=== PATIENT | female | born 1960 | race African-American/Black ===

== ENCOUNTER → 2016-07-04 | Outpatient (CLI) | payer OTHER ==
--- NOTE | 2016-07-04 17:15 | WOMENS IMAGING REPORT ---
EXAM DESCRIPTION: 3D DX MAMMO BILAT COMPLETED DATE/TIME: 07/04/2016 9:30 am REASON FOR STUDY: N63 LUMP R95.0 LOCALIZED ENLARGED LYMPH NODES C50.412 MALIG NEOPLASM OF UPPER-OUT ER QUADRANT OF LEFT FEMAL N63 UNSPECIFIED LUMP IN BREAST COMPARISON: PET-CT exams 09/19/2015, 05/14/2016 Multiple mammograms since 06/29/2015 TECHNIQUE: Standard craniocaudal and mediolateral oblique views of each breast recorded using digita l acquisition and breast tomosynthesis. Additional compression magnification views left breast lumpectomy site LIMITATIONS: None. FINDINGS: RIGHT BREAST MASSES: No suspicious masses. CALCIFICATIONS: No new or suspicious calcifications. ARCHITECTURAL DISTORTION: None. DEVELOPING DENSITY: None. ASYMMETRY: None noted. OTHER: No other significant findings. LEFT BREAST MASSES: No suspicious masses. CALCIFICATIONS: No new or suspicious calcifications. ARCHITECTURAL DISTORTION: Left breast 9 o'clock architectural distortion in the area of prior surgery . DEVELOPING DENSITY: None. ASYMMETRY: None noted. OTHER: No other significant finding. Read with the assistance of CAD: .[facility] - R2 Cenova Version 1.3 .[facility] Imaging - R2 Cenova Version 1.3 .[facility] - R2 Cenova Version 2.4 .[facility] [place] - R2 Cenova Version 2.4 .[facility] - R2 Shel[employer]ocate Version 9.2 BREAST DENSITY: d. The breasts are extremely dense, which lowers the sensitivity of mammography. BIRAD: 2 Benign findings. RECOMMENDATION: RECOMMENDED FOLLOW UP: Please continue right breast screening, left breast diagnosti c tomosynthesis exam in June 2017 SPECIFIC INTERVENTION/IMAGING/CONSULTATION RECOMMENDED:No additional intervention/ imaging/consultati on needed at this time. COMMUNICATION:Patient notified by letter COMMENT: PATIENT NOTIFIED BY LETTER. The [employer] (ACR) has developed recommendations for screening MRI of the breast s in certain patient populations, to be used in conjunction with mammography. Breast MRI surveillanc e may be appropriate for women with more than 20% lifetime risk of developing breast cancer as deter mined by genetic testing, significant family history of the disease, or history of mantle radiation f or Hodgkins Disease. ACR Practice Guidelines 2008. DBT Technology DBT is a type of tomographic mammography. With conventional mammography, overlapping breast tissue ma y make lesions difficult to detect, even with good compression. DBT uses an x-ray tube that rotates a round the breast, taking images at different angles. These images are then combined to create thin sl ices of the breast that the radiologist can view as a 3D reconstruction. The Hologic unit can perform full-field digital mammograms (2D imaging); or DBT (3D imaging); or both, in a combination mode that quickly performs both the mammogram and the tomosynthesis scan while the breast is still compressed. PQRS 6045F: Fluoroscopic imaging is not utilized for breast tomosynthesis. TECHNICAL DOCUMENTATION: FINDING NUMBER: (1) ASSESSMENT: (1) JOB ID: [id number] [employer]- All Rights Reserved
== END ==
LOC: RAD 08:08
PROVIDERS: ATTEND Radiology Radiation Oncology
DX: N63 Unspecified lump in breast (principal); R59.0 Localized enlarged lymph nodes
CPT/HCPCS: G0279; G0204; 77062; 77066

== ENCOUNTER → 2016-08-11 | Outpatient (CLI) | payer OTHER | LOC: RAD 07:36 | PROVIDERS: ATTEND Internal Medicine | DX: C01 Malignant neoplasm of base of tongue (principal) | CPT/HCPCS: 70491; 82565 ==

== ENCOUNTER → 2016-11-10 | Outpatient (CLI) | payer OTHER ==
--- NOTE | 2016-11-10 10:45 | RADIOLOGY REPORT (SQ) ---
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 Reconstructed coronal and sagittal MPR images reviewed. All images stored on PACS. All CT scanners at this facility use dose modulation, iterative reconstruction, and/or weight based d osing when appropriate to reduce radiation dose to as low as reasonably achievable (ALARA). [facility]: Dose Right [facility]: CareDose [facility]: Dose Right [facility]: Teradose 4D [facility]: StyleUp CONTRAST TYPE AND DOSE: 75mL Isovue 370- low osmolar. RENAL FUNCTION: Creatinine 0.8 RADIATION DOSE: 19.21 mGy. LIMITATIONS: Streak artifact from metallic dental work FINDINGS: SKULL BASE: Inferior brain parenchyma unremarkable MAJOR SALIVARY GLANDS: No solid or cystic masses. No inflammatory changes. LYMPHADENOPATHY: No adenopathy. Tiny less than 5 mm short axis submental lymph nodes are present unc hanged from imaging dating back to June 2015 MUCOSAL MASSES OR ASYMMETRY: No mucosal masses or asymmetry. LARYNX/CORDS: No abnormal findings. VASCULAR STRUCTURES: The major vessels are patent. LUNG APICES: Clear. BONES: Intact. THYROID: Normal size. No masses. PARANASAL SINUSES: Clear. OTHER: There is a right-sided central line with the tip in the superior cava IMPRESSION: NO SIGNIFICANT FINDING IN THE SOFT TISSUES OF THE NECK. TECHNICAL DOCUMENTATION: JOB ID: [id number] Quality ID # [id number]: Final reports with documentation of one or more dose reduction techniques (e.g., Au tomated exposure control, adjustment of the mA and/or kV according to patient size, use of iterative reconstruction technique) 2010 [employer]- All Rights Reserved
== END ==
LOC: RAD 07:23
PROVIDERS: ATTEND Internal Medicine
DX: C01 Malignant neoplasm of base of tongue (principal)
CPT/HCPCS: 70491; 82565

== ENCOUNTER → 2017-03-15 | Outpatient (CLI) | payer OTHER | LOC: OD 15:33 | PROVIDERS: ATTEND Nurse Practitioner Acute Care | DX: R50.9 Fever, unspecified (principal) | CPT/HCPCS: 87086; 87804 ==

== ENCOUNTER → 2017-05-07 | Outpatient (CLI) | payer OTHER ==
--- NOTE | 2017-05-07 11:31 | RADIOLOGY REPORT (SQ) ---
EXAM DESCRIPTION: VENOUS UNILATERAL UPPER COMPLETED DATE/TIME: 05/07/2017 10:46 am REASON FOR STUDY: RUE HX DVT I82.629 I82.629 ACUTE EMBOLISM AND THROMBOSIS OF DEEP VN UNSP UP EXT COMPARISON: None. TECHNIQUE: Dynamic and static rey scale and color images acquired of the right arm venous system. S elected spectral images acquired with additional compression and augmentation maneuvers. The contrala teral subclavian vein and internal jugular vein were also imaged. Images stored on PACS. LIMITATIONS: None. FINDINGS: INTERNAL JUGULAR VEIN: Normal phasicity, compression, augmentation. No visualized echogeni c material on rey scale. No defects on color images. Comparison opposite side normal. SUBCLAVIAN VEIN: Normal compression, augmentation. No visualized echogenic material on rey scale. No defects on color images. AXILLARY VEIN: Normal compression, augmentation. No visualized echogenic material on rey scale. No d efects on color images. BRACHIAL VEIN: Normal compression, augmentation. No visualized echogenic material on rey scale. No d efects on color images. BASILIC VEIN: Normal compression, augmentation. No visualized echogenic material on rey scale. No de fects on color images. CEPHALIC VEIN: Normal compression, augmentation. No visualized echogenic material on rey scale. No d efects on color images. OTHER: No other significant finding. CONTRALATERAL SUBCLAVIAN VEIN AND INTERNAL JUGULAR VEIN: Normal phasicity, compression and augmentation. No visualized echogenic material on rey scale. No de fects on color images. IMPRESSION: NO EVIDENCE DVT OR SVT IN THE RIGHT ARM. TECHNICAL DOCUMENTATION: JOB ID: [id number] [employer]- All Rights Reserved
== END ==
LOC: SP 09:09
PROVIDERS: ATTEND Internal Medicine
DX: I82.621 Acute embolism and thrombosis of deep veins of right upper extremity (principal)
CPT/HCPCS: 93971

== ENCOUNTER → 2017-05-20 | Outpatient (CLI) | payer OTHER ==
--- NOTE | 2017-05-21 18:09 | RADIOLOGY REPORT (SQ) ---
EXAM DESCRIPTION: PET CT SKULL/THIGH COMPLETED DATE/TIME: 05/20/2017 9:06 pm REASON FOR STUDY: MALIGNANT NEOPLASM OF BASE OF TONGUE C01 MALIGNANT NEOPLASM OF BASE OF TONGUE COMPARISON: CT soft tissue neck 11/10/2016, 08/11/2016 PET-CT 05/14/2016, 09/19/2015, 07/04/2015 RADIONUCLIDE AND DOSE: 12.3 mCi F18 FDG The route of agent administration: Intravenous FASTING BLOOD SUGAR: 87 mg/dl CONTRAST TYPE AND DOSE: No CT contrast given. TECHNIQUE: Blood glucose level was verified. Above dose of FDG was injected intravenously. 2-D seg mented attenuation correction images were obtained from the base of the skull to the midthighs. Nonc ontrast CT images were obtained for attenuation correction and fusion with emission images. CT image s were performed without oral or intravenous contrast and are not sensitive for parenchymal lesions. A series of overlapping emission PET images were obtained. Images reviewed and manipulated [facility] by the radiologist. Images stored on PACS. LIMITATIONS: None. FINDINGS: HEAD AND NECK: Patient is surgery, with multiple clips along the left floor of mouth, and fatty atrophy of the left half of the time. No increased metabolic activity in this area seen. There is increased uptake along the right mid 3rd of the tongue without a discrete mass by CT, SUV 4. 3. There is also activity in the right submandibular gland which is normal size, with SUV of 3.1. A focus of increased uptake is present in the left nasopharynx at the fossa of Rosenmuller without a discrete mass, activity SUV 5.4. CHEST: No areas of abnormal metabolic activity in the chest. No axillary or breast hypermetabolic le sions. ABDOMEN AND PELVIS: No areas of abnormal metabolic activity in the abdomen or pelvis. Expected physi ologic activity is present in the genitourinary system and bowel. PROXIMAL LOWER EXTREMITIES: No areas of abnormal metabolic activity in the soft tissues of the lower extremities. BONES: No abnormal metabolic activity in the visualized skeleton. ADDITIONAL CT FINDINGS: Right upper pole intrarenal nonobstructive calculus less than 5 mm in size. Gastrostomy tube tip in the gastric body. Right permanent central line tip superior vena cava. Pulm onary fibrosis at both lung bases. OTHER: Liver background activity 2.1 SUV. Blood pool background activity 1.5 SUV. IMPRESSION: Post therapeutic changes in the left floor of mouth with fatty atrophy of the left tongu e and surgical resection of the left submandibular gland and jugulodigastric lymph nodes. No increas ed metabolic activity in this area. Increased activity in the right half of the tongue and right submandibular gland of uncertain clinica l significance Focal increased uptake in the left nasopharynx, without a discrete mass. Question nasopharyngeal muc osal malignancy Save TECHNICAL DOCUMENTATION: JOB ID: [id number] [employer]- All Rights Reserved
== END ==
LOC: RAD 16:08
PROVIDERS: ATTEND Internal Medicine
DX: C01 Malignant neoplasm of base of tongue (principal)
CPT/HCPCS: 78815; A9552

== ENCOUNTER → 2017-07-10 | Outpatient (CLI) | payer OTHER ==
--- NOTE | 2017-07-11 08:01 | WOMENS IMAGING REPORT ---
EXAM DESCRIPTION: 3D DX MAMMO BILAT COMPLETED DATE/TIME: 07/10/2017 9:22 am REASON FOR STUDY: FEMALE BREAST CA; C50.412 C50.412 MALIG NEOPLASM OF UPPER-OUTER QUADRANT OF LEFT FEMAL COMPARISON: Multiple since 06/29/2015 PET-CT 05/20/2017 TECHNIQUE: Standard craniocaudal and mediolateral oblique views of each breast recorded using digita l acquisition and breast tomosynthesis. Additional left breast exaggerated craniocaudad view, left breast 90 mediolateral view and compressi on magnification views of the left breast lumpectomy site in the CC and MLO orientations. LIMITATIONS: None. FINDINGS: RIGHT BREAST MASSES: No suspicious masses. CALCIFICATIONS: No new or suspicious calcifications. ARCHITECTURAL DISTORTION: None. DEVELOPING DENSITY: None. ASYMMETRY: None noted. OTHER: No other significant findings. LEFT BREAST MASSES: No suspicious masses. CALCIFICATIONS: No new or suspicious calcifications. ARCHITECTURAL DISTORTION: Postoperative architectural distortion is seen in the lateral left breast a bout the 3 o'clock position DEVELOPING DENSITY: None. ASYMMETRY: None noted. OTHER: There is skin thickening left breast post radiation therapy Read with the assistance of CAD: .[facility] - R[facility] Cenova Version 1.3 .[facility] Imaging - R2 Cenova Version 1.3 .[facility] Imaging - R2 Cenova Version 2.4 .[facility] [place] - R2 Cenova Version 2.4 .[facility] - R2 [employer] Version 9.2 IMPRESSION: No mammographic/tomosynthesis evidence for malignancy bilaterally. BREAST DENSITY: d. The breasts are extremely dense, which lowers the sensitivity of mammography. BIRAD: 2 Benign findings. RECOMMENDATION: RECOMMENDED FOLLOW UP: Please continue right breast screening tomosynthesis, left br east diagnostic tomosynthesis in June 2018 SPECIFIC INTERVENTION/IMAGING/CONSULTATION RECOMMENDED:No additional intervention/ imaging/consultati on needed at this time. COMMUNICATION:Patient notified by letter COMMENT: The patient has been notified of the results by letter per MQSA requirements. Additional no tification policies are in place for contacting patient with suspicious or incomplete findings. Quality ID #[id number]: The [employer] recommends an annual screening mammogram for women aged 40 years or over. This facility utilizes a reminder system to ensure that all patients receive reminder letters, and/or direct phone calls for appointments. This includes reminders for routine scr eening mammograms, diagnostic mammograms, or other Breast Imaging Interventions when appropriate. Th is patient will be placed in the appropriate reminder system. The [employer] (ACR) has developed recommendations for screening MRI of the breast s in certain patient populations, to be used in conjunction with mammography. Breast MRI surveillanc e may be appropriate for women with more than 20% lifetime risk of developing breast cancer as deter mined by genetic testing, significant family history of the disease, or history of mantle radiation f or Hodgkins Disease. ACR Practice Guidelines 2008. DBT Technology DBT is a type of tomographic mammography. With conventional mammography, overlapping breast tissue ma y make lesions difficult to detect, even with good compression. DBT uses an x-ray tube that rotates a round the breast, taking images at different angles. These images are then combined to create thin sl ices of the breast that the radiologist can view as a 3D reconstruction. The [facility] unit can perform full-field digital mammograms (2D imaging); or DBT (3D imaging); or both, in a combination mode that quickly performs both the mammogram and the tomosynthesis scan while the breast is still compressed. PQRS 6045F: Fluoroscopic imaging is not utilized for breast tomosynthesis. TECHNICAL DOCUMENTATION: FINDING NUMBER: (1) ASSESSMENT: (1) JOB ID: [id number] [employer]- All Rights Reserved
== END ==
LOC: WI 08:58
PROVIDERS: ATTEND Internal Medicine
DX: C50.412 Malignant neoplasm of upper-outer quadrant of left female breast (principal)
CPT/HCPCS: 77066; G0279; 77062

== ENCOUNTER → 2017-09-24 | Outpatient (CLI) | payer OTHER ==
[~2017-09-24] MED LIST: LIDOCAINE 2% INJ (20 MG/ML) 20 ML MDV ONE
--- NOTE | 2017-09-24 17:05 | WOMENS IMAGING REPORT ---
EXAM DESCRIPTION: U/S BREAST UNILAT LIMITED COMPLETED DATE/TIME: 09/24/2017 9:49 am REASON FOR STUDY: MALIGNANT NEOPLASM OF UPPER-INNER QUAD OF L BREAST; C50.212 C50.212 MALIG NEOPLAS M OF UPPER-INNER QUADRANT OF LEFT FEMAL COMPARISON: CT chest abdomen pelvis 09/14/2017 PET-CT 05/20/2017 TECHNIQUE: Real-time and static grayscale imaging performed of the left axilla targeted to the area of clinical concern. Selected color Doppler images recorded. LIMITATIONS: None. FINDINGS: Patient indicates pain/tenderness in the left axilla with questionable palpable abnormalit y. Ultrasound was performed by both myself as well as the technologist. No discrete solid mass is ident ified. There is faint bandlike scar in the left axilla, without a discrete nodule or mass. No biops y in this area was performed today. These findings were discussed with Dr. Calle. IMPRESSION: No suspicious findings detected by ultrasound. BIRAD: 1 Negative. RECOMMENDATION: RECOMMENDED FOLLOW-UP: Follow-up as clinically indicated. COMMENT: The [employer] (ACR) has developed recommendations for screening MRI of the breasts in certain patient populations, to be used in conjunction with mammography. Breast MRI s urveillance may be appropriate for women with more than 20% lifetime risk of developing breast cancer as determined by genetic testing, significant family history of the disease, or history of mantle r adiation for Hodgkins Disease. ACR Practice Guidelines 2007. TECHNICAL DOCUMENTATION: JOB ID: [id number] [employer]- All Rights Reserved Reading location - IP/workstation name: [email or web address]
== END ==
LOC: WI 08:15 → EDSTATUS 09:56 → WI 09:59
PROVIDERS: ATTEND Internal Medicine
DX: C50.212 Malignant neoplasm of upper-inner quadrant of left female breast (principal)
CPT/HCPCS: 76642; J3490

== ENCOUNTER → 2017-09-27 | Outpatient (CLI) | payer OTHER ==
--- NOTE | 2017-09-27 12:39 | RADIOLOGY REPORT (SQ) ---
EXAM DESCRIPTION: COOKIE SWALLOW COMPLETED DATE/TIME: 09/27/2017 8:38 am REASON FOR STUDY: DYSPHAGIA R13.10 DYSPHAGIA, UNSPECIFIED tongue base malignancy C 02.9 food in pha rynx causing other injury, sequela T17.228 S COMPARISON: CT neck 09/14/2017 TECHNIQUE: Videofluoroscopic swallowing examination was performed in conjunction with speech patholo gy. Videofluoroscopic imaging was obtained and reviewed and these are the findings: RADIATION DOSE: Total fluoroscopy time: 3 minutes 57 seconds 2 fluoroscopy images saved to PACS. LIMITATIONS: None FINDINGS: The patient was brought into the fluoro room and placed upright on a modified barium swall ow chair. The patient was then given multiple consistencies mixed with barium to swallow under live fluoroscopic video guidance. According to the Speech Pathologist there was laryngeal penetration and tracheal aspiration with post swallow residuals following multiple consistencies. Very weak swallow ing mechanism is noted. Moderate post swallow residual materials noted within the vallecula and piri form sinuses following multiple consistencies. Multiple surgical clips noted overlying the neck. Pl ease see speech pathology report for further details and recommendations. IMPRESSION: VERY WEAK SWALLOWING MECHANISM WITH LARYNGEAL PENETRATION AND TRACHEAL ASPIRATION OF POS T SWALLOW RESIDUALS FOLLOWING MULTIPLE CONSISTENCIES.PLEASE SEE SPEECH PATHOLOGIST REPORT FOR OTHER F INDINGS AND RECOMMENDATIONS. COMMENT: Quality ID [id number]: Final reports for procedures using fluoroscopy that document radiation exp osure indices, or exposure time and number of fluorographic images (if radiation exposure indices are not available) TECHNICAL DOCUMENTATION: JOB ID: [id number] [employer]- All Rights Reserved Reading location - IP/workstation name: [email or web address]
--- NOTE | 2017-09-28 08:34 | ST Modified Barium Swallow ---
Recommendation - Recommendations Recommendations: Recommend nectar thick and honey thick consistencies for pleasure feeds and therapeutic trials. May have small thin liquid spoon sips utilizing modified supraglottic swallow maneuver. Recommend patient continue with dysphagia treatment to try to increase textures able to tolerate. 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 ST Modified Barium Swallow - General Date: 09/27/17 Referring Physician: Dr. Calle Risks/Precautions: Aspiration Reason for Referral: monitor swallowing skills - History History obtained from: Patient -: Medical - Ms. Levy had base of tongue resection, partial pharyngectomy, and free flap reconstruction performed 01/22/17. Ms. Levy reports had swallow study at Dr. Lima's office. Reports recommended she eat soups and nectar thick liquids. Ms. Levy continues to be PEG dependent for nutrition and hydration, reports takes very little by mouth because it is difficult to swallow. She had 2.5 months through home health speech therapy and reports improvements in speech. Reports before speech was barely talking at all. Also reports improvement in swallowing - reports after treatment able to drink nectar thick liquids. Ms. Levy is currently receiving outpatient dysphagia treatment, utilizing NMES in conjunction with dysphagia exercises and PO trials. Medications: Oxycodine. Antibiotic Allergies: Aspirin - Functional Status Prior Functional Status: INDEPENDENT: feeding - Subjective Patient/caregiver goal(s): better swallow, safe swallow Cognitive-Linguistic Function: WNL Speech Intelligibility: Reduced intelligibility Current Nutritional Means: PEG Current PO diet: Thickened liquids - nectar liquids Current symptoms: Aspiration Pain: Patient reports, 0/5 - patient stated she wasn't feeling "well", but no pain reported. - Objective Assessment: Upright, Left Lateral - Food Trials Used Food trials used: Thin liquids, Honey-thickened liquids, [place] thick liquids, Pureed The patient: Was Able to Self Feed, via spoon - Oral-Motor Skills Dentition: Full Velo-pharyngeal function: Unremarkable - Assessment Oral prep: Adeq, for consist. tested Labial closure: Adequate Leakage: None Mastication: no chewing observed Lingual Movement: Weak - reduced base of tongue retraction Oral stage: Impaired Bolus Propulsion Oral Stage: Patient was unable to propel puree bolus back for swallow attempt, patient spit out pudding trial. - Pharyngeal Stage Initiation of Pharyngeal Stage Reflex: Delayed Reflex Delay Time (Seconds): 2 - due to reduced BOT retraction Decreased laryngeal elevation: Yes Reduced Velopharyngeal Closure: no Reduced pressure generation: Yes reduced tongue-based retraction: Yes Pre-swallow pooling in valleculae: Mild Pre-Swallow pooling in pyriforms: None Reduced Thyro-Hyoid approximation: Yes Reduced pharyngeal peristalsis/contraction: Yes Multiple Swallows with: Ineffective Clearance Post-swallow residulas vallecular: Mild Post-Swallow residuals in pyriforms: Moderate Pharyngeal Stage Comments: Patient demonstrated generally reduced movement for pharyngeal stage of the swallow. Residue was seen to remain in valleculae and pyriform sinus, which was then seen to enter laryngeal vestibule after the swallow. Penetration seen on nectar liquids and thin liquids, aspiration seen on thin liquids. Utilized modified supraglottic swallow technique for subsequent thin liquid trials, which reduced aspiration by redirecting penetrated material from laryngeal vestibule. For honey thick liquids, reduced penetration seen. Patient consistently requires multiple swallow for clearance of all textures. - Fall Risk Assessment Medications/Conditions that increase fall risks include: Antidepressants, sedatives, anti-arrhythmic, diuretic, benzodiazipenes, neuroleptics. BP regulation problems, cardiac problems, balance or gait deficits, neurological problems. Is patient considered at risk for falls: no Fall Risk Actions Taken: No action needed - Behavioral Observations During evaluation process patient: was cooperative, able to answer questions - Treatment / Educational Needs: Treatment/Education Needs: Treatment consisted of patient education on the role of the Speech Pathologist. Patient's plan of care and golas were communicated as well as scheduling and attendance policies. Recommendations for initial home program were shared. Patient demonstrated understanding and verbalized agreement. - Impression/Summary Laryngeal Penetration: Yes, after swallow Consistency: Thin, [place] Tracheal Aspiration: yes - thin liquids, cough, after swallow Productive cough: Yes Effective Clearing: partial clearing Effective compensatory strategies: throat clear & reswallow, supraglottic swallow Patient presents with: Oral-Pharyngeal dysph., Severe Risk of Aspiration: Moderate Evaluation and Findings: This patient presents with severe oral and pharyngeal phase dysphagia. This is characterized by reduced bolus propulsion, reduced tongue base retraction, and reduced laryngeal elevation/pharyngeal constriction. These deficits resulted in significant residue in the pharynx after the swallow, which then lead to penetration and/or aspiration of residuals after the swallow. Safest textures were judged to be nectar and honey thick consistencies. Patient demonstrated reduced aspiration of thin liquids using modified supraglottic/throat-clear and reswallow maneuver. - Recommendations Liquid Diet Modification: Honey-Thick, [place]-Thick, Thin - with strategies Strict aspiration precautions: Yes Pt/Family education and followup with MD: Yes Dysphagia therapy with PUMPMAN: f/u with current thera. Recommended techniques: Fully Upright During Meal, Liquids by Teaspoon Only Information, Precautions and Recommendations: Patient (Written), Patient (Verbal ) - Plan of Care Patient to follow-up with referring physician: Yes Strategies to optimize patient understanding include:: ongoing assessment of educational needs, implementation of educational strategies, and re-education. - - -: Thank you for the opportunity to work with this patient and his/her family. Should you have any questions about this patient's plan or progress, I can be reached at [phone]. Charge G Code? - - -: No
== END ==
LOC: RAD 07:35
PROVIDERS: ATTEND Internal Medicine
DX: R13.10 Dysphagia, unspecified (principal)
CPT/HCPCS: 74230

== ENCOUNTER → 2018-01-18 | Outpatient (CLI) | payer OTHER ==
--- NOTE | 2018-01-18 13:29 | RADIOLOGY REPORT (SQ) ---
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 TECHNIQUE: Axial images acquired through the brain without and with intravenous contrast. Images re viewed with bone, brain and subdural windows. Additional sagittal and coronal reconstructions were g enerated. Images stored on PACS. All CT scanners at this facility use dose modulation, iterative reconstruction, and/or weight based d osing when appropriate to reduce radiation dose to as low as reasonably achievable (ALARA). [facility]: Dose Right [facility]: CareDose [facility]: Dose Right [facility]: Teradose 4D [facility]: [facility] CONTRAST TYPE AND DOSE: 75 mL Omnipaque 350- low osmolar. RENAL FUNCTION: Creatinine 0.6. RADIATION DOSE: . LIMITATIONS: None. FINDINGS: VENTRICLES: Normal size and contour. CEREBRUM: No masses. No hemorrhage. No midline shift. Normal rey/white matter differentiation. No ev idence for acute infarction. No enhancing lesions. CEREBELLUM: No masses. No hemorrhage. No alteration of density. No evidence for acute infarction. No enhancing lesions. EXTRA-AXIAL SPACES: No fluid collections. No enhancing lesions. ORBITS AND GLOBE: No intra- or extraconal masses. Normal contour of globe without masses. CALVARIUM: No fracture. PARANASAL SINUSES: No fluid or mucosal thickening. SOFT TISSUES: No mass or hematoma. OTHER: No other significant finding. IMPRESSION: NORMAL BRAIN CT WITHOUT AND WITH CONTRAST. EVIDENCE OF ACUTE STROKE: NO. TECHNICAL DOCUMENTATION: JOB ID: [id number] Quality ID # [id number]: Final reports with documentation of one or more dose reduction techniques (e.g., Au tomated exposure control, adjustment of the mA and/or kV according to patient size, use of iterative reconstruction technique) 2010 [employer]- All Rights Reserved Reading location - IP/workstation name: [email or web address]
--- NOTE | 2018-01-18 13:39 | RADIOLOGY REPORT (SQ) ---
EXAM DESCRIPTION: CT SOFT TISSUE NECK WITH COMPLETED DATE/TIME: 01/18/2018 1:09 pm REASON FOR STUDY: C01 C01 MALIGNANT NEOPLASM OF BASE OF TONGUE COMPARISON: 09/14/2017 and 11/10/2016. TECHNIQUE: Post IV contrasted scanning from skull base through lung apices with review of bone, soft tissue and lung windows. Reconstructed coronal and sagittal MPR images reviewed. All images stored on PACS. All CT scanners at this facility use dose modulation, iterative reconstruction, and/or weight based d osing when appropriate to reduce radiation dose to as low as reasonably achievable (ALARA). [facility]: Dose Right [facility]: CareDose [facility]: Dose Right [facility]: Teradose 4D [facility]: [facility] CONTRAST TYPE AND DOSE: contrast/concentration: Isovue 350.00 mg/ml; Total Contrast Delivered: 75.0 ml; Total Saline Delivered: 55.0 ml RENAL FUNCTION: Creatinine 0.6. RADIATION DOSE: CT Rad equipment meets quality standard of care and radiation dose reduction techniq ues were employed. CTDIvol: 16.6 - 48.6 mGy. DLP: 2331 mGy-cm. . LIMITATIONS: None. FINDINGS: SKULL BASE: Intact. MAJOR SALIVARY GLANDS: No solid or cystic masses. No inflammatory changes. LYMPHADENOPATHY: Previously seen submental lymph node on the right side is unchanged, measuring appro ximately 9 mm. Previously seen lymph node immediately adjacent to the angle of the mandible also unc hanged, measuring approximately 8 mm. There is a lymph node located just superficial to the vascular bundle on the right which has increased in size. Current measurements are 9 x 12 mm. This is immed iately adjacent to the skin marker. This is at the level of the angle of the mandible. MUCOSAL MASSES OR ASYMMETRY: Again seen are stable surgical changes involving the floor of the mouth on the left side with numerous surgical clips and fatty changes. LARYNX/CORDS: No abnormal findings. VASCULAR STRUCTURES: The major vessels are patent. LUNG APICES: Clear. BONES: Intact. THYROID: Normal size. No masses. PARANASAL SINUSES: Clear. OTHER: No other significant finding. IMPRESSION: 1. PALPABLE FINDING ON THE RIGHT SIDE CORRESPONDS WITH AN ENLARGED CERVICAL LYMPH NODE WHICH HAS INCR EASED IN SIZE SINCE THE PRIOR STUDY. OTHER LYMPH NODES IN THE SUBMANDIBULAR AND SUBMENTAL REGION ARE UNCHANGED. NO OTHER SIGNIFICANT CERVICAL ADENOPATHY. 2. STABLE SURGICAL CHANGES INVOLVING THE FLOOR OF THE MOUTH ON THE LEFT. TECHNICAL DOCUMENTATION: JOB ID: [id number] Quality ID # 436: Final reports with documentation of one or more dose reduction techniques (e.g., Au tomated exposure control, adjustment of the mA and/or kV according to patient size, use of iterative reconstruction technique) 2010 [employer]- All Rights Reserved Reading location - IP/workstation name: [facility]
== END ==
LOC: RAD 12:23
PROVIDERS: ATTEND Internal Medicine
DX: C01 Malignant neoplasm of base of tongue (principal)
CPT/HCPCS: 70470; 70491; 82565

== ENCOUNTER → 2018-01-22 | Outpatient (CLI) | payer OTHER ==
--- NOTE | 2018-01-23 08:41 | RADIOLOGY REPORT (SQ) ---
EXAM DESCRIPTION: PET CT SKULL/THIGH COMPLETED DATE/TIME: 01/22/2018 7:37 pm REASON FOR STUDY: MALIGNANT NEOPLASM OF BASE OF TONGUE C01 MALIGNANT NEOPLASM OF BASE OF TONGUE COMPARISON: CT soft tissue neck 01/18/2018 CT soft tissue neck chest abdomen and pelvis 09/24/2017 PET-CT 05/20/2017, 05/24/2016, 07/04/2015 RADIONUCLIDE AND DOSE: 11.5 mCi F18 FDG The route of agent administration: Intravenous FASTING BLOOD SUGAR: 81 mg/dl CONTRAST TYPE AND DOSE: No CT contrast given. TECHNIQUE: Blood glucose level was verified. Above dose of FDG was injected intravenously. 2-D seg mented attenuation correction images were obtained from the base of the skull to the midthighs. Nonc ontrast CT images were obtained for attenuation correction and fusion with emission images. CT image s were performed without oral or intravenous contrast and are not sensitive for parenchymal lesions. A series of overlapping emission PET images were obtained. Images reviewed and manipulated at [facility] work station by the radiologist. Images stored on PACS. LIMITATIONS: None. FINDINGS: HEAD AND NECK: At the tip of the tongue, just to the left of midline 8 2 cm mass is presen t which is hypermetabolic, SUV of 8.3 worrisome for tumor recurrence. Remainder of the leftward half of the tongue exhibits fatty atrophy. In the right neck soft tissues deep to the sternocleidomastoid muscle, a 3 x 1.6 cm conglomerate mass of adenopathy is present on axial image 34 with SUV of 5.7. The right clavicle itself demonstrates a subcentimeter focus of bony activity of SUV 2.9 worrisome fo r bony metastatic lesion. Remainder of the neck soft tissues demonstrates postsurgical changes along the left tongue base with denervation and fatty change. CHEST: No areas of abnormal metabolic activity in the chest. ABDOMEN AND PELVIS: No areas of abnormal metabolic activity in the abdomen or pelvis. Expected physi ologic activity is present in the genitourinary system and bowel. PROXIMAL LOWER EXTREMITIES: No areas of abnormal metabolic activity in the soft tissues of the lower extremities. BONES: Punctate subcentimeter focus of increased activity in the right clavicle worrisome for metasta tic involvement ADDITIONAL CT FINDINGS: Stones in the gallbladder. Gastrostomy tube tip in the stomach OTHER: Liver background SUV 1.9. Blood pool background SUV 1.4 IMPRESSION: Hypermetabolic soft tissue at the tip of the tongue to the left of midline worrisome for recurrent tumor. Right neck metabolically active adenopathy. Punctate focus of activity right clavicle were from meta static disease TECHNICAL DOCUMENTATION: JOB ID: [id number] [employer]- All Rights Reserved Reading location - IP/workstation name: [email or web address]
== END ==
LOC: RAD 15:59
PROVIDERS: ATTEND Internal Medicine
DX: C01 Malignant neoplasm of base of tongue (principal)
CPT/HCPCS: 78815; A9552

== ENCOUNTER → 2018-02-08 | Day surgery (SDC) | payer OTHER ==
--- NOTE | 2018-02-08 10:51 | RADIOLOGY REPORT (SQ) ---
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 TECHNIQUE: Using a sterile prep technique an old g-tube was exchanged for a new one. Fluoroscopic i mages were saved to PACS demonstrating the final position. RADIATION DOSE: 28 seconds 3 digital radiographic images saved to PACS. LIMITATIONS: None. FINDINGS: After consent was obtained, the patient was placed on the fluoroscopy table and the existi ng G-tube was prepped and draped in a sterile fashion. 10 mL of Isovue-300 was injected into the exi sting tube, confirming tube tip placement in the stomach. A YBARRA wire was placed through the existing G-tube and into the stomach. The existing tube was exch anged for a 20 Fr G-tube. Approximately 10 mL of Isovue-300 contrast was used to confirm placement. Contrast was seen emptying out of the stomach and into the small bowel. IMPRESSION: Successful G tube exchange. COMMENT: Quality ID 145: Final reports for procedures using fluoroscopy that document radiation exp osure indices, or exposure time and number of fluorographic images (if radiation exposure indices are not available) TECHNICAL DOCUMENTATION: JOB ID: [id number] [employer]- All Rights Reserved Reading location - IP/workstation name: [email or web address]
--- NOTE | 2018-02-08 10:51 | RADIOLOGY REPORT (SQ) ---
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 TECHNIQUE: Using a sterile prep technique an old g-tube was exchanged for a new one. Fluoroscopic i mages were saved to PACS demonstrating the final position. RADIATION DOSE: 28 seconds 3 digital radiographic images saved to PACS. LIMITATIONS: None. FINDINGS: After consent was obtained, the patient was placed on the fluoroscopy table and the existi ng G-tube was prepped and draped in a sterile fashion. 10 mL of Isovue-300 was injected into the exi sting tube, confirming tube tip placement in the stomach. A YBARRA wire was placed through the existing G-tube and into the stomach. The existing tube was exch anged for a 20 Fr G-tube. Approximately 10 mL of Isovue-300 contrast was used to confirm placement. Contrast was seen emptying out of the stomach and into the small bowel. IMPRESSION: Successful G tube exchange. COMMENT: Quality ID 145: Final reports for procedures using fluoroscopy that document radiation exp osure indices, or exposure time and number of fluorographic images (if radiation exposure indices are not available) TECHNICAL DOCUMENTATION: JOB ID: [id number] [employer]- All Rights Reserved Reading location - IP/workstation name: [email or web address]
== END ==
LOC: RAD 09:14
PROVIDERS: ATTEND Internal Medicine
DX: C01 Malignant neoplasm of base of tongue (principal)
CPT/HCPCS: 49450; 75984

== ENCOUNTER → 2018-04-11 | Outpatient (CLI) | payer OTHER | LOC: OD 16:02 | PROVIDERS: ATTEND Internal Medicine | DX: J03.00 Acute streptococcal tonsillitis, unspecified (principal) | CPT/HCPCS: 87070; 87077; 87880 ==

== ENCOUNTER → 2018-04-18 | Outpatient (CLI) | payer OTHER ==
--- NOTE | 2018-04-18 12:40 | RADIOLOGY REPORT (SQ) ---
EXAM DESCRIPTION: CT SOFT TISSUE NECK WITH COMPLETED DATE/TIME: 04/18/2018 11:37 am REASON FOR STUDY: MALIGNANT NEOPLASM OF BASE OF TONGUE C01 MALIGNANT NEOPLASM OF BASE OF TONGUE COMPARISON: PET-CT 01/22/2018 CT soft tissue neck 01/18/2018, 09/14/2017, 11/10/2016, 08/11/2016 TECHNIQUE: Post IV contrasted scanning from skull base through lung apices with review of bone, soft tissue and lung windows. Reconstructed coronal and sagittal MPR images reviewed. All images stored on PACS. All CT scanners at this facility use dose modulation, iterative reconstruction, and/or weight based d osing when appropriate to reduce radiation dose to as low as reasonably achievable (ALARA). [facility]: Dose Right [facility]: CareDose [facility]: Dose Right [facility]: Teradose 4D [facility]: [employer] CONTRAST TYPE AND DOSE: 80 Omnipaque 350- low osmolar. RENAL FUNCTION: GFR > 60. RADIATION DOSE: 17 mGy . LIMITATIONS: None. FINDINGS: SKULL BASE: Intact. MAJOR SALIVARY GLANDS: No solid or cystic masses. No inflammatory changes. LYMPHADENOPATHY: There are stable lymph nodes compared to prior studies from 2018 as follows: 1.2 x 1.1 cm submandibular lymph node image 53 is unchanged from 01/18/2018 and 09/14/2017. Right submandibular triangle 1.5 x 0.7 cm lymph node similar compared to 01/18/2018 and 09/14/2017 accou nting for differences in technique. Prior PET-CT demonstrated a ridge of metabolically active tissue deep to the right sternocleidomastoi d muscle which had ill-defined margins in was difficult to measure by CT. On today's exam, this ridg e of soft tissue is less prominent than on the prior PET-CT 01/22/2018. MUCOSAL MASSES OR ASYMMETRY: Post surgical changes are present along the left floor of mouth/submand ibular triangle region, with old healed midline mandibular osteotomy. Fatty atrophy of the leftward half of the tongue. Left submandibular gland has been resected. Along the anterior superior edge of the surgical clips in the left floor of mouth, recent PET-CT 01/22 demonstrated hypermetabolic activity over a 2 cm area which was difficult to see as a discrete mass on accompanying non con CT images. On today's study, there is stable soft tissue along the ante rior edge of the staple line similar compared to 01/22/2018 PET-CT. LARYNX/CORDS: No abnormal findings. VASCULAR STRUCTURES: The major vessels are patent. LUNG APICES: Clear. BONES: Intact. THYROID: Normal size. No masses. PARANASAL SINUSES: Clear. OTHER: No other significant finding. IMPRESSION: No progression of disease compared to prior PET-CT and prior CT soft tissue neck exams f rom 2017 TECHNICAL DOCUMENTATION: JOB ID: [id number] Quality ID # [id number]: Final reports with documentation of one or more dose reduction techniques (e.g., Au tomated exposure control, adjustment of the mA and/or kV according to patient size, use of iterative reconstruction technique) 2010 [employer]- All Rights Reserved Reading location - IP/workstation name: [email or web address]
--- NOTE | 2018-04-18 15:35 | RADIOLOGY REPORT (SQ) ---
EXAM DESCRIPTION: CT CHEST WITH COMPLETED DATE/TIME: 04/18/2018 11:37 am REASON FOR STUDY: MALIGNANT NEOPLASM OF BASE OF TONGUE C01 MALIGNANT NEOPLASM OF BASE OF TONGUE COMPARISON: 09/14/2017 TECHNIQUE: CT scan of the chest performed using helical scanning technique with dynamic intravenous contrast injection. Images reviewed with lung, soft tissue and bone windows. Reconstructed coronal and sagittal MPR and MIP images reviewed. All images stored on PACS. All CT scanners at this facility use dose modulation, iterative reconstruction, and/or weight based d osing when appropriate to reduce radiation dose to as low as reasonably achievable (ALARA). [facility]: Dose Right [facility]: CareDose [facility]: Dose Right [facility]: Teradose 4D [facility]: [employer] CONTRAST TYPE AND DOSE: contrast/concentration: Isovue 350.00 mg/ml; Total Contrast Delivered: 80.0 ml; Total Saline Delivered: 55.0 ml RENAL FUNCTION: BUN 12 creatinine 0.6 GFR 112 RADIATION DOSE: . LIMITATIONS: None. FINDINGS: LUNGS AND PLEURA: There is patchy opacification in the right upper lobe with ground-glass infiltrates and ground-glass nodularity. Bilateral lower lobe bronchiectasis with peripheral interst itial changes. Mild anterior right middle lobe bronchiectasis. HILAR AND MEDIASTINAL STRUCTURES: No identified masses or abnormal nodes. HEART AND VASCULAR STRUCTURES: No aneurysm or dissection. No central pulmonary emboli. No pericardi al effusion. HARDWARE: Injection port on the right. UPPER ABDOMEN: No significant findings. Limited exam. THYROID AND OTHER SOFT TISSUES: No masses. No adenopathy. BONES: No significant finding. OTHER: No other significant finding. IMPRESSION: 1. Patchy opacification in the right upper lobe. Ground-glass infiltrates in ground-gl ass nodularity. No solid nodules are appreciated. Cannot exclude an atypical infectious process. T he overall appearance of the lungs is not suggest pulmonary metastatic disease. 2. Bronchiectasis and associated pulmonary fibrosis. TECHNICAL DOCUMENTATION: JOB ID: [id number] Quality ID # [id number]: Final reports with documentation of one or more dose reduction techniques (e.g., Au tomated exposure control, adjustment of the mA and/or kV according to patient size, use of iterative reconstruction technique) 2010 [employer]- All Rights Reserved Reading location - IP/workstation name: [facility]
== END ==
LOC: RAD 11:01
PROVIDERS: ATTEND Internal Medicine
DX: C01 Malignant neoplasm of base of tongue (principal)
CPT/HCPCS: 70491; 71260

== ENCOUNTER 2018-05-24 09:28 | Outpatient (CLI) | payer OTHER ==
[2018-05-24] MEDS ORDERED: NORMAL SALINE 250 ML IV PRN (09:36)
[2018-05-24 09:46] VITALS: BP 107/55
[2018-05-24] MEDS: MAGNESIUM SULFATE 1 GM/D5W 100 ML IV SCH ×2 (09:55→11:03)
== END 2018-05-24 12:37 | disposition home or self-care (01) ==
LOC: II 09:28 → 5TH 09:32 → II 12:37
PROVIDERS: ATTEND Internal Medicine
PROC: 3E043GC Introduction of Other Therapeutic Substance into Central Vein, Percutaneous Approach (ICD-10-PCS; principal; 2018-05-24)
DX: E83.49 Other disorders of magnesium metabolism (principal)
CPT/HCPCS: 96365; 96366; 96374; 96360; J3475; 96367

== ENCOUNTER → 2018-06-27 | Outpatient (CLI) | payer OTHER ==
--- NOTE | 2018-06-27 13:29 | RADIOLOGY REPORT (SQ) ---
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 Reconstructed coronal and sagittal MPR images reviewed. All images stored on PACS. All CT scanners at this facility use dose modulation, iterative reconstruction, and/or weight based d osing when appropriate to reduce radiation dose to as low as reasonably achievable (ALARA). [facility]: Dose Right [facility]: CareDose [facility]: Dose Right [facility]: Teradose 4D [facility]: Minimally invasive devices CONTRAST TYPE AND DOSE: 80 mL of IV Omnipaque 350- low osmolar. RENAL FUNCTION: Creatinine 0.54 RADIATION DOSE: 12.6 mGy . LIMITATIONS: None. FINDINGS: SKULL BASE: Intact. MAJOR SALIVARY GLANDS: No solid or cystic masses. No inflammatory changes. LYMPHADENOPATHY: There is a 1.3 x 1.1 cm submental lymph node on axial image 65 unchanged from prior studies. There is a 5 x 5 mm right floor of mouth lymph node on axial image 60, also unchanged from prior studies MUCOSAL MASSES OR ASYMMETRY: Post surgical/post therapeutic changes in the left floor of mouth, with surgical clips in the submandibular triangle and floor of mouth, and fatty atrophy of the leftward macias lf of the tongue. These findings are stable compared to previous exams. LARYNX/CORDS: No abnormal findings. VASCULAR STRUCTURES: Chronic stenosis right brachiocephalic vein axial images 94-104, along the cours e of a right-sided permanent central line with the tip in the superior vena cava. LUNG APICES: Clear. BONES: Intact. THYROID: Normal size. No masses. PARANASAL SINUSES: Clear. OTHER: No other significant finding. IMPRESSION: Post therapeutic changes in the left floor of mouth and submandibular triangle region, s table. TECHNICAL DOCUMENTATION: JOB ID: [id number] Quality ID # [id number]: Final reports with documentation of one or more dose reduction techniques (e.g., Au tomated exposure control, adjustment of the mA and/or kV according to patient size, use of iterative reconstruction technique) 2010 [employer]- All Rights Reserved Reading location - IP/workstation name: [email or web address]
--- NOTE | 2018-06-27 13:31 | RADIOLOGY REPORT (SQ) ---
EXAM DESCRIPTION: CT CHEST WITH COMPLETED DATE/TIME: 06/27/2018 9:42 am REASON FOR STUDY: BREAST CA C01 MALIGNANT NEOPLASM OF BASE OF TONGUE C50.212 MALIG NEOPLASM OF UPP ER-INNER QUADRANT OF LEFT FEMAL COMPARISON: CT soft tissue neck 04/18/2018, 09/14/2017 PET-CT 01/22/2018, [id number] TECHNIQUE: CT scan of the chest performed using helical scanning technique with dynamic intravenous contrast injection. Images reviewed with lung, soft tissue and bone windows. Reconstructed coronal and sagittal MPR and MIP images reviewed. All images stored on PACS. All CT scanners at this facility use dose modulation, iterative reconstruction, and/or weight based d osing when appropriate to reduce radiation dose to as low as reasonably achievable (ALARA). [facility]: Dose Right [facility]: CareDose [facility]: Dose Right [facility]: Teradose 4D [facility]: Every[employer] CONTRAST TYPE AND DOSE: contrast/concentration: Isovue 350.00 mg/ml; Total Contrast Delivered: 80.0 ml; Total Saline Delivered: 55.0 ml RENAL FUNCTION: Creatinine 0.54 RADIATION DOSE: 12.6 mGy . LIMITATIONS: None. FINDINGS: LUNGS AND PLEURA: Chronic appearing increased interstitial markings with honeycombing arou nd the periphery of both lung bases, stable. No acute infiltrates. No pulmonary nodules. No pleural effusion. No pneumothorax. Airways are pat ent. HILAR AND MEDIASTINAL STRUCTURES: No identified masses or abnormal nodes. HEART AND VASCULAR STRUCTURES: No aneurysm or dissection. No central pulmonary emboli. No pericardi al effusion. Stable mild to moderate cardiomegaly. Patient has a right-sided permanent central line , with chronic stenosis of the right brachiocephalic vein on axial images 99-104 unchanged from prior HARDWARE: Right permanent central line tip superior vena cava UPPER ABDOMEN: G-tube incompletely included in the field of view. THYROID AND OTHER SOFT TISSUES: No masses. No adenopathy. Left axillary surgical clips are present. No axillary adenopathy. Left primary breast tumor difficult to visualize by CT. BONES: No significant finding. OTHER: No other significant finding. IMPRESSION: No CT evidence of metastatic disease to the chest TECHNICAL DOCUMENTATION: JOB ID: [id number] Quality ID # [id number]: Final reports with documentation of one or more dose reduction techniques (e.g., Au tomated exposure control, adjustment of the mA and/or kV according to patient size, use of iterative reconstruction technique) 2010 [employer]- All Rights Reserved Reading location - IP/workstation name: [email or web address]
== END ==
LOC: RAD 09:00
PROVIDERS: ATTEND Physician Assistant Medical
DX: C01 Malignant neoplasm of base of tongue (principal); C50.212 Malignant neoplasm of upper-inner quadrant of left female breast
CPT/HCPCS: 70491; 71260

== ENCOUNTER → 2018-07-16 | Outpatient (CLI) | payer OTHER ==
--- NOTE | 2018-07-16 10:00 | RADIOLOGY REPORT (SQ) ---
EXAM DESCRIPTION: VENOUS UNILATERAL UPPER COMPLETED DATE/TIME: 07/16/2018 8:48 am REASON FOR STUDY: PAIN IN RIGHT ARM M79.601 PAIN IN RIGHT ARM R22.31 LOCALIZED SWELLING, MASS AND LUMP, RIGHT UPPER LIMB COMPARISON: 05/07/2017 TECHNIQUE: Dynamic and static rey scale and color images acquired of the right arm venous system. S elected spectral images acquired with additional compression and augmentation maneuvers. The contrala teral subclavian vein and internal jugular vein were also imaged. Images stored on PACS. LIMITATIONS: None. FINDINGS: INTERNAL JUGULAR VEIN: Normal phasicity, compression, augmentation. No visualized echogeni c material on rey scale. No defects on color images. Comparison opposite side normal. SUBCLAVIAN VEIN: Normal compression, augmentation. No visualized echogenic material on rey scale. No defects on color images. AXILLARY VEIN: Normal compression, augmentation. No visualized echogenic material on rey scale. No d efects on color images. BRACHIAL VEIN: Normal compression, augmentation. No visualized echogenic material on rey scale. No d efects on color images. BASILIC VEIN: Echogenic intraluminal material within the basilic vein compatible with clot. Decrease d compressibility and augmentation. CEPHALIC VEIN: Normal compression, augmentation. No visualized echogenic material on rey scale. No d efects on color images. OTHER: No other significant finding. CONTRALATERAL INTERNAL JUGULAR VEIN: Normal phasicity, compression and augmentation. No visualized echogenic material on rey scale. No de fects on color images. IMPRESSION: Clot within the basilic vein compatible with superficial venous thromboembolism, likely acute to subacute. No additional clot within the remaining visualized veins. TECHNICAL DOCUMENTATION: JOB ID: [id number] [employer]- All Rights Reserved Reading location - IP/workstation name: [email or web address]
== END ==
LOC: SP 07:54
PROVIDERS: ATTEND Internal Medicine
DX: I82.611 Acute embolism and thrombosis of superficial veins of right upper extremity (principal); M79.601 Pain in right arm; R22.31 Localized swelling, mass and lump, right upper limb; M79.89 Other specified soft tissue disorders
CPT/HCPCS: 93971

== ENCOUNTER 2018-07-19 11:52 | Inpatient (IN) | payer OTHER ==
[2018-07-19] MEDS ORDERED: NORMAL SALINE 1000 ML 1,000 ML IV ONE ×2 (12:28→19:33)
--- NOTE | 2018-07-19 12:29 | ER Document Report ---
ED Medical Screen (RME) - General Chief Complaint: Fever Stated Complaint: FEVER Time Seen by Provider: 07/19/18 12:17 Primary Care Provider: KRISTYN SMITH MD [Primary Care Provider] - Follow up as needed Mode of Arrival: Ambulatory Information source: Patient Notes: 58-year-old female with a history of tongue cancer and breast cancer presents emergency department with complaints of a temperature of 100.8 and associated chills that started this morning. Patient is [address] Means's patients. She is undergoing chemotherapy. Her last dose of chemotherapy was yesterday. She contacted Dr. Means's office and was told to go to the emergency department for evaluation. Patient denies any rhinorrhea, sore throat, cough, nausea, vomiting, diarrhea, dysuria, hematuria. I have greeted and performed a rapid initial assessment of this patient. A comprehensive ED assessment and evaluation of the patient, analysis of test results and completion of the medical decision making process will be conducted by additional ED providers. PHYSICAL EXAMINATION: GENERAL: ill appearing. HEAD: Atraumatic, normocephalic. EYES: Pupils equal round extraocular movements intact, conjunctiva are normal. ENT: Nares patent NECK: Normal range of motion LUNGS: No respiratory distress Musculoskeletal: Normal range of motion NEUROLOGICAL: Normal speech, normal gait. PSYCH: Normal mood, normal affect. SKIN: Warm, Dry, normal turgor, no rashes or lesions noted. TRAVEL OUTSIDE OF THE [place] IN LAST 30 DAYS: No - Related Data Allergies/Adverse Reactions: aspirin Allergy (Verified 07/19/18 11:53) Past Medical History - Social History Frequency of alcohol use: None Drug Abuse: None - Past Medical History Cardiac Medical History: Reports: Hx Hypertension Denies: Hx Coronary Artery Disease, Hx Heart Attack Pulmonary Medical History: Reports: Hx Asthma Denies: Hx Bronchitis, Hx COPD, Hx Pneumonia Neurological Medical History: Denies: Hx Cerebrovascular Accident, Hx Seizures Renal/ Medical History: Denies: Hx Peritoneal Dialysis Musculoskeltal Medical History: Reports Hx Arthritis Past Surgical History: Reports: Hx Abdominal Surgery - PEG tube, Hx Breast Surgery - lumpectomy, Hx Gynecologic Surgery - 1 fallopian tube removed, Hx Oral Surgery - throat surgery - Immunizations Hx Diphtheria, Pertussis, Tetanus Vaccination: No History of Influenza Vaccine for 03/2017 - 08/2017 Season: Refused Physical Exam - Vital signs Vitals: Temp Pulse Resp BP Pulse Ox 99.8 F 124 H 16 112/59 L 99 07/19/18 11:57 07/19/18 11:57 07/19/18 11:57 07/19/18 11:57 07/19/18 11:57 Course - Vital Signs Vital signs: Temp Pulse Resp BP Pulse Ox 99.8 F 124 H 16 112/59 L 99 07/19/18 11:57 07/19/18 11:57 07/19/18 11:57 07/19/18 11:57 07/19/18 11:57 Doctor's Discharge - Discharge Referrals: KRISTYN SMITH MD [Primary Care Provider] - Follow up as needed
[2018-07-19 13:57] LABS: APPEARANCE,URINE SLIGHTLY-CLOUDY; BILIRUBIN,URINE NEGATIVE (NEGATIVE); COLOR,URINE YELLOW; GLUCOSE, URINE NEGATIVE (NEGATIVE); KETONES,URINE NEGATIVE (NEGATIVE); LEUKOCYTE ESTERASE,URINE TRACE (NEGATIVE); NITRITE,URINE NEGATIVE (NEGATIVE); PROTEIN,URINE NEGATIVE (NEGATIVE); UROBILINOGEN,URINE NEGATIVE mg/dL (<2.0)
[2018-07-19 14:03] LABS: A TYPE INFLUENZA AG NEGATIVE (NEGATIVE); ALANINE AMINOTRANSFERASE 18 U/L (9-52); ALBUMIN 4.4 g/dL (3.5-5.0); ALKALINE PHOSPHATASE 130 U/L (38-126); ANION GAP 10 (5-19); ASPARTATE AMINO TRANSFERASE 31 U/L (14-36); B INFLUENZA AG NEGATIVE (NEGATIVE); BILIRUBIN,DIRECT 0.2 mg/dL (0.0-0.4); BILIRUBIN,TOTAL 0.5 mg/dL (0.2-1.3); BLOOD UREA NITROGEN 20 mg/dL (7-20); CALCIUM 9.3 mg/dL (8.4-10.2); CARBON DIOXIDE 25 mmol/L (22-30); CHLORIDE 107 mmol/L (98-107); GLUCOSE 101 mg/dL (75-110); HEMATOCRIT 28.7 % (36.0-47.0); HEMOGLOBIN 9.3 g/dL (12.0-15.5); MEAN CORPUSCULAR HEMOGLOBIN 32.8 pg (27.0-33.4); MEAN CORPUSCULAR HGB CONC 32.2 g/dL (32.0-36.0); MEAN CORPUSCULAR VOLUME 102 fl (80-97); PLATELET COUNT 143 10^3/uL (150-450); POTASSIUM 3.7 mmol/L (3.6-5.0); RED BLOOD COUNT 2.82 10^6/uL (3.72-5.28); RED CELL DISTRIBUTION WIDTH 19.5 % (11.5-14.0); SODIUM 142.2 mmol/L (137-145); TOTAL PROTEIN 7.8 g/dL (6.3-8.2); WHITE BLOOD COUNT 7.9 10^3/uL (4.0-10.5)
--- NOTE | 2018-07-19 14:22 | RADIOLOGY REPORT (SQ) ---
EXAM DESCRIPTION: CHEST SINGLE VIEW COMPLETED DATE/TIME: 07/19/2018 2:02 pm REASON FOR STUDY: fever, chemo patient COMPARISON: 07/12/2015. Chest CT 06/27/2018. NUMBER OF VIEWS: One view. TECHNIQUE: Single frontal radiographic image of the chest acquired. LIMITATIONS: None. FINDINGS: LUNGS AND PLEURA: Segmental airspace disease in the right lung, probably superior segment right lower lobe. MEDIASTINUM AND HEART: Stable heart size and mediastinal structures. SUPPORT DEVICES: Appropriate location without change. BONY STRUCTURES: No acute findings. HARDWARE: None. OTHER: No other significant finding. IMPRESSION: Right lower lobe pneumonia. Reading location - IP/workstation name: [email or web address]
[2018-07-19 14:33] LABS: ABSOLUTE LYMPHOCYTES# (MANUAL) 0.1 10^3/uL (0.5-4.7); ABSOLUTE MONOCYTES # (MANUAL) 0.1 10^3/uL (0.1-1.4); ABSOLUTE NEUTROPHILS# (MANUAL) 7.7 10^3/uL (1.7-8.2); BAND NEUTROPHILS % (MANUAL) 3 % (3-5); BASOPHILS % (MANUAL) 0 % (0-2); EOSINOPHILS % (MANUAL) 0 % (0-6); LYMPHOCYTES % (MANUAL) 1 % (13-45); MONOCYTES % (MANUAL) 1 % (3-13); SEGMENTED NEUTROPHILS % (MAN) 95 % (42-78); TOTAL CELLS COUNTED 100
[2018-07-19 14:36] LABS: ANISOCYTOSIS 2+; PLATELET COMMENT DECREASED; POLYCHROMASIA SLIGHT
--- NOTE | 2018-07-19 15:42 | ER Document Report ---
ED General - General Chief Complaint: Fever Stated Complaint: FEVER Time Seen by Provider: 07/19/18 12:17 Primary Care Provider: KRISTYN SMITH MD [Primary Care Provider] - Follow up as needed Mode of Arrival: Ambulatory Information source: Patient Notes: 58-year-old female with a history of tongue cancer and breast cancer presents emergency department with complaints of a temperature of 100.8 and associated chills that started this morning. Patient is [address] Means's patients. She is undergoing chemotherapy. Her last dose of chemotherapy was yesterday. She contacted Dr. Means's office and was told to go to the emergency department for evaluation. Patient denies any rhinorrhea, sore throat, cough, nausea, vomiting, diarrhea, dysuria, hematuria. TRAVEL OUTSIDE OF THE [place] IN LAST 30 DAYS: No - Related Data Allergies/Adverse Reactions: aspirin Allergy (Verified 07/19/18 11:53) Past Medical History - General Information source: Patient - Social History Smoking Status: Never Smoker Frequency of alcohol use: None Drug Abuse: None Patient has suicidal ideation: No Patient has homicidal ideation: No - Past Medical History Cardiac Medical History: Reports: Hx Hypertension Denies: Hx Coronary Artery Disease, Hx Heart Attack Pulmonary Medical History: Reports: Hx Asthma Denies: Hx Bronchitis, Hx COPD, Hx Pneumonia Neurological Medical History: Denies: Hx Cerebrovascular Accident, Hx Seizures Renal/ Medical History: Denies: Hx Peritoneal Dialysis Musculoskeletal Medical History: Reports Hx Arthritis Past Surgical History: Reports: Hx Abdominal Surgery - PEG tube, Hx Breast Surgery - lumpectomy, Hx Gynecologic Surgery - 1 fallopian tube removed, Hx Oral Surgery - throat surgery - Immunizations Hx Diphtheria, Pertussis, Tetanus Vaccination: No Physical Exam - Vital signs Vitals: Temp Pulse Resp BP Pulse Ox 99.8 F 124 H 16 112/59 L 99 07/19/18 11:57 07/19/18 11:57 07/19/18 11:57 07/19/18 11:57 07/19/18 11:57 Course - Vital Signs Vital signs: Temp Pulse Resp BP Pulse Ox 99.8 F 124 H 16 112/59 L 99 07/19/18 11:57 07/19/18 11:57 07/19/18 11:57 07/19/18 11:57 07/19/18 11:57 - Laboratory Result Diagrams: 07/19/18 13:20 07/19/18 13:20 Laboratory results interpreted by me: 07/19/18 07/19/18 07/19/18 13:20 13:20 13:20 RBC 2.82 L Hgb 9.3 L Hct 28.7 L MCV 102 H RDW 19.5 H Plt Count 143 L Seg Neuts % (Manual) 95 H Lymphocytes % (Manual) 1 L Monocytes % (Manual) 1 L Abs Lymphs (Manual) 0.1 L Alkaline Phosphatase 130 H Urine Blood MODERATE H Ur Leukocyte Esterase TRACE H Discharge - Discharge Clinical Impression: Healthcare-associated pneumonia, Tachycardia, Tongue cancer Breast cancer Qualifiers: Breast location: unspecified site of breast Estrogen receptor status: unspecif ied Patient sex: female Laterality: unspecified laterality Qualified Code(s): C50.919 - Malignant neoplasm of unspecified site of unspecified female breast Condition: Good Disposition: ADMITTED INPATIENT Admitting Provider: Hospitalist Unit Admitted: Telemetry Referrals: KRISTYN SMITH MD [Primary Care Provider] - Follow up as needed
[2018-07-19] MEDS ORDERED: NORMAL SALINE 500 ML IV ONE (15:58)
--- NOTE | 2018-07-19 16:00 | ER Document Report ---
ED General - General Chief Complaint: Fever Stated Complaint: FEVER Time Seen by Provider: 07/19/18 12:17 Mode of Arrival: Ambulatory Information source: Patient, Dr. Office, [facility] Records Notes: 58-year-old female with a history of tongue cancer and breast cancer presents emergency department with complaints of a temperature of 100.8 and associated chills that started this morning. Patient denies cough but admits to shortness of breath. Patient is one of Dr. Means's patients. She is undergoing chemotherapy. Her last chemotherapy was yesterday. She contacted Dr. Means's office and was told to go to the emergency department for evaluation. Patient denies any rhinorrhea, sore throat, cough, vomiting, diarrhea, dysuria, hematuria. Dr. Foote would like fluid administration, Levaquin. Patient also complaining of right aching breast pain. TRAVEL OUTSIDE OF THE [place] IN LAST 30 DAYS: No - HPI Onset: This morning Onset/Duration: Sudden Quality of pain: Achy Severity: Mild Associated symptoms: Body/muscle aches, Fever, Nausea, Shortness of breath. denies: Nonproductive cough, Productive cough, Vomiting Exacerbated by: Denies Relieved by: Denies Similar symptoms previously: No Recently seen / treated by doctor: Yes - Related Data Allergies/Adverse Reactions: aspirin Allergy (Verified 07/19/18 11:53) Past Medical History - General Information source: Patient - Social History Smoking Status: Never Smoker Frequency of alcohol use: None Drug Abuse: None Lives with: Family Family History: Reviewed & Not Pertinent Patient has suicidal ideation: No Patient has homicidal ideation: No - Past Medical History Cardiac Medical History: Reports: Hx Hypertension Denies: Hx Coronary Artery Disease, Hx Heart Attack Pulmonary Medical History: Reports: Hx Asthma Denies: Hx Bronchitis, Hx COPD, Hx Pneumonia Neurological Medical History: Denies: Hx Cerebrovascular Accident, Hx Seizures Renal/ Medical History: Denies: Hx Peritoneal Dialysis Musculoskeletal Medical History: Reports Hx Arthritis Past Surgical History: Reports: Hx Abdominal Surgery - PEG tube, Hx Breast Surgery - lumpectomy, Hx Gynecologic Surgery - 1 fallopian tube removed, Hx Oral Surgery - throat surgery - Immunizations Hx Diphtheria, Pertussis, Tetanus Vaccination: No Review of Systems - Review of Systems Notes: REVIEW OF SYSTEMS: CONSTITUTIONAL : Denies sweats. Denies recent illness. Denies weight loss, recent hospitalizations. EENT: Denies visual changes, eye pain. Denies sore throat, oral lesions, difficulty swallowing. CARDIOVASCULAR: Denies chest pain. Denies palpitations. Denies lower extremity edema. RESPIRATORY: Denies cough. Denies wheezing. GASTROINTESTINAL: Denies abdominal pain or distention. Denies nausea, vomiting, or diarrhea. Denies blood in vomitus, stools, or per rectum. Denies black, tarry stools. Denies constipation. GENITOURINARY: Denies difficulty urinating, painful urination, frequency, blood in urine, or vaginal discharge. MUSCULOSKELETAL: Denies back or neck pain or stiffness. Denies joint pain or swelling. SKIN: Denies rash, lesions or sores. HEMATOLOGIC : Denies easy bruising or bleeding. LYMPHATIC: Denies swollen glands. NEUROLOGICAL: Denies confusion or altered mental status. Denies loss of c onsciousness. Denies dizziness or lightheadedness. Denies headache. Denies weakness or paralysis. Denies problems difficulty with ambulation, slurred speech. Denies sensory loss, numbness, or tingling. Denies seizures. PSYCHIATRIC: Denies anxiety or stress. Denies depression, suicidal ideation, or homicidal ideation. Denies visual or auditory hallucinations. Physical Exam - Vital signs Vitals: Temp Pulse Resp BP Pulse Ox 99.8 F 124 H 16 112/59 L 99 07/19/18 11:57 07/19/18 11:57 07/19/18 11:57 07/19/18 11:57 07/19/18 11:57 Interpretation: Tachycardic - Notes Notes: PHYSICAL EXAMINATION: GENERAL: Well-appearing, well-nourished and in no acute distress. HEAD: Atraumatic, normocephalic. EYES: Pupils equal round and reactive to light, extraocular movements intact, conjunctiva are normal. ENT: Nares patent, oropharynx clear without exudates. Moist mucous membranes. NECK: Normal range of motion, supple without lymphadenopathy LUNGS: Breath sounds clear to auscultation bilaterally and equal. No wheezes rales or rhonchi. Port right upper chest HEART: Regular rate and rhythm without murmurs ABDOMEN: Soft, nontender, nondistended abdomen. No guarding, no rebound. No masses appreciated. Female : deferred Musculoskeletal: Normal range of motion, no pitting or edema. No cyanosis. NEUROLOGICAL: Cranial nerves grossly intact. Normal speech, normal gait. Normal sensory, motor exams PSYCH: Normal mood, normal affect. SKIN: Warm, Dry, normal turgor, no rashes or lesions noted. Course - Re-evaluation Re-evalutation: 07/19/18 17:08 Laboratory 07/19/18 07/19/18 07/19/18 13:20 13:20 13:20 WBC 7.9 RBC 2.82 L Hgb 9.3 L Hct 28.7 L MCV 102 H MCH 32.8 MCHC 32.2 RDW 19.5 H Plt Count 143 L Total Counted 100 Seg Neutrophils % Not Reportable Seg Neuts % (Manual) 95 H Band Neutrophils % 3 Lymphocytes % Not Reportable Lymphocytes % (Manual) 1 L Monocytes % Not Reportable Monocytes % (Manual) 1 L Eosinophils % Not Reportable Eosinophils % (Manual) 0 Basophils % Not Reportable Basophils % (Manual) 0 Absolute Neutrophils Not Reportable Abs Neuts (Manual) 7.7 Absolute Lymphocytes Not Reportable Abs Lymphs (Manual) 0.1 L Absolute Monocytes Not Reportable Abs Monocytes (Manual) 0.1 Absolute Eosinophils Not Reportable Absolute Eos (Manual) 0.0 Absolute Basophils Not Reportable Abs Basophils (Manual) 0.0 Platelet Comment DECREASED Polychromasia SLIGHT Anisocytosis 2+ Macrocytosis 1+ Sodium 142.2 Potassium 3.7 Chloride 107 Carbon Dioxide 25 Anion Gap 10 BUN 20 Creatinine 0.56 Est GFR ( Amer) > 60 Est GFR (Non-Af Amer) > 60 Glucose 101 Calcium 9.3 Magnesium 1.9 Total Bilirubin 0.5 Direct Bilirubin 0.2 Neonat Total Bilirubin Not Reportable Neonat Direct Bilirubin Not Reportable Neonat Indirect Bili Not Reportable AST 31 ALT 18 Alkaline Phosphatase 130 H Total Protein 7.8 Albumin 4.4 Urine Color Urine Appearance Urine pH Ur Specific [place] Urine Protein Urine Glucose (UA) Urine Ketones Urine Blood Urine Nitrite Urine Bilirubin Urine Urobilinogen Ur Leukocyte Esterase Urine WBC (Auto) Urine RBC (Auto) U Hyaline Cast (Auto) Urine Bacteria (Auto) Squamous Epi Cells Auto Urine Mucus (Auto) Urine Ascorbic Acid Influenza A (Rapid) NEGATIVE Influenza B (Rapid) NEGATIVE 07/19/18 13:20 WBC RBC Hgb Hct MCV MCH MCHC RDW Plt Count Total Counted Seg Neutrophils % Seg Neuts % (Manual) Band Neutrophils % Lymphocytes % Lymphocytes % (Manual) Monocytes % Monocytes % (Manual) Eosinophils % Eosinophils % (Manual) Basophils % Basophils % (Manual) Absolute Neutrophils Abs Neuts (Manual) Absolute Lymphocytes Abs Lymphs (Manual) Absolute Monocytes Abs Monocytes (Manual) Absolute Eosinophils Absolute Eos (Manual) Absolute Basophils Abs Basophils (Manual) Platelet Comment Polychromasia Anisocytosis Macrocytosis Sodium Potassium Chloride Carbon Dioxide Anion Gap BUN Creatinine Est GFR ( Amer) Est GFR (Non-Af Amer) Glucose Calcium Magnesium Total Bilirubin Direct Bilirubin Neonat Total Bilirubin Neonat Direct Bilirubin Neonat Indirect Bili AST ALT Alkaline Phosphatase Total Protein Albumin Urine Color YELLOW Urine Appearance SLIGHTLY-CLOUDY Urine pH 5.0 Ur Specific [place] 1.020 Urine Protein NEGATIVE Urine Glucose (UA) NEGATIVE Urine Ketones NEGATIVE Urine Blood MODERATE H Urine Nitrite NEGATIVE Urine Bilirubin NEGATIVE Urine Urobilinogen NEGATIVE Ur Leukocyte Esterase TRACE H Urine WBC (Auto) 16 Urine RBC (Auto) 4 U Hyaline Cast (Auto) 3 Urine Bacteria (Auto) TRACE Squamous Epi Cells Auto 1 Urine Mucus (Auto) MOD Urine Ascorbic Acid NEGATIVE Influenza A (Rapid) Influenza B (Rapid) Chest X-Ray 07/19/18 12:30 IMPRESSION: Right lower lobe pneumonia. Temp Pulse Resp BP Pulse Ox 99.8 F 124 H 16 112/59 L 99 07/19/18 11:57 07/19/18 11:57 07/19/18 11:57 07/19/18 11:57 07/19/18 11:57 58-year-old female with breast and tongue cancer presents from home with complaint of fever, shortness of breath that started this morning. Vital signs reviewed upon arrival and patient is afebrile but tachycardic. she is not hypoxic or tachypneic. Chest x-ray showed right lower lobe pneumonia. CBC does not show a leukocytosis and does show a stable anemia which is the patient's baseline. CMP unremarkable. Urinalysis shows blood. Influenza negative. I did speak to Dr. Don that states that because of the patient's ongoing chemotherapy she should be treated as healthcare associated pneumonia. Patient was given Levaquin, Zosyn. IV fluids were administered for patient's tachycardia. Patient has been accepted by Dr. Walton hospitalist. 07/19/18 17:11 - Vital Signs Vital signs: Temp Pulse Resp BP Pulse Ox 99.8 F 124 H 16 112/59 L 99 07/19/18 11:57 07/19/18 11:57 07/19/18 11:57 07/19/18 11:57 07/19/18 11:57 - Laboratory Result Diagrams: 07/19/18 13:20 07/19/18 13:20 Laboratory results interpreted by me: 07/19/18 07/19/18 07/19/18 13:20 13:20 13:20 RBC 2.82 L Hgb 9.3 L Hct 28.7 L MCV 102 H RDW 19.5 H Plt Count 143 L Seg Neuts % (Manual) 95 H Lymphocytes % (Manual) 1 L Monocytes % (Manual) 1 L Abs Lymphs (Manual) 0.1 L Alkaline Phosphatase 130 H Urine Blood MODERATE H Ur Leukocyte Esterase TRACE H - Diagnostic Test Radiology reviewed: Image reviewed, Reports reviewed Discharge - Discharge Clinical Impression: Healthcare-associated pneumonia, Tachycardia, Tongue cancer Breast cancer Qualifiers: Breast location: unspecified site of breast Estrogen receptor status: unspecifi ed Patient sex: female Laterality: unspecified laterality Qualified Code(s): C50.919 - Malignant neoplasm of unspecified site of unspecified female breast Condition: Good Disposition: ADMITTED INPATIENT Admitting Provider: Hospitalist Unit Admitted: Telemetry
[2018-07-19] MEDS ORDERED: PIPERACILLIN/TAZOBACTAM 3.375 GM VIAL IV ONE (16:20)
[2018-07-19] MEDS: LEVOFLOXACIN 500 MG/D5W RTU 500 MG/100 ML RTUPB IV SCH (16:24)
[2018-07-19] MEDS ORDERED: MAG HYDROX/AL HYDROX/SIMETH SUSP 30 ML UDCUP PO PRN (17:25)
[2018-07-19] MEDS ORDERED: ACETAMINOPHEN 325 MG TABLET PO PRN (17:25)
[2018-07-19] MEDS ORDERED: ONDANSETRON 4 MG TAB.RAPDIS PO PRN (17:25)
[2018-07-19] MEDS ORDERED: IPRATROPIUM/ALBUTEROL 0.5-2.5 MG/3 ML AMPUL NEB PRN (17:25)
--- NOTE | 2018-07-19 17:25 | PDOC H&P ---
History of Present Illness Admission Date/PCP: 07/19/18 16:50 KRISTYN SMITH MD History of Present Illness: ELIAZAR NEGRETE is a 58 year old female past medical history of breast cancer and lingual cancer diagnosed in 2016 is post left breast lumpectomy and tongue surgery (PEG tube placement )followed by chemoradiation and recurrent leg will cancer on chemoradiation cycle 5/[address] Smith, chemotherapy-induced peripheral neuropathy, right upper extremity DVT (on Xarelto) who was sent to ED by Dr. Smith for complaining of fever, shortness of breath. Denies any nausea, abdominal pain, diarrhea, constipation, dysuria, weight changes, numbness and tingling, weakness. In ED a chest x-ray showed right lower lobe pneumonia. Hospitalist was consulted for admission. Past Medical History Cardiac Medical History: Reports: Hypertension Denies: Coronary Artery Disease, Myocardial Infarction Pulmonary Medical History: Reports: Asthma Denies: Bronchitis, Chronic Obstructive Pulmonary Disease (COPD), Pneumonia Neurological Medical History: Denies: Seizures Musculoskeltal Medical History: Reports: Arthritis Hematology: Reports: Anemia, Bleeding Tendencies Social History Lives with: Family Smoking Status: Never Smoker Drugs: None Family History Family History: Reviewed & Not Pertinent Parental Family History Reviewed: Yes Children Family History Reviewed: Yes Sibling(s) Family History Reviewed.: Yes Medication/Allergy Home Medications: Acetaminophen [Tylenol] 325 mg PO Q6HP PRN 07/12/15 Oxycodone HCl/Acetaminophen [Percocet 5-325 mg Tablet] 1 - 2 tab PO ASDIR PRN #15 tablet 07/12/15 Hydrocodone Bit/Acetaminophen [Hydrocodon-Acetaminophen 5-325] 1 each PO ASDIR PRN 10/08/15 Ondansetron [Zuplenz] 8 mg PO ASDIR PRN 10/08/15 Promethazine HCl [Phenergan 25 mg Tablet] 25 - 50 mg PO ASDIR PRN 10/08/15 Oxycodone HCl/Acetaminophen [Percocet 5-325 mg Tablet] 1 - 2 tab PO ASDIR PRN #25 tablet 10/13/15 Oxycodone HCl/Acetaminophen [Percocet 5-325 mg Tablet] 1 tab PO Q4HP PRN #24 tablet 10/14/15 Allergies/Adverse Reactions: aspirin Allergy (Verified 07/19/18 11:53) Review of Systems Review of Systems: Per HPI Physical Exam Vital Signs: Temp Pulse Resp BP Pulse Ox 99.8 F 124 H 16 112/59 L 99 07/19/18 11:57 07/19/18 11:57 07/19/18 11:57 07/19/18 11:57 07/19/18 11:57 Intake & Output 07/18/18 07/19/18 07/20/18 06:59 06:59 06:59 Intake Total 1000 Balance 1000 Weight 60.7 kg General appearance: PRESENT: no acute distress, well-developed, well-nourished Head exam: PRESENT: atraumatic, normocephalic Respiratory exam: PRESENT: clear to auscultation michael, crackles - Right lower lobe. ABSENT: rales, rhonchi, wheezes Cardiovascular exam: PRESENT: RRR. ABSENT: diastolic murmur, rubs, systolic murmur GI/Abdominal exam: PRESENT: normal bowel sounds, soft, other - PEG tube in place. ABSENT: distended, guarding, mass, organolmegaly, rebound, tenderness Extremities exam: PRESENT: full ROM. ABSENT: calf tenderness, clubbing, pedal e ana Neurological exam: PRESENT: alert, awake, oriented to person, oriented to place, oriented to time, oriented to situation, CN II-XII grossly intact. ABSENT: motor sensory deficit Psychiatric exam: PRESENT: appropriate affect, normal mood. ABSENT: homicidal ideation, suicidal ideation Results Laboratory Results: 07/19/18 13:20 07/19/18 13:20 07/19/18 07/19/18 07/19/18 13:20 13:20 13:20 WBC 7.9 RBC 2.82 L Hgb 9.3 L Hct 28.7 L MCV 102 H MCH 32.8 MCHC 32.2 RDW 19.5 H Plt Count 143 L Seg Neutrophils % Not Reportable Lymphocytes % Not Reportable Monocytes % Not Reportable Eosinophils % Not Reportable Basophils % Not Reportable Absolute Neutrophils Not Reportable Absolute Lymphocytes Not Reportable Absolute Monocytes Not Reportable Absolute Eosinophils Not Reportable Absolute Basophils Not Reportable Sodium 142.2 Potassium 3.7 Chloride 107 Carbon Dioxide 25 Anion Gap 10 BUN 20 Creatinine 0.56 Est GFR ( Amer) > 60 Est GFR (Non-Af Amer) > 60 Glucose 101 Calcium 9.3 Magnesium 1.9 Total Bilirubin 0.5 AST 31 ALT 18 Alkaline Phosphatase 130 H Total Protein 7.8 Albumin 4.4 Urine Color YELLOW Urine Appearance SLIGHTLY-CLOUDY Urine pH 5.0 Ur Specific [place] 1.020 Urine Protein NEGATIVE Urine Glucose (UA) NEGATIVE Urine Ketones NEGATIVE Urine Blood MODERATE H Urine Nitrite NEGATIVE Ur Leukocyte Esterase TRACE H Urine WBC (Auto) 16 Urine RBC (Auto) 4 Impressions: Chest X-Ray 07/19/18 12:30 IMPRESSION: Right lower lobe pneumonia. Assessment & Plan - Diagnosis (1) Healthcare-associated pneumonia Is this a current diagnosis for this admission?: Yes Plan: Empiric IV antibiotics to be transitioned to p.o. upon symptomatic improvement. Blood, sputum culture. Follow-up cultures. (2) Deep venous thrombosis of right upper extremity Is this a current diagnosis for this admission?: No Plan: Restart Xarelto. Monitor for bleeding (3) Neuropathy associated with cancer Is this a current diagnosis for this admission?: No Plan: Start on gabapentin. (4) Breast cancer Qualifiers: Breast location: unspecified site of breast Estrogen receptor status: unspecified Patient sex: female Laterality: unspecified laterality Qualified Code(s): C50.919 - Malignant neoplasm of unspecified site of unspecified female breast Is this a current diagnosis for this admission?: No Plan: Followed by Dr. Smith as outpatient. (5) Tongue cancer Is this a current diagnosis for this admission?: No Plan: Recurrent. Second chemotherapy. Cycle 5/6. Followed by Dr. Smith as ou tpatient.
[2018-07-19] MEDS ORDERED: VANCOMYCIN HCL 0 MG in DEXTROSE 5%-WATER 250 ML IV NR (17:45)
[2018-07-19] MEDS: DEXTROSE 5%-1/4 NORMAL SALINE 1,000 ML IV PRN (18:11)
[2018-07-19] MEDS: OXYCODONE-ACETAMINOPHEN 5-325 MG TABLET PO PRN (18:16)
[2018-07-19] MEDS: VANCOMYCIN HCL 750 MG in DEXTROSE 5%-WATER 250 ML IV SCH (22:49)
[2018-07-19] MEDS: FAMOTIDINE 20 MG TABLET PO SCH (22:50)
[2018-07-20] MEDS: PIPERACILLIN SODIUM/TAZOBACTAM 4.5 GM in NORMAL SALINE 100 ML IV SCH ×3 (01:09→12:26)
[2018-07-20] MEDS: GUAIFENESIN SYRP 200 MG/10 ML UDC PO PRN (01:15)
[2018-07-20 07:11] LABS: HEMATOCRIT 22.6 % (36.0-47.0); MEAN CORPUSCULAR HEMOGLOBIN 33.2 pg (27.0-33.4); MEAN CORPUSCULAR HGB CONC 32.4 g/dL (32.0-36.0); MEAN CORPUSCULAR VOLUME 102 fl (80-97); PLATELET COUNT 104 10^3/uL (150-450); RED BLOOD COUNT 2.21 10^6/uL (3.72-5.28); RED CELL DISTRIBUTION WIDTH 19.5 % (11.5-14.0); WHITE BLOOD COUNT 5.5 10^3/uL (4.0-10.5)
[2018-07-20 07:39] LABS: ALANINE AMINOTRANSFERASE 24 U/L (9-52); ALBUMIN 2.8 g/dL (3.5-5.0); ALKALINE PHOSPHATASE 66 U/L (38-126); ANION GAP 5 (5-19); ASPARTATE AMINO TRANSFERASE 21 U/L (14-36); BILIRUBIN,DIRECT 0.1 mg/dL (0.0-0.4); BILIRUBIN,TOTAL 0.7 mg/dL (0.2-1.3); BLOOD UREA NITROGEN 9 mg/dL (7-20); CALCIUM 8.3 mg/dL (8.4-10.2); CARBON DIOXIDE 26 mmol/L (22-30); CHLORIDE 107 mmol/L (98-107); GLUCOSE 100 mg/dL (75-110); PHOSPHORUS 2.4 mg/dL (2.5-4.5); POTASSIUM 3.9 mmol/L (3.6-5.0); SODIUM 137.8 mmol/L (137-145); TOTAL PROTEIN 5.6 g/dL (6.3-8.2)
[2018-07-20 07:56] LABS: HEMOGLOBIN 7.3 g/dL (12.0-15.5)
[2018-07-20] MEDS: VANCOMYCIN HCL 750 MG in DEXTROSE 5%-WATER 250 ML IV SCH ×2 (07:58→17:20)
[2018-07-20] MEDS: OXYCODONE-ACETAMINOPHEN 5-325 MG TABLET PO PRN (07:58)
[2018-07-20 08:09] LABS: ABSOLUTE LYMPHOCYTES# (MANUAL) 0.9 10^3/uL (0.5-4.7); ABSOLUTE MONOCYTES # (MANUAL) 0.1 10^3/uL (0.1-1.4); ABSOLUTE NEUTROPHILS# (MANUAL) 4.5 10^3/uL (1.7-8.2); BASOPHILS % (MANUAL) 0 % (0-2); EOSINOPHILS % (MANUAL) 0 % (0-6); LYMPHOCYTES % (MANUAL) 16 % (13-45); MONOCYTES % (MANUAL) 2 % (3-13); SEGMENTED NEUTROPHILS % (MAN) 62 % (42-78); TOTAL CELLS COUNTED 100
[2018-07-20 08:11] LABS: ANISOCYTOSIS 2+; OVALOCYTES SLIGHT; PLATELET COMMENT DECREASED; POIKILOCYTOSIS 1+; TEAR DROP CELLS SLIGHT; TOXIC GRANULATION SLIGHT; TOXIC VACUOLATION PRESENT
[2018-07-20 08:12] LABS: BAND NEUTROPHILS % (MANUAL) 20 % (3-5)
--- NOTE | 2018-07-20 12:04 | PDOC CONSULTATION ---
Consultation Consult Date: 07/20/18 Consult reason:: Hematology/Oncology consultation was requested for patient currently on chemotherapy for throat cancer admitted with pneumonia. History of Present Illness Admission Date/PCP: 07/19/18 16:50 KRISTYN SMITH MD History of Present Illness: ELIAZAR NEGRETE is a 58 year old female past medical history of breast cancer and lingual cancer diagnosed in 2016 is post left breast lumpectomy and tongue surgery (PEG tube placement )followed by chemoradiation and recurrent throat cancer on chemotherapy cycle 5/[address] Smith, chemotherapy-induced peripheral neuropathy, right upper extremity DVT (on Xarelto) who was sent to ED by Dr. Smith for complaining of fever, shortness of breath. Patient states that she had increased difficulty breathing but currently is feeling better. She is hungry, because her tube feedings have not been restarted since she came to the hospital yesterday. Otherwise, no other complaints this morning. She was started on vancomycin and zosyn and has been afebrile since that time. Past Medical History Cardiac Medical History: Reports: Hypertension Denies: Coronary Artery Disease, Myocardial Infarction Pulmonary Medical History: Reports: Asthma Denies: Bronchitis, Chronic Obstructive Pulmonary Disease (COPD), Pneumonia Neurological Medical History: Denies: Seizures Musculoskeltal Medical History: Reports: Arthritis Hematology: Reports: Anemia, Bleeding Tendencies Social History Lives with: Family Smoking Status: Never Smoker Frequency of Alcohol Use: None Hx Recreational Drug Use: No Drugs: None Hx Prescription Drug Abuse: No Family History Family History: Reviewed & Not Pertinent Parental Family History Reviewed: Yes Children Family History Reviewed: No Sibling(s) Family History Reviewed.: No Medication/Allergy Home Medications: Fentanyl [Duragesic 25 mcg/hr Transdermal Patch] 25 mcg TD Q3D 07/19/18 Hydrocodone Bit/Acetaminophen [Hydrocodone-Acetaminophen Soln] 15 ml PO Q6HP PRN 07/19/18 Lorazepam [Ativan 0.5 mg Tablet] 0.25 mg PO DAILY 07/19/18 Ondansetron HCl [Zofran 4 mg/5 ml Oral Soln] 5 ml PO DAILY 07/19/18 Scopolamine 1 patch TD Q3D 07/19/18 Allergies/Adverse Reactions: aspirin Allergy (Verified 07/19/18 11:53) Review of Systems Constitutional: PRESENT: fever(s). ABSENT: headache(s) Eyes: ABSENT: visual disturbances Ears: ABSENT: hearing changes Nose, Mouth, and Throat: PRESENT: sore throat Cardiovascular: ABSENT: chest pain Respiratory: PRESENT: cough, dyspnea Gastrointestinal: ABSENT: constipation, nausea Genitourinary: ABSENT: dysuria Musculoskeletal: ABSENT: muscle weakness Integumentary: ABSENT: rash Neurological: ABSENT: weakness Hematologic/Lymphatic: ABSENT: easy bleeding Physical Exam Vital Signs: Temp Pulse Resp BP Pulse Ox 98.4 F 95 16 92/52 L 98 07/20/18 08:35 07/20/18 08:35 07/20/18 08:35 07/20/18 08:35 07/20/18 08:35 Intake & Output 07/19/18 07/20/18 07/21/18 06:59 06:59 06:59 Intake Total 1950 Balance 1950 Weight 60.7 kg General appearance: PRESENT: well-developed, well-nourished Exam: 58 year old female. She has garbled speech due to the swelling in her throat, but she is able to cough and swallow without difficulty. Head exam: PRESENT: normocephalic Mouth exam: PRESENT: tongue midline, other - Unable to fully asses. Neck exam: ABSENT: tenderness Respiratory exam: PRESENT: decreased breath sounds, unlabored Cardiovascular exam: PRESENT: RRR GI/Abdominal exam: PRESENT: soft, other - G-tube in place. ABSENT: tenderness Extremities exam: ABSENT: pedal edema Musculoskeletal exam: PRESENT: normal inspection Neurological exam: PRESENT: alert, awake Psychiatric exam: PRESENT: appropriate affect Skin exam: PRESENT: normal color Results Laboratory Results: 07/20/18 06:40 07/20/18 06:40 07/19/18 07/19/18 07/19/18 13:20 13:20 13:20 WBC 7.9 RBC 2.82 L Hgb 9.3 L Hct 28.7 L MCV 102 H MCH 32.8 MCHC 32.2 RDW 19.5 H Plt Count 143 L Seg Neutrophils % Not Reportable Lymphocytes % Not Reportable Monocytes % Not Reportable Eosinophils % Not Reportable Basophils % Not Reportable Absolute Neutrophils Not Reportable Absolute Lymphocytes Not Reportable Absolute Monocytes Not Reportable Absolute Eosinophils Not Reportable Absolute Basophils Not Reportable Sodium 142.2 Potassium 3.7 Chloride 107 Carbon Dioxide 25 Anion Gap 10 BUN 20 Creatinine 0.56 Est GFR ( Amer) > 60 Est GFR (Non-Af Amer) > 60 Glucose 101 Calcium 9.3 Phosphorus Magnesium 1.9 Total Bilirubin 0.5 AST 31 ALT 18 Alkaline Phosphatase 130 H Total Protein 7.8 Albumin 4.4 Urine Color YELLOW Urine Appearance SLIGHTLY-CLOUDY Urine pH 5.0 Ur Specific [place] 1.020 Urine Protein NEGATIVE Urine Glucose (UA) NEGATIVE Urine Ketones NEGATIVE Urine Blood MODERATE H Urine Nitrite NEGATIVE Ur Leukocyte Esterase TRACE H Urine WBC (Auto) 16 Urine RBC (Auto) 4 07/20/18 07/20/18 06:40 06:40 WBC 5.5 RBC 2.21 L Hgb 7.3 L Hct 22.6 L MCV 102 H MCH 33.2 MCHC 32.4 RDW 19.5 H Plt Count 104 L Seg Neutrophils % Not Reportable Lymphocytes % Not Reportable Monocytes % Not Reportable Eosinophils % Not Reportable Basophils % Not Reportable Absolute Neutrophils Not Reportable Absolute Lymphocytes Not Reportable Absolute Monocytes Not Reportable Absolute Eosinophils Not Reportable Absolute Basophils Not Reportable Sodium 137.8 Potassium 3.9 Chloride 107 Carbon Dioxide 26 Anion Gap 5 BUN 9 Creatinine 0.49 L Est GFR ( Amer) > 60 Est GFR (Non-Af Amer) > 60 Glucose 100 Calcium 8.3 L Phosphorus 2.4 L Magnesium Total Bilirubin 0.7 AST 21 ALT 24 Alkaline Phosphatase 66 Total Protein 5.6 L Albumin 2.8 L Urine Color Urine Appearance Urine pH Ur Specific [place] Urine Protein Urine Glucose (UA) Urine Ketones Urine Blood Urine Nitrite Ur Leukocyte Esterase Urine WBC (Auto) Urine RBC (Auto) Impressions: Chest X-Ray 07/19/18 12:30 IMPRESSION: Right lower lobe pneumonia. Assessment & Plan - Diagnosis (1) Head and neck cancer Is this a current diagnosis for this admission?: Yes Plan: Currently undergoing chemotherapy for this with Dr. Smith. Treatment will be placed on hold during this admission. (2) Healthcare-associated pneumonia Is this a current diagnosis for this admission?: Yes Plan: Currently on Vanc and Zosyn. She is not neutropenic and so should NOT be treated as immunocompromised. Blood cultures x 2 growing G+cocci in chains. Would consider stopping vanc, but still awaiting cultures. - Plan Summary Plan Summary: We discussed her tube feedings. Apparently the type that she is using is not available here in the hospital. Although an alternative has veronica found and offered, patient would prefer to bring in her own supply and will do this. Dr. Smith to return on Sunday and I am available for any concerns until then.
[2018-07-20] MEDS: LEVOFLOXACIN 500 MG/D5W RTU 500 MG/100 ML RTUPB IV SCH (12:26)
[2018-07-20] MEDS: DEXTROSE 5%-1/4 NORMAL SALINE 1,000 ML IV PRN (12:28)
[2018-07-20] MEDS: FAMOTIDINE INJ/PF 20 MG/2 ML SDV IV SCH ×2 (12:30→23:00)
[2018-07-20] MEDS ORDERED: ONDANSETRON HCL INJ/PF 4 MG/2 ML SDV ONE (12:41)
--- NOTE | 2018-07-20 13:40 | PDOC PROGRESS REPORT ---
Subjective Progress Note for:: 07/20/18 Subjective:: ELIAZAR NEGRETE is a 58 year old female past medical history of breast cancer and lingual cancer diagnosed in 2016 is post left breast lumpectomy and tongue surgery (PEG tube placement )followed by chemoradiation and recurrent leg will cancer on chemoradiation cycle 5/[address] Calle, chemotherapy-induced peripheral neuropathy, right upper extremity DVT (on Xarelto) who was sent to ED by Dr. Calle for complaining of fever, shortness of breath. No acute events overnight, denies any nausea, , cp, sob, abdominal pain, diarrhea, constipation, dysuria, weight changes, numbness and tingling, weakness. Reason For Visit: PNEUMONIA Physical Exam Vital Signs: Temp Pulse Resp BP Pulse Ox 98.2 F 95 15 96/50 L 94 07/20/18 12:00 07/20/18 12:00 07/20/18 12:00 07/20/18 12:00 07/20/18 12:00 Intake & Output 07/19/18 07/20/18 07/21/18 06:59 06:59 06:59 Intake Total 2950 100 Balance 2950 100 Weight 60.7 kg General appearance: PRESENT: no acute distress, well-developed, well-nourished Head exam: PRESENT: atraumatic, normocephalic Respiratory exam: PRESENT: clear to auscultation michael, crackles - RLL. ABSENT: rales, rhonchi, wheezes Cardiovascular exam: PRESENT: RRR. ABSENT: diastolic murmur, rubs, systolic murmur GI/Abdominal exam: PRESENT: normal bowel sounds, soft. ABSENT: distended, guarding, mass, organolmegaly, rebound, tenderness Extremities exam: PRESENT: full ROM. ABSENT: calf tenderness, clubbing, pedal edema Neurological exam: PRESENT: alert, awake, oriented to person, oriented to place, oriented to time, oriented to situation, CN II-XII grossly intact. ABSENT: motor sensory deficit Results Laboratory Results: 07/20/18 06:40 07/20/18 06:40 07/19/18 07/19/18 07/19/18 13:20 13:20 13:20 WBC 7.9 RBC 2.82 L Hgb 9.3 L Hct 28.7 L MCV 102 H MCH 32.8 MCHC 32.2 RDW 19.5 H Plt Count 143 L Seg Neutrophils % Not Reportable Lymphocytes % Not Reportable Monocytes % Not Reportable Eosinophils % Not Reportable Basophils % Not Reportable Absolute Neutrophils Not Reportable Absolute Lymphocytes Not Reportable Absolute Monocytes Not Reportable Absolute Eosinophils Not Reportable Absolute Basophils Not Reportable Sodium 142.2 Potassium 3.7 Chloride 107 Carbon Dioxide 25 Anion Gap 10 BUN 20 Creatinine 0.56 Est GFR ( Amer) > 60 Est GFR (Non-Af Amer) > 60 Glucose 101 Calcium 9.3 Phosphorus Magnesium 1.9 Total Bilirubin 0.5 AST 31 ALT 18 Alkaline Phosphatase 130 H Total Protein 7.8 Albumin 4.4 Urine Color YELLOW Urine Appearance SLIGHTLY-CLOUDY Urine pH 5.0 Ur Specific [place] 1.020 Urine Protein NEGATIVE Urine Glucose (UA) NEGATIVE Urine Ketones NEGATIVE Urine Blood MODERATE H Urine Nitrite NEGATIVE Ur Leukocyte Esterase TRACE H Urine WBC (Auto) 16 Urine RBC (Auto) 4 07/20/18 07/20/18 06:40 06:40 WBC 5.5 RBC 2.21 L Hgb 7.3 L Hct 22.6 L MCV 102 H MCH 33.2 MCHC 32.4 RDW 19.5 H Plt Count 104 L Seg Neutrophils % Not Reportable Lymphocytes % Not Reportable Monocytes % Not Reportable Eosinophils % Not Reportable Basophils % Not Reportable Absolute Neutrophils Not Reportable Absolute Lymphocytes Not Reportable Absolute Monocytes Not Reportable Absolute Eosinophils Not Reportable Absolute Basophils Not Reportable Sodium 137.8 Potassium 3.9 Chloride 107 Carbon Dioxide 26 Anion Gap 5 BUN 9 Creatinine 0.49 L Est GFR ( Amer) > 60 Est GFR (Non-Af Amer) > 60 Glucose 100 Calcium 8.3 L Phosphorus 2.4 L Magnesium Total Bilirubin 0.7 AST 21 ALT 24 Alkaline Phosphatase 66 Total Protein 5.6 L Albumin 2.8 L Urine Color Urine Appearance Urine pH Ur Specific [place] Urine Protein Urine Glucose (UA) Urine Ketones Urine Blood Urine Nitrite Ur Leukocyte Esterase Urine WBC (Auto) Urine RBC (Auto) Impressions: Chest X-Ray 07/19/18 12:30 IMPRESSION: Right lower lobe pneumonia. Assessment & Plan - Diagnosis (1) Healthcare-associated pneumonia Is this a current diagnosis for this admission?: Yes Plan: Day 2 of Vanco/Cefepime. Blood Cultures positive for 2/2, positive cocci in chains. Pending susceptibility. Follow-up cultures. (2) Deep venous thrombosis of right upper extremity Is this a current diagnosis for this admission?: No Plan: Restart Xarelto. Monitor for bleeding (3) Neuropathy associated with cancer Is this a current diagnosis for this admission?: No Plan: Start on gabapentin. (4) Breast cancer Qualifiers: Breast location: unspecified site of breast Estrogen receptor status: unspecified Patient sex: female Laterality: unspecified laterality Qualified Code(s): C50.919 - Malignant neoplasm of unspecified site of unspecified female breast Is this a current diagnosis for this admission?: No Plan: Followed by Dr. Calle as outpatient. (5) Tongue cancer Is this a current diagnosis for this admission?: No Plan: Recurrent. Second chemotherapy. Cycle 5/6. Followed by Dr. Calle as outpatient. (6) Anemia Is this a current diagnosis for this admission?: Yes Plan: We will do iron workup. Likely due to chronic disease/chemotherapy. Monitor H&H. Supportive transfusions. Denies any external source of bleeding. (7) Gram-positive cocci bacteremia Is this a current diagnosis for this admission?: Yes Plan: Continue vancomycin. Pending susceptibility. Follow-up cultures.
[2018-07-20 15:37] LABS: IRON(TIBC) < 10.1 ug/dL (37-170)
[2018-07-20] MEDS: ONDANSETRON HCL INJ/PF 4 MG/2 ML SDV IV PRN ×2 (17:26→23:01)
[2018-07-20] MEDS: FAMOTIDINE 20 MG TABLET PO SCH (18:03)
--- NOTE | 2018-07-20 20:12 | EKG REPORT ---
SEVERITY:- BORDERLINE ECG - SINUS TACHYCARDIA BORDERLINE T WAVE ABNORMALITIES : Confirmed by: Juan Ramon Ocampo 20-Jul-2018 20:12:31
[2018-07-20] MEDS: CEFEPIME 1 GM/D5W RTU 1 GM/50 ML RTUPB IV SCH (23:01)
[2018-07-20 23:47] LABS: VANCOMYCIN,TROUGH 10.2 ug/mL (5.0-20.0)
[2018-07-21] MEDS: VANCOMYCIN HCL 750 MG in DEXTROSE 5%-WATER 250 ML IV SCH ×2 (00:21→05:54)
[2018-07-21] MEDS: DEXTROSE 5%-1/4 NORMAL SALINE 1,000 ML IV PRN (05:54)
[2018-07-21] MEDS: ONDANSETRON HCL INJ/PF 4 MG/2 ML SDV IV PRN ×2 (06:05→13:08)
[2018-07-21 08:49] LABS: HEMATOCRIT 22.7 % (36.0-47.0); HEMOGLOBIN 7.6 g/dL (12.0-15.5); MEAN CORPUSCULAR HEMOGLOBIN 33.6 pg (27.0-33.4); MEAN CORPUSCULAR HGB CONC 33.2 g/dL (32.0-36.0); MEAN CORPUSCULAR VOLUME 101 fl (80-97); PLATELET COUNT 101 10^3/uL (150-450); RED BLOOD COUNT 2.25 10^6/uL (3.72-5.28); RED CELL DISTRIBUTION WIDTH 18.6 % (11.5-14.0); WHITE BLOOD COUNT 6.4 10^3/uL (4.0-10.5)
[2018-07-21 09:03] LABS: ALANINE AMINOTRANSFERASE 13 U/L (9-52); ALKALINE PHOSPHATASE 65 U/L (38-126); ANION GAP 6 (5-19); ASPARTATE AMINO TRANSFERASE 19 U/L (14-36); BILIRUBIN,DIRECT 0.2 mg/dL (0.0-0.4); BILIRUBIN,TOTAL 0.6 mg/dL (0.2-1.3); BLOOD UREA NITROGEN 5 mg/dL (7-20); CALCIUM 8.4 mg/dL (8.4-10.2); CARBON DIOXIDE 28 mmol/L (22-30); CHLORIDE 104 mmol/L (98-107); GLUCOSE 105 mg/dL (75-110); POTASSIUM 3.5 mmol/L (3.6-5.0); SODIUM 137.6 mmol/L (137-145); TOTAL PROTEIN 5.9 g/dL (6.3-8.2)
[2018-07-21 09:42] LABS: ABSOLUTE LYMPHOCYTES# (MANUAL) 0.6 10^3/uL (0.5-4.7); ABSOLUTE MONOCYTES # (MANUAL) 0.3 10^3/uL (0.1-1.4); ABSOLUTE NEUTROPHILS# (MANUAL) 5.5 10^3/uL (1.7-8.2); BAND NEUTROPHILS % (MANUAL) 19 % (3-5); BASOPHILS % (MANUAL) 0 % (0-2); EOSINOPHILS % (MANUAL) 0 % (0-6); LYMPHOCYTES % (MANUAL) 10 % (13-45); MONOCYTES % (MANUAL) 4 % (3-13); SEGMENTED NEUTROPHILS % (MAN) 67 % (42-78); TOTAL CELLS COUNTED 100
[2018-07-21 09:43] LABS: ANISOCYTOSIS 2+; PLATELET COMMENT DECREASED; POIKILOCYTOSIS SLIGHT; TEAR DROP CELLS SLIGHT
[2018-07-21] MEDS ORDERED: VANCOMYCIN HCL 1,000 MG in DEXTROSE 5%-WATER 250 ML IV SCH (10:00)
[2018-07-21] MEDS: CEFEPIME 1 GM/D5W RTU 1 GM/50 ML RTUPB IV SCH ×2 (10:06→22:28)
[2018-07-21] MEDS: FAMOTIDINE INJ/PF 20 MG/2 ML SDV IV SCH ×2 (10:06→22:28)
[2018-07-21] MEDS: OXYCODONE-ACETAMINOPHEN 5-325 MG TABLET PO PRN (13:08)
--- NOTE | 2018-07-21 13:47 | PDOC PROGRESS REPORT ---
Subjective Progress Note for:: 07/21/18 Subjective:: ELIAZAR NEGRETE is a 58 year old female past medical history of breast cancer and lingual cancer diagnosed in 2016 is post left breast lumpectomy and tongue surgery (PEG tube placement )followed by chemoradiation and recurrent leg will cancer on chemoradiation cycle 5/[address] Calle, chemotherapy-induced peripheral neuropathy, right upper extremity DVT (on Xarelto) who was sent to ED by Dr. Calle for complaining of fever, shortness of breath. No acute events overnight. Patient denies any fever, chills, nausea, vomiting, diarrhea, constipation or any urinary symptoms. Reason For Visit: PNEUMONIA Physical Exam Vital Signs: Temp Pulse Resp BP Pulse Ox 98.8 F 102 H 16 106/59 L 100 07/21/18 07:54 07/21/18 07:54 07/21/18 07:54 07/21/18 07:54 07/21/18 07:54 Intake & Output 07/20/18 07/21/18 07/22/18 06:59 06:59 06:59 Intake Total 2950 1900 550 Balance 2950 1900 550 Weight 60.7 kg 67.5 kg General appearance: PRESENT: no acute distress, well-developed, well-nourished Head exam: PRESENT: atraumatic, normocephalic Respiratory exam: PRESENT: clear to auscultation michael, crackles - Right lower lobe. ABSENT: rales, rhonchi, wheezes GI/Abdominal exam: PRESENT: normal bowel sounds, soft, other - PEG tube in place.. ABSENT: distended, guarding, mass, organolmegaly, rebound, tenderness Extremities exam: PRESENT: full ROM. ABSENT: calf tenderness, clubbing, pedal edema Neurological exam: PRESENT: alert, awake, oriented to person, oriented to place, oriented to time, oriented to situation, CN II-XII grossly intact. ABSENT: motor sensory deficit Results Laboratory Results: 07/21/18 08:05 07/21/18 08:05 07/20/18 07/20/18 07/21/18 06:40 06:40 08:05 WBC 6.4 RBC 2.25 L Hgb 7.6 L Hct 22.7 L MCV 101 H MCH 33.6 H MCHC 33.2 RDW 18.6 H Plt Count 101 L Seg Neutrophils % Not Reportable Lymphocytes % Not Reportable Monocytes % Not Reportable Eosinophils % Not Reportable Basophils % Not Reportable Absolute Neutrophils Not Reportable Absolute Lymphocytes Not Reportable Absolute Monocytes Not Reportable Absolute Eosinophils Not Reportable Absolute Basophils Not Reportable Retic Count (auto) 1.80 Absolute Retic 0.040 Sodium Potassium Chloride Carbon Dioxide Anion Gap BUN Creatinine Est GFR ( Amer) Est GFR (Non-Af Amer) Glucose Calcium Iron < 10.1 L TIBC 271 % Saturation UNABLE TO CALCULATE Ferritin 129.00 Total Bilirubin AST ALT Alkaline Phosphatase Total Protein Albumin Vitamin B12 > 1000.0 H Folate 15.40 07/21/18 08:05 WBC RBC Hgb Hct MCV MCH MCHC RDW Plt Count Seg Neutrophils % Lymphocytes % Monocytes % Eosinophils % Basophils % Absolute Neutrophils Absolute Lymphocytes Absolute Monocytes Absolute Eosinophils Absolute Basophils Retic Count (auto) Absolute Retic Sodium 137.6 Potassium 3.5 L Chloride 104 Carbon Dioxide 28 Anion Gap 6 BUN 5 L Creatinine 0.41 L Est GFR ( Amer) > 60 Est GFR (Non-Af Amer) > 60 Glucose 105 Calcium 8.4 Iron TIBC % Saturation Ferritin Total Bilirubin 0.6 AST 19 ALT 13 Alkaline Phosphatase 65 Total Protein 5.9 L Albumin 3.0 L Vitamin B12 Folate 07/19/18 14:24 Blood Blood Culture - Final Streptococcus Pneumoniae 07/19/18 13:20 Blood Blood Culture - Final Streptococcus Pneumoniae Impressions: Chest X-Ray 07/19/18 12:30 IMPRESSION: Right lower lobe pneumonia. Assessment & Plan - Diagnosis (1) Healthcare-associated pneumonia Is this a current diagnosis for this admission?: Yes Plan: Day 3 cefepime. Day 3 of vancomycin. Blood cultures positive for 2/2 strep pneumo. Sputum cultures no growth. DC vancomycin. Continue cefepime. (2) Gram-positive cocci bacteremia Is this a current diagnosis for this admission?: Yes Plan: Strep pneumo. Day 3 cefepime. DC vancomycin. Repeat blood cultures. Follow-up cultures. (3) Deep venous thrombosis of right upper extremity Is this a current diagnosis for this admission?: No Plan: Restart Xarelto. Monitor for bleeding (4) Neuropathy associated with cancer Is this a current diagnosis for this admission?: No Plan: Start on gabapentin. (5) Breast cancer Qualifiers: Breast location: unspecified site of breast Estrogen receptor status: unspecified Patient sex: female Laterality: unspecified laterality Qualified Code(s): C50.919 - Malignant neoplasm of unspecified site of unspecified female breast Is this a current diagnosis for this admission?: No Plan: Followed by Dr. Calle as outpatient. (6) Tongue cancer Is this a current diagnosis for this admission?: No Plan: Recurrent. Second chemotherapy. Cycle 5/6. Followed by Dr. Calle as outpatient. (7) Anemia Is this a current diagnosis for this admission?: Yes Plan: Serum iron less than 10.1. RBC 271. Ferritin 129. Denies any external source of bleeding. Pending stool guaiac. Start on iron sulfate. Daily H&H. Transfuse if less than 7 symptomatic or actively bleeding. (8) Thrombocytopenia Is this a current diagnosis for this admission?: No Plan: Chronic. Stable. Due to complications of chemotherapy. Monitor for bleeding, supportive transfusions.
[2018-07-21] MEDS: GUAIFENESIN SYRP 200 MG/10 ML UDC PO PRN (19:53)
[2018-07-22] MEDS: DEXTROSE 5%-1/4 NORMAL SALINE 1,000 ML IV PRN ×2 (00:59→13:51)
[2018-07-22] MEDS: ONDANSETRON HCL INJ/PF 4 MG/2 ML SDV IV PRN ×2 (06:34→16:48)
[2018-07-22 06:51] LABS: ABSOLUTE LYMPHOCYTES (AUTO) 0.5 10^3/uL (0.5-4.7); ABSOLUTE MONOCYTES (AUTO) 0.3 10^3/uL (0.1-1.4); ABSOLUTE NEUT (AUTO) 5.2 10^3/uL (1.7-8.2); BASOPHILS % (AUTO) 0.4 % (0-2); EOSINOPHILS % (AUTO) 0.1 % (0-6); HEMATOCRIT 24.1 % (36.0-47.0); MEAN CORPUSCULAR HEMOGLOBIN 33.9 pg (27.0-33.4); MEAN CORPUSCULAR HGB CONC 33.4 g/dL (32.0-36.0); MEAN CORPUSCULAR VOLUME 102 fl (80-97); MONOCYTES % (AUTO) 5.5 % (3-13); PLATELET COUNT 134 10^3/uL (150-450); RED BLOOD COUNT 2.37 10^6/uL (3.72-5.28); RED CELL DISTRIBUTION WIDTH 18.6 % (11.5-14.0); TOTAL CELLS COUNTED % (AUTO) 100 %; WHITE BLOOD COUNT 6.1 10^3/uL (4.0-10.5)
[2018-07-22 07:09] LABS: ALANINE AMINOTRANSFERASE 24 U/L (9-52); ALBUMIN 3.5 g/dL (3.5-5.0); ALKALINE PHOSPHATASE 90 U/L (38-126); ANION GAP 7 (5-19); ASPARTATE AMINO TRANSFERASE 26 U/L (14-36); BILIRUBIN,DIRECT 0.1 mg/dL (0.0-0.4); BILIRUBIN,TOTAL 0.6 mg/dL (0.2-1.3); BLOOD UREA NITROGEN 5 mg/dL (7-20); CALCIUM 8.7 mg/dL (8.4-10.2); CARBON DIOXIDE 29 mmol/L (22-30); CHLORIDE 105 mmol/L (98-107); GLUCOSE 113 mg/dL (75-110); POTASSIUM 3.6 mmol/L (3.6-5.0); SODIUM 140.6 mmol/L (137-145); TOTAL PROTEIN 6.6 g/dL (6.3-8.2)
--- NOTE | 2018-07-22 08:49 | PDOC PROGRESS REPORT ---
Subjective Progress Note for:: 07/22/18 Subjective:: No acute events overnight, patient has been doing a little bit better, nauseous this morning Reason For Visit: PNEUMONIA Physical Exam Vital Signs: Temp Pulse Resp BP Pulse Ox 97.4 F 75 16 107/64 98 07/22/18 08:00 07/22/18 08:00 07/22/18 08:00 07/22/18 08:00 07/22/18 08:00 Intake & Output 07/21/18 07/22/18 07/23/18 06:59 06:59 06:59 Intake Total 1899 2099 Balance 1899 2099 Weight 67.5 kg 62.5 kg General appearance: PRESENT: no acute distress, well-developed, well-nourished Head exam: PRESENT: atraumatic, normocephalic Eye exam: PRESENT: conjunctiva pink, EOMI, PERRLA. ABSENT: scleral icterus Ear exam: PRESENT: normal external ear exam Mouth exam: PRESENT: moist, tongue midline Neck exam: ABSENT: carotid bruit, JVD, lymphadenopathy, thyromegaly Respiratory exam: PRESENT: clear to auscultation michael. ABSENT: rales, rhonchi, wheezes Cardiovascular exam: PRESENT: RRR. ABSENT: diastolic murmur, rubs, systolic murmur Pulses: PRESENT: normal dorsalis pedis pul Vascular exam: PRESENT: normal capillary refill GI/Abdominal exam: PRESENT: normal bowel sounds, soft. ABSENT: distended, guarding, mass, organolmegaly, rebound, tenderness Rectal exam: PRESENT: deferred Extremities exam: PRESENT: full ROM. ABSENT: calf tenderness, clubbing, pedal edema Neurological exam: PRESENT: alert, awake, oriented to person, oriented to place, oriented to time, oriented to situation, CN II-XII grossly intact. ABSENT: motor sensory deficit Psychiatric exam: PRESENT: appropriate affect, normal mood. ABSENT: homicidal ideation, suicidal ideation Skin exam: PRESENT: dry, intact, warm. ABSENT: cyanosis, rash Results Laboratory Results: 07/22/18 06:10 07/22/18 06:10 07/21/18 07/21/18 07/22/18 08:05 08:05 06:10 WBC 6.4 6.1 RBC 2.25 L 2.37 L Hgb 7.6 L 8.0 L Hct 22.7 L 24.1 L MCV 101 H 102 H MCH 33.6 H 33.9 H MCHC 33.2 33.4 RDW 18.6 H 18.6 H Plt Count 101 L 134 L Seg Neutrophils % Not Reportable 85.0 H Lymphocytes % Not Reportable 9.0 L Monocytes % Not Reportable 5.5 Eosinophils % Not Reportable 0.1 Basophils % Not Reportable 0.4 Absolute Neutrophils Not Reportable 5.2 Absolute Lymphocytes Not Reportable 0.5 Absolute Monocytes Not Reportable 0.3 Absolute Eosinophils Not Reportable 0.0 Absolute Basophils Not Reportable 0.0 Sodium 137.6 Potassium 3.5 L Chloride 104 Carbon Dioxide 28 Anion Gap 6 BUN 5 L Creatinine 0.41 L Est GFR ( Amer) > 60 Est GFR (Non-Af Amer) > 60 Glucose 105 Calcium 8.4 Magnesium Total Bilirubin 0.6 AST 19 ALT 13 Alkaline Phosphatase 65 Total Protein 5.9 L Albumin 3.0 L 07/22/18 06:10 WBC RBC Hgb Hct MCV MCH MCHC RDW Plt Count Seg Neutrophils % Lymphocytes % Monocytes % Eosinophils % Basophils % Absolute Neutrophils Absolute Lymphocytes Absolute Monocytes Absolute Eosinophils Absolute Basophils Sodium 140.6 Potassium 3.6 Chloride 105 Carbon Dioxide 29 Anion Gap 7 BUN 5 L Creatinine 0.42 L Est GFR ( Amer) > 60 Est GFR (Non-Af Amer) > 60 Glucose 113 H Calcium 8.7 Magnesium 1.6 Total Bilirubin 0.6 AST 26 ALT 24 Alkaline Phosphatase 90 Total Protein 6.6 Albumin 3.5 07/19/18 13:20 Clean Catch Midstream Urine Culture - Final Viridans Streptococcus 07/19/18 14:24 Blood Blood Culture - Final Streptococcus Pneumoniae 07/19/18 13:20 Blood Blood Culture - Final Streptococcus Pneumoniae Impressions: Chest X-Ray 07/19/18 12:30 IMPRESSION: Right lower lobe pneumonia. Status: Image reviewed by me Assessment & Plan - Diagnosis (1) Gram-positive cocci bacteremia Is this a current diagnosis for this admission?: Yes Plan: Currently on cefepime, awaiting culture results (2) Healthcare-associated pneumonia Is this a current diagnosis for this admission?: Yes Plan: Right lower lobe pneumonia, continue with current antibiotics changes will be based upon culture results (3) Head and neck cancer Is this a current diagnosis for this admission?: Yes Plan: Due for continued chemotherapy this week, stage IV disease, will be holding chemotherapy this week and probably reinitiate next week once this acute episode is passed (4) Pancytopenia due to antineoplastic chemotherapy Is this a current diagnosis for this admission?: Yes Plan: We are watching counts, iron level is relatively low so we could consider IV iron but would not give until she is past infection. Other cytopenias related to chemotherapy are stable - Time Time Spent with patient: 35 or more minutes - Inpatient Certification Based on my medical assessment, after consideration of the patient's comor bidities, presenting symptoms, or acuity I expect that the services needed warrant INPATIENT care.: Yes I certify that my determination is in accordance with my understanding of Medicare's requirements for reasonable and necessary INPATIENT services [42 CFR 412.3e].: Yes Medical Necessity: Need For IV Fluids, Need for IV Antibiotics, Risk of Complication if Not Cared For in Hospital
[2018-07-22] MEDS: FAMOTIDINE INJ/PF 20 MG/2 ML SDV IV SCH ×2 (09:02→22:56)
[2018-07-22] MEDS: CEFEPIME 1 GM/D5W RTU 1 GM/50 ML RTUPB IV SCH ×2 (09:02→22:56)
--- NOTE | 2018-07-22 13:47 | PDOC PROGRESS REPORT ---
Subjective Progress Note for:: 07/22/18 Subjective:: ELIAZAR NEGRETE is a 58 year old female past medical history of breast cancer and lingual cancer diagnosed in 2016 is post left breast lumpectomy and tongue surgery (PEG tube placement )followed by chemoradiation and recurrent leg will cancer on chemoradiation cycle 5/[address] Calle, chemotherapy-induced peripheral neuropathy, right upper extremity DVT (on Xarelto) who was sent to ED by Dr. Calle for complaining of fever, shortness of breath. No acute events overnight. Patient complaining of nausea otherwise no complaints. Reason For Visit: PNEUMONIA Physical Exam Vital Signs: Temp Pulse Resp BP Pulse Ox 97.6 F 53 L 16 119/60 98 07/22/18 12:00 07/22/18 12:00 07/22/18 12:00 07/22/18 12:00 07/22/18 12:00 Intake & Output 07/21/18 07/22/18 07/23/18 06:59 06:59 06:59 Intake Total 1900 2100 50 Balance 1900 2100 50 Weight 67.5 kg 62.5 kg General appearance: PRESENT: no acute distress, well-developed, well-nourished Head exam: PRESENT: atraumatic, normocephalic Neck exam: ABSENT: carotid bruit, JVD, lymphadenopathy, thyromegaly Respiratory exam: PRESENT: clear to auscultation michael, crackles - Right lower lobe. ABSENT: rales, rhonchi, wheezes GI/Abdominal exam: PRESENT: normal bowel sounds, soft. ABSENT: distended, guarding, mass, organolmegaly, rebound, tenderness Extremities exam: PRESENT: full ROM. ABSENT: calf tenderness, clubbing, pedal edema Neurological exam: PRESENT: alert, awake, oriented to person, oriented to place, oriented to time, oriented to situation, CN II-XII grossly intact. ABSENT: motor sensory deficit Results Laboratory Results: 07/22/18 06:10 07/22/18 06:10 07/22/18 07/22/18 06:10 06:10 WBC 6.1 RBC 2.37 L Hgb 8.0 L Hct 24.1 L MCV 102 H MCH 33.9 H MCHC 33.4 RDW 18.6 H Plt Count 134 L Seg Neutrophils % 85.0 H Lymphocytes % 9.0 L Monocytes % 5.5 Eosinophils % 0.1 Basophils % 0.4 Absolute Neutrophils 5.2 Absolute Lymphocytes 0.5 Absolute Monocytes 0.3 Absolute Eosinophils 0.0 Absolute Basophils 0.0 Sodium 140.6 Potassium 3.6 Chloride 105 Carbon Dioxide 29 Anion Gap 7 BUN 5 L Creatinine 0.42 L Est GFR ( Amer) > 60 Est GFR (Non-Af Amer) > 60 Glucose 113 H Calcium 8.7 Magnesium 1.6 Total Bilirubin 0.6 AST 26 ALT 24 Alkaline Phosphatase 90 Total Protein 6.6 Albumin 3.5 07/19/18 13:20 Clean Catch Midstream Urine Culture - Final Viridans Streptococcus Impressions: Chest X-Ray 07/19/18 12:30 IMPRESSION: Right lower lobe pneumonia. Assessment & Plan - Diagnosis (1) Healthcare-associated pneumonia Is this a current diagnosis for this admission?: Yes Plan: Day 4 cefepime. Day 3 of vancomycin. Blood cultures positive for 2/2 strep pneumo. Sputum cultures no growth. DC vancomycin. Continue cefepime. (2) Gram-positive cocci bacteremia Is this a current diagnosis for this admission?: Yes Plan: Strep pneumo. Day 3 cefepime. DC vancomycin. Repeat blood cultures. Follow-up cultures. (3) Deep venous thrombosis of right upper extremity Is this a current diagnosis for this admission?: No Plan: Restart Xarelto. Monitor for bleeding (4) Neuropathy associated with cancer Is this a current diagnosis for this admission?: No Plan: Start on gabapentin. (5) Breast cancer Qualifiers: Breast location: unspecified site of breast Estrogen receptor status: unspecified Patient sex: female Laterality: unspecified laterality Qualified Code(s): C50.919 - Malignant neoplasm of unspecified site of unspecified female breast Is this a current diagnosis for this admission?: No Plan: Followed by Dr. Calle as outpatient. (6) Anemia Is this a current diagnosis for this admission?: Yes Plan: Serum iron less than 10.1. RBC 271. Ferritin 129. Denies any external source of bleeding. Pending stool guaiac. Start on iron sulfate. Daily H&H. Transfuse if less than 7 symptomatic or actively bleeding. (7) Thrombocytopenia Is this a current diagnosis for this admission?: No Plan: Chronic. Stable. Due to complications of chemotherapy. Monitor for bleeding, supportive transfusions. (8) Head and neck cancer Is this a current diagnosis for this admission?: Yes Plan: Followed by Dr. Calle. Stage IV. Chemotherapy on hold while she is in the hospital. (9) Pancytopenia due to antineoplastic chemotherapy Is this a current diagnosis for this admission?: Yes Plan: Stable. Daily CBC.
[2018-07-22] MEDS: PROMETHAZINE HCL INJ 25 MG/1 ML VIAL IV PRN (13:49)
[2018-07-22 13:50] LABS: PATH REVIEW PATHOLOGIST REVIEWED
[2018-07-22] MEDS: OXYCODONE-ACETAMINOPHEN 5-325 MG TABLET PO PRN (16:49)
--- NOTE | 2018-07-22 16:53 | Progress Note ---
Provider Note Provider Note: ID Consult Note Asked to review chart by Pharmacy. Pt not seen or examined. Ms Levy is a 58 year old woman with PMH including breast cancer s/p lumpectomy and lingual cancer s/p tongue surgery followed by chemoradiation, RUE DVT on anticoagulation, and chemotherapy induced peripheral neuropathy. Pt was sent for admission on 07/19/18 for fever and SOB. She was found to have R lower lobe rales on exam and have opacification on CXR consistent with RLL pneumonia. She was found to have Streptococcus pneumoniae in both blood culture sets drawn on admission (one from her port and one peripherally), as well as bacteremic seeding of her urine with this organism. Impression/Recommendations sepsis due to bacteremic pneumonia with Streptococcus pneumoniae - Pseudomonas was not isolated. She was found to have Strep pneumo in blood, from a pneumonic source. Cefepime should be de-escalated to IV Rocephin 2 g q24h. - If otherwise uncomplicated and responding to therapy, there might not be a reason to treat pneumococcal bacteremia from CAP longer than 5-7 days; however, an argument could be made to aim for longer, such as 10 days, in Ms Levy' case, based on host factors / immune status. The entire 10 day duration does not need to be completed with IV antibiotics. When ready for discharge, she could switch to 750 mg PO levofloxacin to complete treatment. Breezy Molina MD [facility] Infectious Diseases pager [phone]
--- NOTE | 2018-07-23 08:58 | PDOC PROGRESS REPORT ---
Subjective Progress Note for:: 07/23/18 Subjective:: Patient looking better, feeling better this morning. I reviewed the infectious disease consultation, recommended change to Rocephin 2 g IV daily. Plan to treat for a total of 10 days, she has had 2 days of treatment already. They suggested upon discharge she could probably transition to Levaquin 750 mg daily. However I am unsure whether Levaquin can be crushed. Reason For Visit: PNEUMONIA Physical Exam Vital Signs: Temp Pulse Resp BP Pulse Ox 99.0 F 114 H 19 129/62 H 93 07/23/18 00:00 07/23/18 02:00 07/23/18 00:00 07/23/18 00:00 07/23/18 00:00 Intake & Output 07/22/18 07/23/18 07/24/18 06:59 06:59 06:59 Intake Total 2100 1050 Balance 2100 1050 Weight 62.5 kg 62.4 kg General appearance: PRESENT: no acute distress, well-developed, well-nourished Head exam: PRESENT: atraumatic, normocephalic Eye exam: PRESENT: conjunctiva pink, EOMI, PERRLA. ABSENT: scleral icterus Ear exam: PRESENT: normal external ear exam Mouth exam: PRESENT: moist, tongue midline Neck exam: ABSENT: carotid bruit, JVD, lymphadenopathy, thyromegaly Respiratory exam: PRESENT: clear to auscultation michael. ABSENT: rales, rhonchi, wheezes Cardiovascular exam: PRESENT: RRR. ABSENT: diastolic murmur, rubs, systolic murmur Pulses: PRESENT: normal dorsalis pedis pul Vascular exam: PRESENT: normal capillary refill GI/Abdominal exam: PRESENT: normal bowel sounds, soft. ABSENT: distended, guarding, mass, organolmegaly, rebound, tenderness Rectal exam: PRESENT: deferred Extremities exam: PRESENT: full ROM. ABSENT: calf tenderness, clubbing, pedal edema Neurological exam: PRESENT: alert, awake, oriented to person, oriented to place, oriented to time, oriented to situation, CN II-XII grossly intact. ABSENT: motor sensory deficit Psychiatric exam: PRESENT: appropriate affect, normal mood. ABSENT: homicidal ideation, suicidal ideation Skin exam: PRESENT: dry, intact, warm. ABSENT: cyanosis, rash Results Impressions: Chest X-Ray 07/19/18 12:30 IMPRESSION: Right lower lobe pneumonia. Assessment & Plan - Diagnosis (1) Healthcare-associated pneumonia Is this a current diagnosis for this admission?: Yes Plan: Antibiotic plan per ID as above (2) Head and neck cancer Is this a current diagnosis for this admission?: Yes Plan: Will need to hold chemotherapy for 1-2 weeks for her to get stronger and this episode to be completely resolved (3) Pancytopenia due to antineoplastic chemotherapy Is this a current diagnosis for this admission?: Yes Plan: Counts are stable continue to monitor (4) Sepsis due to Streptococcus pneumoniae Is this a current diagnosis for this admission?: Yes Plan: Reviewed notes from infectious disease, plan for transition to Rocephin 2 g IV daily, upon discharge we will plan for Levaquin as long as it can be crushed. (5) Nausea & vomiting Qualifiers: Vomiting type: bilious vomiting Qualified Code(s): R11.14 - Bilious vomiting Is this a current diagnosis for this admission?: Yes Plan: Related to chemotherapy, and the sepsis episode, continue with antiemetics and IV fluids, she needs to be able to tolerate her feeds prior to discharge without continuous vomiting - Time Time Spent with patient: 35 or more minutes - Inpatient Certification Based on my medical assessment, after consideration of the patient's comorbidities, presenting symptoms, or acuity I expect that the services needed warrant INPATIENT care.: Yes I certify that my determination is in accordance with my understanding of Medicare's requirements for reasonable and necessary INPATIENT services [42 CFR 412.3e].: Yes Medical Necessity: Need For IV Fluids, Need for IV Antibiotics
[2018-07-23 09:16] LABS: ALANINE AMINOTRANSFERASE 16 U/L (9-52); ALBUMIN 3.4 g/dL (3.5-5.0); ALKALINE PHOSPHATASE 86 U/L (38-126); ANION GAP 6 (5-19); ASPARTATE AMINO TRANSFERASE 27 U/L (14-36); BILIRUBIN,DIRECT 0.2 mg/dL (0.0-0.4); BILIRUBIN,TOTAL 0.6 mg/dL (0.2-1.3); BLOOD UREA NITROGEN 5 mg/dL (7-20); CALCIUM 8.5 mg/dL (8.4-10.2); CARBON DIOXIDE 26 mmol/L (22-30); CHLORIDE 108 mmol/L (98-107); GLUCOSE 114 mg/dL (75-110); POTASSIUM 3.6 mmol/L (3.6-5.0); SODIUM 140.4 mmol/L (137-145); TOTAL PROTEIN 6.6 g/dL (6.3-8.2)
[2018-07-23 09:29] LABS: ABSOLUTE LYMPHOCYTES (AUTO) 0.6 10^3/uL (0.5-4.7); ABSOLUTE MONOCYTES (AUTO) 0.6 10^3/uL (0.1-1.4); ABSOLUTE NEUT (AUTO) 2.2 10^3/uL (1.7-8.2); BASOPHILS % (AUTO) 0.5 % (0-2); EOSINOPHILS % (AUTO) 0.2 % (0-6); HEMATOCRIT 23.5 % (36.0-47.0); LYMPHOCYTES % (AUTO) 17.5 % (13-45); MEAN CORPUSCULAR HEMOGLOBIN 33.5 pg (27.0-33.4); MEAN CORPUSCULAR VOLUME 102 fl (80-97); MONOCYTES % (AUTO) 18.3 % (3-13); PLATELET COUNT 144 10^3/uL (150-450); RED BLOOD COUNT 2.32 10^6/uL (3.72-5.28); RED CELL DISTRIBUTION WIDTH 18.1 % (11.5-14.0); SEGMENTED NEUTROPHILS % (AUTO) 63.5 % (42-78); TOTAL CELLS COUNTED % (AUTO) 100 %; WHITE BLOOD COUNT 3.4 10^3/uL (4.0-10.5)
[2018-07-23 09:31] LABS: HEMOGLOBIN 7.8 g/dL (12.0-15.5)
[2018-07-23] MEDS ORDERED: ACETAMINOPHEN SOLN 325 MG/10.15 ML UDCUP ONE (10:50)
[2018-07-23] MEDS: CEFTRIAXONE 2 GM/D5W RTU 2 GM/50 ML RTUPB IV SCH (10:56)
[2018-07-23] MEDS: FAMOTIDINE INJ/PF 20 MG/2 ML SDV IV SCH ×2 (10:57→23:08)
[2018-07-23] MEDS: ONDANSETRON HCL INJ/PF 4 MG/2 ML SDV IV PRN ×2 (10:57→23:08)
[2018-07-23] MEDS: ACETAMINOPHEN SOLN 325 MG/10.15 ML UDCUP PO PRN ×2 (11:05→23:06)
--- NOTE | 2018-07-23 20:01 | PDOC PROGRESS REPORT ---
Subjective Progress Note for:: 07/23/18 Subjective:: ELIAZAR NEGRETE is a 58 year old female past medical history of breast cancer and lingual cancer diagnosed in 2016 is post left breast lumpectomy and tongue surgery (PEG tube placement )followed by chemoradiation and recurrent leg will cancer on chemoradiation cycle 5/[address] Calle, chemotherapy-induced peripheral neuropathy, right upper extremity DVT (on Xarelto) who was sent to ED by Dr. Calle for complaining of fever, shortness of breath. She was admitted for healthcare associated pneumonia. She was initially started on broad- spectrum IV antibiotics. Blood culture came back positive for was S. pneumoniae 2/2 bottles. No acute event overnight. Patient continues to improve gradually. Upon encounter, she is saturating well on room air. She says she feels a little better today. Reason For Visit: PNEUMONIA Physical Exam Vital Signs: Temp Pulse Resp BP Pulse Ox 97.9 F 107 H 16 120/71 100 07/23/18 16:09 07/23/18 16:09 07/23/18 16:09 07/23/18 16:09 07/23/18 16:09 Intake & Output 07/22/18 07/23/18 07/24/18 06:59 06:59 06:59 Intake Total 2100 1050 Balance 2100 1050 Weight 137 lb 12.623 oz 137 lb 9.095 oz General appearance: PRESENT: no acute distress, well-developed, well-nourished Head exam: PRESENT: atraumatic, normocephalic Eye exam: PRESENT: conjunctiva pink, EOMI, PERRLA. ABSENT: scleral icterus Ear exam: PRESENT: normal external ear exam Mouth exam: PRESENT: moist, tongue midline Neck exam: ABSENT: carotid bruit, JVD, lymphadenopathy, thyromegaly Respiratory exam: PRESENT: rhonchi. ABSENT: rales, wheezes Pulses: PRESENT: normal dorsalis pedis pul GI/Abdominal exam: PRESENT: normal bowel sounds, soft. ABSENT: distended, guarding, mass, organolmegaly, rebound, tenderness Rectal exam: PRESENT: deferred Neurological exam: PRESENT: alert, awake, oriented to person, oriented to place, oriented to time, oriented to situation, CN II-XII grossly intact. ABSENT: motor sensory deficit Results Laboratory Results: 07/23/18 08:10 07/23/18 08:10 07/23/18 07/23/18 08:10 08:10 WBC 3.4 L RBC 2.32 L Hgb 7.8 L Hct 23.5 L MCV 102 H MCH 33.5 H MCHC 33.0 RDW 18.1 H Plt Count 144 L Seg Neutrophils % 63.5 Lymphocytes % 17.5 Monocytes % 18.3 H Eosinophils % 0.2 Basophils % 0.5 Absolute Neutrophils 2.2 Absolute Lymphocytes 0.6 Absolute Monocytes 0.6 Absolute Eosinophils 0.0 Absolute Basophils 0.0 Sodium 140.4 Potassium 3.6 Chloride 108 H Carbon Dioxide 26 Anion Gap 6 BUN 5 L Creatinine 0.43 L Est GFR ( Amer) > 60 Est GFR (Non-Af Amer) > 60 Glucose 114 H Calcium 8.5 Magnesium 1.6 Total Bilirubin 0.6 AST 27 ALT 16 Alkaline Phosphatase 86 Total Protein 6.6 Albumin 3.4 L Impressions: Chest X-Ray 07/19/18 12:30 IMPRESSION: Right lower lobe pneumonia. Assessment & Plan - Diagnosis (1) Healthcare-associated pneumonia Is this a current diagnosis for this admission?: Yes Plan: Noted and recommendation. Cefepime has been escalated to Rocephin. Patient skip l be discharged on oral Levaquin. Verified with pharmacy that this can be crushed. (2) Sepsis due to Streptococcus pneumoniae Is this a current diagnosis for this admission?: Yes Plan: As mentioned blood culture grew S. pneumoniae 2/. Antibiotic changes as mentioned. Repeat blood culture pending. - Time Time Spent with patient: 25-34 minutes
[2018-07-23] MEDS: DEXTROSE 5%-1/4 NORMAL SALINE 1,000 ML IV PRN (23:20)
[2018-07-24] MEDS: ONDANSETRON HCL INJ/PF 4 MG/2 ML SDV IV PRN ×2 (05:16→21:57)
[2018-07-24 05:51] LABS: HEMATOCRIT 22.7 % (36.0-47.0); MEAN CORPUSCULAR HEMOGLOBIN 33.4 pg (27.0-33.4); MEAN CORPUSCULAR HGB CONC 32.9 g/dL (32.0-36.0); MEAN CORPUSCULAR VOLUME 102 fl (80-97); PLATELET COUNT 155 10^3/uL (150-450); RED BLOOD COUNT 2.24 10^6/uL (3.72-5.28); RED CELL DISTRIBUTION WIDTH 17.5 % (11.5-14.0)
[2018-07-24 06:13] LABS: ABSOLUTE LYMPHOCYTES# (MANUAL) 1.1 10^3/uL (0.5-4.7); ABSOLUTE NEUTROPHILS# (MANUAL) 1.8 10^3/uL (1.7-8.2); BASOPHILS % (MANUAL) 1 % (0-2); EOSINOPHILS % (MANUAL) 1 % (0-6); LYMPHOCYTES % (MANUAL) 27 % (13-45); SEGMENTED NEUTROPHILS % (MAN) 45 % (42-78); TOTAL CELLS COUNTED 100
[2018-07-24 06:16] LABS: ANISOCYTOSIS 2+; PLATELET COMMENT ADEQUATE; POIKILOCYTOSIS SLIGHT; SCHISTOCYTES SLIGHT
[2018-07-24 06:17] LABS: MONOCYTES % (MANUAL) 26 % (3-13)
[2018-07-24 06:32] LABS: ANION GAP 9 (5-19); BLOOD UREA NITROGEN 7 mg/dL (7-20); CALCIUM 8.6 mg/dL (8.4-10.2); CARBON DIOXIDE 27 mmol/L (22-30); CHLORIDE 106 mmol/L (98-107); GLUCOSE 107 mg/dL (75-110); POTASSIUM 3.9 mmol/L (3.6-5.0)
--- NOTE | 2018-07-24 08:21 | PDOC PROGRESS REPORT ---
Subjective Progress Note for:: 07/24/18 Subjective:: No acute events overnight, pt did have emesis, hb dropped to 7.5, hospitalist team sent repeat bcx Reason For Visit: PNEUMONIA Physical Exam Vital Signs: Temp Pulse Resp BP Pulse Ox 98.7 F 73 17 121/65 100 07/24/18 00:00 07/24/18 02:00 07/24/18 00:00 07/24/18 00:00 07/24/18 00:00 Intake & Output 07/23/18 07/24/18 07/25/18 06:59 06:59 06:59 Intake Total 2049 Balance 2049 Weight 62.4 kg 61.5 kg General appearance: PRESENT: no acute distress, well-developed, well-nourished Head exam: PRESENT: atraumatic, normocephalic Eye exam: PRESENT: conjunctiva pink, EOMI, PERRLA. ABSENT: scleral icterus Ear exam: PRESENT: normal external ear exam Mouth exam: PRESENT: moist, tongue midline Neck exam: ABSENT: carotid bruit, JVD, lymphadenopathy, thyromegaly Respiratory exam: PRESENT: clear to auscultation michael. ABSENT: rales, rhonchi, wheezes Cardiovascular exam: PRESENT: RRR. ABSENT: diastolic murmur, rubs, systolic murmur Pulses: PRESENT: normal dorsalis pedis pul Vascular exam: PRESENT: normal capillary refill GI/Abdominal exam: PRESENT: normal bowel sounds, soft. ABSENT: distended, guarding, mass, organolmegaly, rebound, tenderness Rectal exam: PRESENT: deferred Extremities exam: PRESENT: full ROM. ABSENT: calf tenderness, clubbing, pedal edema Neurological exam: PRESENT: alert, awake, oriented to person, oriented to place, oriented to time, oriented to situation, CN II-XII grossly intact. ABSENT: motor sensory deficit Psychiatric exam: PRESENT: appropriate affect, normal mood. ABSENT: homicidal ideation, suicidal ideation Skin exam: PRESENT: dry, intact, warm. ABSENT: cyanosis, rash Results Laboratory Results: 07/24/18 05:00 07/24/18 05:00 07/23/18 07/23/18 07/24/18 08:10 08:10 05:00 WBC 3.4 L 4.0 RBC 2.32 L 2.24 L Hgb 7.8 L 7.5 L Hct 23.5 L 22.7 L MCV 102 H 102 H MCH 33.5 H 33.4 MCHC 33.0 32.9 RDW 18.1 H 17.5 H Plt Count 144 L 155 Seg Neutrophils % 63.5 Not Reportable Lymphocytes % 17.5 Not Reportable Monocytes % 18.3 H Not Reportable Eosinophils % 0.2 Not Reportable Basophils % 0.5 Not Reportable Absolute Neutrophils 2.2 Not Reportable Absolute Lymphocytes 0.6 Not Reportable Absolute Monocytes 0.6 Not Reportable Absolute Eosinophils 0.0 Not Reportable Absolute Basophils 0.0 Not Reportable Sodium 140.4 Potassium 3.6 Chloride 108 H Carbon Dioxide 26 Anion Gap 6 BUN 5 L Creatinine 0.43 L Est GFR ( Amer) > 60 Est GFR (Non-Af Amer) > 60 Glucose 114 H Calcium 8.5 Magnesium 1.6 Total Bilirubin 0.6 AST 27 ALT 16 Alkaline Phosphatase 86 Total Protein 6.6 Albumin 3.4 L 07/24/18 05:00 WBC RBC Hgb Hct MCV MCH MCHC RDW Plt Count Seg Neutrophils % Lymphocytes % Monocytes % Eosinophils % Basophils % Absolute Neutrophils Absolute Lymphocytes Absolute Monocytes Absolute Eosinophils Absolute Basophils Sodium 142.0 Potassium 3.9 Chloride 106 Carbon Dioxide 27 Anion Gap 9 BUN 7 Creatinine 0.43 L Est GFR ( Amer) > 60 Est GFR (Non-Af Amer) > 60 Glucose 107 Calcium 8.6 Magnesium Total Bilirubin AST ALT Alkaline Phosphatase Total Protein Albumin Impressions: Chest X-Ray 07/19/18 12:30 IMPRESSION: Right lower lobe pneumonia. Assessment & Plan - Diagnosis (1) Healthcare-associated pneumonia Is this a current diagnosis for this admission?: Yes Plan: Cont rocephin, will switch to levaquin per g tube as outpt (2) Head and neck cancer Is this a current diagnosis for this admission?: Yes Plan: cont rx as outpt but will need chemo hold x 1-2 wk while she recovers (3) Pancytopenia due to antineoplastic chemotherapy Is this a current diagnosis for this admission?: Yes Plan: hb downt to 7.5, will transfuse today (4) Sepsis due to Streptococcus pneumoniae Is this a current diagnosis for this admission?: Yes Plan: atbx con't (5) Nausea & vomiting Qualifiers: Vomiting type: bilious vomiting Qualified Code(s): R11.14 - Bilious vomiting Is this a current diagnosis for this admission?: Yes Plan: cont antiemetics - Time Time Spent with patient: 35 or more minutes Within: within 48 hours - Inpatient Certification Based on my medical assessment, after consideration of the patient's comorbidities, presenting symptoms, or acuity I expect that the services needed warrant INPATIENT care.: Yes I certify that my determination is in accordance with my understanding of Medicare's requirements for reasonable and necessary INPATIENT services [42 CFR 412.3e].: Yes Medical Necessity: Need For IV Fluids, Need for IV Antibiotics, Risk of Complication if Not Cared For in Hospital
[2018-07-24] MEDS: PROMETHAZINE HCL INJ 25 MG/1 ML VIAL IV PRN (09:00)
[2018-07-24] MEDS ORDERED: DIPHENHYDRAMINE HCL 50 MG/ML VIAL IV PRN (10:15)
[2018-07-24] MEDS: FAMOTIDINE INJ/PF 20 MG/2 ML SDV IV SCH ×2 (10:23→21:56)
[2018-07-24] MEDS: CEFTRIAXONE 2 GM/D5W RTU 2 GM/50 ML RTUPB IV SCH (10:24)
[2018-07-24] MEDS: ACETAMINOPHEN SOLN 325 MG/10.15 ML UDCUP PO PRN ×2 (12:06→21:56)
[2018-07-24 13:01] LABS: PATH REVIEW PATHOLOGIST REVIEWED
[2018-07-24] MEDS ORDERED: NORMAL SALINE 500 ML IV ONE (13:45)
--- NOTE | 2018-07-24 15:43 | PDOC PROGRESS REPORT ---
Subjective Progress Note for:: 07/24/18 Subjective:: ELIAZAR NEGRETE is a 58 year old female past medical history of breast cancer and lingual cancer diagnosed in 2016, S/P left breast lumpectomy and tongue surgery (S/P PEG tube placement )followed by chemoradiation and recurrent leg will cancer on chemoradiation cycle 5/[address] Calle, chemotherapy-induced peripheral neuropathy, right upper extremity DVT (on Xarelto) who was sent to ED by Dr. Calle for complaining of fever, shortness of breath. She was admitted for healthcare associated pneumonia. She was initially started on broad- spectrum IV antibiotics. 07/23: Blood culture came back positive for was S. pneumoniae 2/2 bottles. Patient continues to improve gradually. Upon encounter, she is saturating well on room air. She says she feels a little better today. 07/24: Patient had one episode of nonbloody, nonbilious emesis last night. Her hemoglobin trended down this morning from 8->7.8->7.5. Oncology has ordered a unit of pRBC. No hematemesis, melena or hematochezia. She is saturating well on room air. Reason For Visit: PNEUMONIA Physical Exam Vital Signs: Temp Pulse Resp BP Pulse Ox 98 F 112 H 18 107/60 98 07/24/18 15:24 07/24/18 15:24 07/24/18 15:24 07/24/18 15:24 07/24/18 15:24 Intake & Output 07/23/18 07/24/18 07/25/18 06:59 06:59 06:59 Intake Total 2049 50 921 Balance 2049 50 921 Weight 137 lb 9.095 oz 135 lb 9.349 oz General appearance: PRESENT: no acute distress, thin Head exam: PRESENT: atraumatic, normocephalic Eye exam: PRESENT: conjunctiva pink, EOMI, PERRLA. ABSENT: scleral icterus Mouth exam: PRESENT: moist, tongue midline Neck exam: ABSENT: carotid bruit, JVD, lymphadenopathy, thyromegaly Respiratory exam: PRESENT: rales, rhonchi. ABSENT: wheezes Cardiovascular exam: PRESENT: RRR. ABSENT: diastolic murmur, rubs, systolic murmur Pulses: PRESENT: normal dorsalis pedis pul GI/Abdominal exam: PRESENT: normal bowel sounds, soft. ABSENT: distended, guard ing, mass, organolmegaly, rebound, tenderness Rectal exam: PRESENT: deferred Neurological exam: PRESENT: alert, awake, oriented to person, oriented to place, oriented to time, oriented to situation, CN II-XII grossly intact. ABSENT: motor sensory deficit Results Laboratory Results: 07/24/18 05:00 07/24/18 05:00 07/24/18 07/24/18 07/24/18 05:00 05:00 10:20 WBC 4.0 RBC 2.24 L Hgb 7.5 L Hct 22.7 L MCV 102 H MCH 33.4 MCHC 32.9 RDW 17.5 H Plt Count 155 Seg Neutrophils % Not Reportable Lymphocytes % Not Reportable Monocytes % Not Reportable Eosinophils % Not Reportable Basophils % Not Reportable Absolute Neutrophils Not Reportable Absolute Lymphocytes Not Reportable Absolute Monocytes Not Reportable Absolute Eosinophils Not Reportable Absolute Basophils Not Reportable Sodium 142.0 Potassium 3.9 Chloride 106 Carbon Dioxide 27 Anion Gap 9 BUN 7 Creatinine 0.43 L Est GFR ( Amer) > 60 Est GFR (Non-Af Amer) > 60 Glucose 107 Calcium 8.6 Blood Type O POSITIVE Antibody Screen NEGATIVE Impressions: Chest X-Ray 07/19/18 12:30 IMPRESSION: Right lower lobe pneumonia. Assessment & Plan - Diagnosis (1) Healthcare-associated pneumonia Is this a current diagnosis for this admission?: Yes Plan: Noted ID recommendation. Cefepime has been escalated to Rocephin. Patient will be discharged on oral Levaquin possible tomorrow if no acute issues tonight. Verified with pharmacy that this can be crushed. (2) Sepsis due to Streptococcus pneumoniae Is this a current diagnosis for this admission?: Yes Plan: Secondary to HCAP. As mentioned blood culture grew S. pneumoniae 2/2. Antibiotic changes as mentioned. Repeat blood culture negative so far. (3) Anemia Is this a current diagnosis for this admission?: Yes Plan: Acute on chronic anemia likely from chronic disease. She will be getting a unit of pRBC. - Time Time Spent with patient: 25-34 minutes
[2018-07-25 02:12] LABS: HEMATOCRIT 25.6 % (36.0-47.0); HEMOGLOBIN 8.5 g/dL (12.0-15.5); MEAN CORPUSCULAR HEMOGLOBIN 33.3 pg (27.0-33.4); MEAN CORPUSCULAR HGB CONC 33.1 g/dL (32.0-36.0); MEAN CORPUSCULAR VOLUME 101 fl (80-97); PLATELET COUNT 164 10^3/uL (150-450); RED BLOOD COUNT 2.54 10^6/uL (3.72-5.28); WHITE BLOOD COUNT 4.6 10^3/uL (4.0-10.5)
[2018-07-25] MEDS: ONDANSETRON HCL INJ/PF 4 MG/2 ML SDV IV PRN (03:13)
[2018-07-25] MEDS: PROMETHAZINE HCL INJ 25 MG/1 ML VIAL IV PRN (05:20)
[2018-07-25] MEDS: ACETAMINOPHEN SOLN 325 MG/10.15 ML UDCUP PO PRN (05:20)
--- NOTE | 2018-07-25 08:39 | PDOC PROGRESS REPORT ---
Subjective Progress Note for:: 07/25/18 Subjective:: Patient looks much better today. Very minimal emesis yesterday. Hemoglobin is improved. Reason For Visit: PNEUMONIA Physical Exam Vital Signs: Temp Pulse Resp BP Pulse Ox 98.7 F 110 H 17 95/55 L 99 07/25/18 00:00 07/25/18 07:00 07/25/18 00:00 07/25/18 00:00 07/25/18 00:00 Intake & Output 07/24/18 07/25/18 07/26/18 06:59 06:59 06:59 Intake Total 50 1721 Balance 50 1721 Weight 61.5 kg 63.2 kg General appearance: PRESENT: no acute distress, well-developed, well-nourished Head exam: PRESENT: atraumatic, normocephalic Eye exam: PRESENT: conjunctiva pink, EOMI, PERRLA. ABSENT: scleral icterus Ear exam: PRESENT: normal external ear exam Mouth exam: PRESENT: moist, tongue midline Neck exam: ABSENT: carotid bruit, JVD, lymphadenopathy, thyromegaly Respiratory exam: PRESENT: clear to auscultation michael. ABSENT: rales, rhonchi, wheezes Cardiovascular exam: PRESENT: RRR. ABSENT: diastolic murmur, rubs, systolic murmur Pulses: PRESENT: normal dorsalis pedis pul Vascular exam: PRESENT: normal capillary refill GI/Abdominal exam: PRESENT: normal bowel sounds, soft. ABSENT: distended, guarding, mass, organolmegaly, rebound, tenderness Rectal exam: PRESENT: deferred Extremities exam: PRESENT: full ROM. ABSENT: calf tenderness, clubbing, pedal edema Neurological exam: PRESENT: alert, awake, oriented to person, oriented to place, oriented to time, oriented to situation, CN II-XII grossly intact. ABSENT: motor sensory deficit Psychiatric exam: PRESENT: appropriate affect, normal mood. ABSENT: homicidal ideation, suicidal ideation Skin exam: PRESENT: dry, intact, warm. ABSENT: cyanosis, rash Results Laboratory Results: 07/25/18 01:30 07/24/18 05:00 07/24/18 07/25/18 10:20 01:30 WBC 4.6 RBC 2.54 L Hgb 8.5 L Hct 25.6 L MCV 101 H MCH 33.3 MCHC 33.1 RDW 17.0 H Plt Count 164 Blood Type O POSITIVE Antibody Screen NEGATIVE Impressions: Chest X-Ray 07/19/18 12:30 IMPRESSION: Right lower lobe pneumonia. Assessment & Plan - Diagnosis (1) Healthcare-associated pneumonia Is this a current diagnosis for this admission?: Yes Plan: Patient doing well, will transition now to antibiotics per G-tube as an outpatient. (2) Head and neck cancer Is this a current diagnosis for this admission?: Yes Plan: Hold chemotherapy for the next 2 weeks most likely, reinitiate thereafter as soon as her body is ready. (3) Pancytopenia due to antineoplastic chemotherapy Is this a current diagnosis for this admission?: Yes Plan: Improved posttransfusion, will monitor (4) Sepsis due to Streptococcus pneumoniae Is this a current diagnosis for this admission?: Yes Plan: Blood cultures are negative now, will defer to hospitalist team on length of antibiotic but usually would be 10-14 days from negative culture and she is Brett had for 5 days so may be only another 5-7 days. (5) Nausea & vomiting Qualifiers: Vomiting type: bilious vomiting Qualified Code(s): R11.14 - Bilious vomiting Is this a current diagnosis for this admission?: Yes Plan: Improved, secondary to chemotherapy - Time Time Spent with patient: 35 or more minutes
[2018-07-25 08:52] LABS: HEMOGLOBIN 7.5 g/dL (12.0-15.5)
[2018-07-25 10:20] VITALS: BP 119/63
[2018-07-25] MEDS: CEFTRIAXONE 2 GM/D5W RTU 2 GM/50 ML RTUPB IV SCH (10:49)
[2018-07-25] MEDS: FAMOTIDINE INJ/PF 20 MG/2 ML SDV IV SCH (10:49)
[2018-07-25] MEDS: DEXTROSE 5%-1/4 NORMAL SALINE 1,000 ML IV PRN (10:50)
--- NOTE | 2018-07-25 18:16 | PDOC DISCHARGE SUMMARY ---
General - Admit/Disc Date/PCP Admission Date/Primary Care Provider: 07/19/18 16:50 KRISTYN SMITH MD Discharge Date: 07/25/18 - Discharge Diagnosis (1) Healthcare-associated pneumonia Is this a current diagnosis for this admission?: Yes (2) Sepsis due to Streptococcus pneumoniae Is this a current diagnosis for this admission?: Yes (3) Anemia Is this a current diagnosis for this admission?: Yes - Additional Information Discharge Diet: As Tolerated, Tube Feeding (Comments) Discharge Activity: Activity As Tolerated, Balance Activity w/Rest Prescriptions: Levofloxacin [Levaquin 750 mg Tablet] 750 mg PO DAILY #4 tablet Home Medications: Fentanyl [Duragesic 25 mcg/hr Transdermal Patch] 25 mcg TD Q3D 07/19/18 Hydrocodone Bit/Acetaminophen [Hydrocodone-Acetaminophen Soln] 15 ml PO Q6HP PRN 07/19/18 Lorazepam [Ativan 0.5 mg Tablet] 0.25 mg PO DAILY 07/19/18 Ondansetron HCl [Zofran 4 mg/5 ml Oral Soln] 5 ml PO DAILY 07/19/18 Scopolamine 1 patch TD Q3D 07/19/18 Levofloxacin [Levaquin 750 mg Tablet] 750 mg PO DAILY #4 tablet 07/25/18 History of Present Illness History of Present Illness: Admitting hospitalist's H&P: ELIAZAR NEGRETE is a 58 year old female past medical history of breast cancer and lingual cancer diagnosed in 2016 is post left breast lumpectomy and tongue surgery (PEG tube placement )followed by chemoradiation and recurrent leg will cancer on chemoradiation cycle 5/[address] Smith, chemotherapy-induced peripheral neuropathy, right upper extremity DVT (on Xarelto) who was sent to ED by Dr. Smith for complaining of fever, shortness of breath. Denies any nausea, abdominal pain, diarrhea, constipation, dysuria, weight changes, numbness and tingling, weakness. In ED a chest x-ray showed right lower lobe pneumonia. Hospitalist was consulted for admission. Hospital Course Hospital Course: ELIAZAR NEGRETE is a 58 year old female past medical history of breast cancer and lingual cancer diagnosed in 2016, S/P left breast lumpectomy and tongue surgery (S/P PEG tube placement )followed by chemoradiation and recurrent leg will cancer on chemoradiation cycle 5/[address] Smith, chemotherapy-induced peripheral neuropathy, right upper extremity DVT (on Xarelto) who was sent to ED by Dr. Smith for complaining of fever, shortness of breath. She was admitted for healthcare associated pneumonia. She was initially started on broad- spectrum IV antibiotics. 07/23: Blood culture came back positive for was S. pneumoniae 2/2 bottles. Patient continues to improve gradually. Upon encounter, she is saturating well on room air. She says she feels a little better today. 07/24: Patient had one episode of nonbloody, nonbilious emesis last night. Her hemoglobin trended down this morning from 7.4->8->7.8->7.5. Oncology has ordered a unit of pRBC. No hematemesis, melena or hematochezia. She is saturating well on room air. 07/25: Patient continues to feel better. Repeat blood cultures have been negative. No recurrence of nausea or vomiting. Hemoglobin has been stable. Noted ID recommendations. She has received 6 days of IV antibiotics. She will be discharged on 4 more days of Levaquin. Physical Exam Vital Signs: Temp Pulse Resp BP Pulse Ox 98.5 F 101 H 15 119/63 99 07/25/18 13:16 07/25/18 13:16 07/25/18 13:16 07/25/18 13:16 07/25/18 13:16 Intake & Output 07/24/18 07/25/18 07/26/18 06:59 06:59 06:59 Intake Total 50 1721 50 Balance 50 1721 50 Weight 135 lb 9.349 oz 139 lb 5.314 oz General appearance: PRESENT: no acute distress, thin Head exam: PRESENT: atraumatic, normocephalic Eye exam: PRESENT: conjunctiva pink, EOMI, PERRLA. ABSENT: scleral icterus Ear exam: PRESENT: normal external ear exam Neck exam: ABSENT: carotid bruit, JVD, lymphadenopathy, thyromegaly Respiratory exam: PRESENT: clear to auscultation michael. ABSENT: rales, rhonchi, wheezes Cardiovascular exam: PRESENT: RRR. ABSENT: diastolic murmur, rubs, systolic murmur Pulses: PRESENT: normal dorsalis pedis pul GI/Abdominal exam: PRESENT: normal bowel sounds, soft. ABSENT: distended, guarding, mass, organolmegaly, rebound, tenderness Rectal exam: PRESENT: deferred Neurological exam: PRESENT: alert, awake, oriented to person, oriented to place, oriented to time, oriented to situation, CN II-XII grossly intact. ABSENT: motor sensory deficit Results Laboratory Results: 07/25/18 01:30 07/24/18 05:00 07/24/18 07/25/18 05:00 01:30 WBC 4.6 RBC 2.54 L Hgb 7.5 L 8.5 L Hct 25.6 L MCV 101 H MCH 33.3 MCHC 33.1 RDW 17.0 H Plt Count 164 Impressions: Chest X-Ray 07/19/18 12:30 IMPRESSION: Right lower lobe pneumonia. Qualifiers - * PATIENT BEING DISCHARGED WITH ANY OF THE FOLLOWING DIAGNOSIS: No
== END 2018-07-25 14:15 | disposition home or self-care (01) | DRG 871 ==
LOC: ER 11:52 → EH 16:50 → 5 20:49 → EH 20:57 → 5 21:09
PROVIDERS: ADMIT Internal Medicine; ATTEND Internal Medicine
PROC: 30233N1 Transfusion of Nonautologous Red Blood Cells into Peripheral Vein, Percutaneous Approach (ICD-10-PCS; principal; 2018-07-24)
DX: A40.3 Sepsis due to Streptococcus pneumoniae (principal); J15.9 Unspecified bacterial pneumonia; D61.810 Antineoplastic chemotherapy induced pancytopenia; I82.621 Acute embolism and thrombosis of deep veins of right upper extremity; D69.59 Other secondary thrombocytopenia; T45.1X5A Adverse effect of antineoplastic and immunosuppressive drugs, initial encounter; B95.3 Streptococcus pneumoniae as the cause of diseases classified elsewhere; C02.9 Malignant neoplasm of tongue, unspecified; C50.919 Malignant neoplasm of unspecified site of unspecified female breast; I10 Essential (primary) hypertension; D64.9 Anemia, unspecified; J45.909 Unspecified asthma, uncomplicated; G62.9 Polyneuropathy, unspecified; M19.90 Unspecified osteoarthritis, unspecified site; Z79.01 Long term (current) use of anticoagulants; Z93.1 Gastrostomy status
CPT/HCPCS: 36415; 36430; 36591; 71045; 80048; 80053; 80202; 81001; 82607; 82728; 82746; 83540; 83550; 83735; 84100; 85025; 85027; 85045; 86850; 86900; 86901; 86920; 87040; 87077; 87086; 87186; 87804; 93005; 93010; 96360; 99284; J0692; J0696; J1200; J1956; J2405; J2543; J2550; J3370; J3490; J7030; J7040; J7060; P9016; S0028

== ENCOUNTER → 2018-08-28 | Outpatient (CLI) | payer OTHER ==
--- NOTE | 2018-08-28 12:08 | WOMENS IMAGING REPORT ---
EXAM DESCRIPTION: 3D DX MAMMO BILAT COMPLETED DATE/TIME: 08/28/2018 11:49 am REASON FOR STUDY: N63.0 UNSPECIFIED LUMP IN UNSPECIFIED BREAST,C50.212 MALIGNANT NEOPLASM OF C50.212 MALIG NEOPLASM OF UPPER-INNER QUADRANT OF LEFT FEMAL COMPARISON: [id number] TECHNIQUE: Standard craniocaudal and mediolateral oblique views of each breast recorded using digita l acquisition and breast tomosynthesis. True lateral view left breast. LIMITATIONS: Positioning. Right-sided port. FINDINGS: RIGHT BREAST MASSES: No suspicious masses. CALCIFICATIONS: No new or suspicious calcifications. ARCHITECTURAL DISTORTION: None. DEVELOPING DENSITY: None. ASYMMETRY: None noted. OTHER: No other significant findings. LEFT BREAST MASSES: No suspicious masses. CALCIFICATIONS: No new or suspicious calcifications. ARCHITECTURAL DISTORTION: Lower outer quadrant, stable. DEVELOPING DENSITY: None. ASYMMETRY: None noted. OTHER: No other significant finding. Read with the assistance of CAD: .[facility] - R2 [employer] Version 1.3 .[facility] - R2 Cenova Version 2.1 .[facility] - R2 Cenova Version 2.4 .[facility] [place] - R2 Cenova Version 2.4 .[facility] - R2 [employer] Version 9.2 IMPRESSION: No evidence of malignancy. BREAST DENSITY: c. The breasts are heterogeneously dense, which may obscure small masses. BIRAD: 2 Benign findings. RECOMMENDATION: RECOMMENDED FOLLOW UP: Annual mammographic follow-up. SPECIFIC INTERVENTION/IMAGING/CONSULTATION RECOMMENDED:No additional intervention/ imaging/consultati on needed at this time. COMMUNICATION:The imaging findings were not discussed with the patient. Her referring provider has be en notified of the findings. COMMENT: The patient has been notified of the results by letter per SA requirements. Additional no tification policies are in place for contacting patient with suspicious or incomplete findings. Quality ID #[id number]: The [employer] recommends an annual screening mammogram for women aged 40 years or over. This facility utilizes a reminder system to ensure that all patients receive reminder letters, and/or direct phone calls for appointments. This includes reminders for routine scr eening mammograms, diagnostic mammograms, or other Breast Imaging Interventions when appropriate. Th is patient will be placed in the appropriate reminder system. The [employer] (ACR) has developed recommendations for screening MRI of the breast s in certain patient populations, to be used in conjunction with mammography. Breast MRI surveillanc e may be appropriate for women with more than 20% lifetime risk of developing breast cancer as deter mined by genetic testing, significant family history of the disease, or history of mantle radiation f or Hodgkins Disease. ACR Practice Guidelines 2008. DBT Technology DBT is a type of tomographic mammography. With conventional mammography, overlapping breast tissue ma y make lesions difficult to detect, even with good compression. DBT uses an x-ray tube that rotates a round the breast, taking images at different angles. These images are then combined to create thin sl ices of the breast that the radiologist can view as a 3D reconstruction. The MedTest DX unit can perform full-field digital mammograms (2D imaging); or DBT (3D imaging); or both, in a combination mode that quickly performs both the mammogram and the tomosynthesis scan while the breast is still compressed. PQRS 6045F: Fluoroscopic imaging is not utilized for breast tomosynthesis. TECHNICAL DOCUMENTATION: FINDING NUMBER: (1) ASSESSMENT: (1) JOB ID: [id number] [employer]- All Rights Reserved Reading location - IP/workstation name: [email or web address]
== END ==
LOC: WI 11:24
PROVIDERS: ATTEND Internal Medicine
DX: C50.212 Malignant neoplasm of upper-inner quadrant of left female breast (principal)
CPT/HCPCS: 77066; G0279; 77062

== ENCOUNTER → 2018-09-09 | Outpatient (CLI) | payer OTHER ==
--- NOTE | 2018-09-09 12:38 | RADIOLOGY REPORT (SQ) ---
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 Reconstructed coronal and sagittal MPR images reviewed. All images stored on PACS. All CT scanners at this facility use dose modulation, iterative reconstruction, and/or weight based d osing when appropriate to reduce radiation dose to as low as reasonably achievable (ALARA). [facility]: Dose Right [facility]: CareDose [facility]: Dose Right [facility]: Teradose 4D [facility]: Signicast CONTRAST TYPE AND DOSE: 69 mL of IV Omnipaque 350 Omnipaque 350- low osmolar. RENAL FUNCTION: Creatinine 0.4 RADIATION DOSE: 13.5 mGy . LIMITATIONS: None. FINDINGS: SKULL BASE: Inferior brain parenchyma in the field of view unremarkable MAJOR SALIVARY GLANDS: Post resection of the left submandibular gland and tongue base, with post ther apeutic changes in the left floor of mouth. Right submandibular gland above bilateral parotid and pastor blingual glands are unremarkable LYMPHADENOPATHY: There is a 5 mm right lateral floor of mouth lymph node on axial image 52, unchanged from studies dating back to 11/10/2016. There is a 1.3 x 1.1 cm submental lymph node which is unchang ed compared to 06/27/2018 and 04/18/2018. However, this lymph node measured 5 mm in diameter 11/10/2016. MUCOSAL MASSES OR ASYMMETRY: No mucosal masses or asymmetry. LARYNX/CORDS: No abnormal findings. VASCULAR STRUCTURES: Patent bilateral carotid bifurcations. Chronically occluded right jugular vein, diffusely narrowed left jugular vein unchanged. . LUNG APICES: Clear. BONES: Intact. THYROID: Normal size. No masses. PARANASAL SINUSES: Clear. OTHER: No other significant finding. IMPRESSION: 1.3 x 1.1 cm right submental lymph node unchanged from June 2018 and studies from 201 8. This is larger than on 11/20/2016. Otherwise stable post therapeutic changes in the left floor of mouth/submandibular triangle TECHNICAL DOCUMENTATION: JOB ID: [id number] Quality ID # [id number]: Final reports with documentation of one or more dose reduction techniques (e.g., Au tomated exposure control, adjustment of the mA and/or kV according to patient size, use of iterative reconstruction technique) 2010 [employer]- All Rights Reserved Reading location - IP/workstation name: [email or web address]
--- NOTE | 2018-09-09 12:54 | RADIOLOGY REPORT (SQ) ---
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 TECHNIQUE: CT scan of the chest performed using helical scanning technique with dynamic intravenous contrast injection. Images reviewed with lung, soft tissue and bone windows. Reconstructed coronal a nd sagittal MPR images reviewed. All images stored on PACS. CT scan of the abdomen and pelvis performed with intravenous and without oral contrastusing helical s lauren technique with dynamic intravenous contrast injection. Images reviewed with lung, soft tissu e and bone windows. Reconstructed coronal and sagittal MPR images reviewed. Delayed images for eval uation of the urinary system also acquired and evaluated. All images stored on PACS. All CT scanners at this facility use dose modulation, iterative reconstruction, and/or weight based d osing when appropriate to reduce radiation dose to as low as reasonably achievable (ALARA). [facility]: Dose Right [facility]: CareDose [facility]: Dose Right [facility]: Teradose 4D [facility]: OSIX RADIATION DOSE: 13 mGy . LIMITATIONS: None. FINDINGS: CHEST: LUNGS AND PLEURA: No opacities, nodules, masses. No pneumothorax. No effusions. Stable pulmonary fi brosis at both bases. HILAR AND MEDIASTINAL STRUCTURES: No identified masses or abnormal nodes. HEART AND VASCULAR STRUCTURES: No aneurysm or dissection. No central pulmonary emboli. No pericardi al effusion. HARDWARE: Right-sided permanent central line tip superior vena cava. THYROID AND OTHER SOFT TISSUES: No masses. No adenopathy. BONES: No significant finding. OTHER: No other significant finding. ABDOMEN AND PELVIS: LIVER: Normal size. No masses. No dilated ducts. SPLEEN: Normal size. No focal lesions. PANCREAS: No masses. No significant calcifications. No adjacent inflammation or peripancreatic fluid collections. Pancreatic duct not dilated. GALLBLADDER: No calcified stones in the gallbladder. No gallbladder wall thickening or pericholecyst ic fluid. ADRENAL GLANDS: No significant masses or asymmetry. RIGHT KIDNEY AND URETER: No solid masses. No hydronephrosis or hydroureter. Right upper pole 1.4 cm calyx diverticulum containing a 3 mm stone. 1 cm right lower pole cyst. LEFT KIDNEY AND URETER: No solid masses. No significant calcification. No hydronephrosis or hydrouret er. AORTA AND VESSELS: No aneurysm. No dissection. Renal arteries, SMA, celiac without stenosis. RETROPERITONEUM: No retroperitoneal adenopathy, hemorrhage or masses. BOWEL AND PERITONEAL CAVITY: No CT evidence of bowel obstruction or free intraperitoneal air or fluid . Few colon diverticuli without CT signs of acute diverticulitis. Gastrostomy tube tip in the stoma ch. APPENDIX: Not identified. No right lower quadrant inflammatory change ABDOMINAL WALL: No masses. No hernias. PELVIS: No mass or free fluid. Normal bladder. Normal size female pelvic organs BONES: No significant or acute findings. OTHER: No other significant finding. IMPRESSION: No CT evidence of metastatic disease to the chest abdomen or pelvis given history of ton eleni base carcinoma TECHNICAL DOCUMENTATION: JOB ID: [id number] Quality ID # [id number]: Final reports with documentation of one or more dose reduction techniques (e.g., Au tomated exposure control, adjustment of the mA and/or kV according to patient size, use of iterative reconstruction technique) 2010 [employer]- All Rights Reserved Reading location - IP/workstation name: [email or web address]
== END ==
LOC: RAD 09:00
PROVIDERS: ATTEND Internal Medicine
DX: C01 Malignant neoplasm of base of tongue (principal)
CPT/HCPCS: 70491; 71260; 74177

== ENCOUNTER 2018-09-14 13:10 | Inpatient (IN) | payer OTHER ==
[2018-09-14] MEDS ORDERED: NORMAL SALINE 1000 ML 1,000 ML IV ONE (13:49)
[2018-09-14] MEDS ORDERED: ONDANSETRON HCL INJ/PF 4 MG/2 ML SDV IV ONE (13:55)
--- NOTE | 2018-09-14 13:55 | ER Document Report ---
ED Medical Screen (RME) - General Chief Complaint: Nausea/Vomiting Stated Complaint: FEVER Time Seen by Provider: 09/14/18 13:45 Primary Care Provider: KRISTYN SMITH MD [Primary Care Provider] - Follow up as needed TRAVEL OUTSIDE OF THE [place] IN LAST 30 DAYS: No - HPI Notes: 09/14/18 13:50 Patient is a 58-year-old female with a history of head, neck, tongue, breast cancer currently under chemotherapy treatments with the last 2 days ago who presents to the emergency department with nausea, vomiting, dry cough, pain between her shoulder blades, and intermittent shortness of breath with reported fever of 100.4 at home. Symptoms began sunday. She did not take any antipyretics and currently presents without fever but is tachycardic. No tachypnea or hypoxia. Denies MEDINA, CP, Abd pain, or rash. I have treated and performed a rapid initial assessment of this patient. A comprehensive ED assessment and evaluation of the patient, analysis of test results and completion of medical decision making process will be conducted by additional ED providers. PHYSICAL EXAMINATION: GENERAL: Well-appearing, well-nourished and in no acute distress. A&Ox4. Answers questions appropriately. LUNGS: Breath sounds clear to auscultation bilaterally and equal. Some hoarseness in the voice. HEART: Regular rate and rhythm without murmurs, rubs, gallops. Extremities: No cyanosis, clubbing, or edema b/l. NEUROLOGICAL: Normal speech, normal gait. PSYCH: Normal mood, normal affect. - Related Data Allergies/Adverse Reactions: aspirin Allergy (Verified 09/14/18 13:13) Past Medical History - Past Medical History Cardiac Medical History: Reports: Hx Hypertension Denies: Hx Coronary Artery Disease, Hx Heart Attack Pulmonary Medical History: Reports: Hx Asthma Denies: Hx Bronchitis, Hx COPD, Hx Pneumonia Neurological Medical History: Denies: Hx Cerebrovascular Accident, Hx Seizures Renal/ Medical History: Denies: Hx Peritoneal Dialysis Musculoskeltal Medical History: Reports Hx Arthritis Past Surgical History: Reports: Hx Abdominal Surgery - PEG tube, Hx Breast Surgery - lumpectomy, Hx Gynecologic Surgery - 1 fallopian tube removed, Hx Oral Surgery - throat surgery - Immunizations Hx Diphtheria, Pertussis, Tetanus Vaccination: No History of Influenza Vaccine for 03/2017 - 08/2017 Season: Refused Physical Exam - Vital signs Vitals: Temp Pulse Resp BP Pulse Ox 99.4 F 121 H 18 126/66 H 94 09/14/18 13:26 09/14/18 13:26 09/14/18 13:26 09/14/18 13:26 09/14/18 13:26 Course - Vital Signs Vital signs: Temp Pulse Resp BP Pulse Ox 99.4 F 121 H 18 126/66 H 94 09/14/18 13:26 09/14/18 13:26 09/14/18 13:26 09/14/18 13:26 09/14/18 13:26 Doctor's Discharge - Discharge Referrals: KRISTYN SMITH MD [Primary Care Provider] - Follow up as needed
--- NOTE | 2018-09-14 14:31 | ER Document Report ---
ED General - General Chief Complaint: Nausea/Vomiting Stated Complaint: FEVER Time Seen by Provider: 09/14/18 13:45 Notes: 58-year-old female patient emergency department chief complaint of pain between her shoulder blades and low-grade fever at home. Patient has history of head and neck cancer. On chemotherapy. Multiple surgeries. Followed by . Symptoms began approximately 1 day ago. Increased cough. Just generally feeling ill. Currently on Erbitux TRAVEL OUTSIDE OF THE [place] IN LAST 30 DAYS: No - HPI Onset: Yesterday Onset/Duration: Gradual, Worse Quality of pain: Sharp Severity: Moderate Pain Level: 3 Associated symptoms: Fever - Related Data Allergies/Adverse Reactions: aspirin Allergy (Verified 09/14/18 13:13) Past Medical History - General Information source: Patient - Social History Smoking Status: Current Every Day Smoker Cigarette use (# per day): Yes Frequency of alcohol use: None Drug Abuse: None Lives with: Family Family History: Reviewed & Not Pertinent Patient has suicidal ideation: No Patient has homicidal ideation: No - Past Medical History Cardiac Medical History: Reports: Hx Hypertension Denies: Hx Coronary Artery Disease, Hx Heart Attack Pulmonary Medical History: Reports: Hx Asthma Denies: Hx Bronchitis, Hx COPD, Hx Pneumonia Neurological Medical History: Denies: Hx Cerebrovascular Accident, Hx Seizures Renal/ Medical History: Denies: Hx Peritoneal Dialysis Musculoskeletal Medical History: Reports Hx Arthritis Past Surgical History: Reports: Hx Abdominal Surgery - PEG tube, Hx Breast Surgery - lumpectomy, Hx Gynecologic Surgery - 1 fallopian tube removed, Hx Oral Surgery - throat surgery - Immunizations Hx Diphtheria, Pertussis, Tetanus Vaccination: No Review of Systems - Review of Systems Notes: Constitutional: denies: Chills, Diaphoresis,+ Fever,+ Malaise, +Weakness EENT: denies: Eye discharge, Blurred vision, Tearing, Double vision, Nose congestion, Nose discharge,. Throat cancer and issues surrounding that. Cardiovascular: denies: Palpitations, Heart racing, Orthopnea, Dyspnea, positive for posterior chest pain Respiratory: Complaining of a cough, congestion, pain with deep inspiration. Frequent pneumonia. Does have a history of blood clots in the upper extremity. Gastrointestinal: denies: Abdominal pain, Diarrhea, Nausea, Vomiting, Black stools, bright red blood in stool Genitourinary: denies: Burning, Dysuria, Discharge, Frequency, Flank pain, Hematuria Musculoskeletal: denies: Joint pain, Joint swelling, Muscle pain, Muscle stiffness, back pain Hematologic/Lymphatic: denies: Anemia, Easy bleeding, Easy bruising, Blood clots Neurological/Psychological: denies: Confusion, Dementia, Depression, Loss of consciousness Skin: No lesions, no masses, no skin breakdown, no abscesses Physical Exam - Vital signs Vitals: Temp Pulse Resp BP Pulse Ox 99.4 F 121 H 18 126/66 H 94 09/14/18 13:26 09/14/18 13:26 09/14/18 13:26 09/14/18 13:26 09/14/18 13:26 Interpretation: Tachycardic - General General appearance: Appears well, Alert - HEENT Head: Normocephalic, Atraumatic Eyes: Normal Pupils: PERRL Notes: Patient has findings consistent with partial tongue resection, hoarse voice, scars on the right side of the neck and face. - Respiratory Respiratory status: No respiratory distress Chest status: Nontender Breath sounds: Nonproductive cough, Rales - On the right Chest palpation: Normal - Cardiovascular Rhythm: Regular Heart sounds: Normal auscultation Murmur: No - Abdominal Inspection: Normal Distension: No distension Bowel sounds: Normal Tenderness: Nontender Organomegaly: No organomegaly - Back Back: Normal, Nontender - Extremities General upper extremity: Normal inspection, Nontender, Normal color, Normal ROM, Normal temperature General lower extremity: Normal inspection, Nontender, Normal color, Normal ROM, Normal temperature, Normal weight bearing. No: Jaja's sign - Neurological Neuro grossly intact: Yes Cognition: Normal Orientation: AAOx4 Mary Coma Scale Eye Opening: Spontaneous Mary Coma Scale Verbal: Oriented Mary Coma Scale Motor: Obeys Commands [place] Coma Scale Total: 15 Speech: Normal Motor strength normal: LUE, RUE, LLE, RLE Sensory: Normal - Psychological Associated symptoms: Normal affect, Normal mood - Skin Skin Temperature: Warm Skin Moisture: Dry Skin Color: Normal Course - Re-evaluation Re-evalutation: 09/14/18 17:19 Laboratory 09/14/18 09/14/18 09/14/18 14:01 15:05 15:05 WBC 4.6 RBC 2.77 L Hgb 9.0 L Hct 27.1 L MCV 98 H MCH 32.6 MCHC 33.3 RDW 15.8 H Plt Count 156 Total Counted 100 Seg Neutrophils % Not Reportable Seg Neuts % (Manual) 59 Band Neutrophils % 7 H Lymphocytes % Not Reportable Lymphocytes % (Manual) 19 Monocytes % Not Reportable Monocytes % (Manual) 15 H Eosinophils % Not Reportable Eosinophils % (Manual) 0 Basophils % Not Reportable Basophils % (Manual) 0 Absolute Neutrophils Not Reportable Abs Neuts (Manual) 3.0 Absolute Lymphocytes Not Reportable Abs Lymphs (Manual) 0.9 Absolute Monocytes Not Reportable Abs Monocytes (Manual) 0.7 Absolute Eosinophils Not Reportable Absolute Eos (Manual) 0.0 Absolute Basophils Not Reportable Abs Basophils (Manual) 0.0 Platelet Comment ADEQUATE Polychromasia SLIGHT Anisocytosis SLIGHT PT 13.6 INR 0.99 VBG pH VBG pCO2 VBG HCO3 VBG Base Excess Sodium Potassium Chloride Carbon Dioxide Anion Gap BUN Creatinine Est GFR ( Amer) Est GFR (Non-Af Amer) Glucose Lactic Acid Calcium Total Bilirubin Direct Bilirubin Neonat Total Bilirubin Neonat Direct Bilirubin Neonat Indirect Bili AST ALT Alkaline Phosphatase Troponin I NT-Pro-B Natriuret Pep Total Protein Albumin Lipase Urine Color YELLOW Urine Appearance SLIGHTLY-CLOUDY Urine pH 8.0 Ur Specific Wilder 1.017 Urine Protein 30 H Urine Glucose (UA) NEGATIVE Urine Ketones NEGATIVE Urine Blood MODERATE H Urine Nitrite NEGATIVE Urine Bilirubin NEGATIVE Urine Urobilinogen NEGATIVE Ur Leukocyte Esterase SMALL H Urine WBC (Auto) 31 Urine RBC (Auto) 38 Squamous Epi Cells Auto 1 Urine Mucus (Auto) RARE Urine Ascorbic Acid NEGATIVE 09/14/18 09/14/18 09/14/18 15:05 15:05 15:05 WBC RBC Hgb Hct MCV MCH MCHC RDW Plt Count Total Counted Seg Neutrophils % Seg Neuts % (Manual) Band Neutrophils % Lymphocytes % Lymphocytes % (Manual) Monocytes % Monocytes % (Manual) Eosinophils % Eosinophils % (Manual) Basophils % Basophils % (Manual) Absolute Neutrophils Abs Neuts (Manual) Absolute Lymphocytes Abs Lymphs (Manual) Absolute Monocytes Abs Monocytes (Manual) Absolute Eosinophils Absolute Eos (Manual) Absolute Basophils Abs Basophils (Manual) Platelet Comment Polychromasia Anisocytosis PT INR VBG pH 7.38 VBG pCO2 56.4 VBG HCO3 32.5 H VBG Base Excess 6.0 Sodium 136.0 L Potassium 4.0 Chloride 98 Carbon Dioxide 28 Anion Gap 10 BUN 11 Creatinine 0.57 Est GFR ( Amer) > 60 Est GFR (Non-Af Amer) > 60 Glucose 103 Lactic Acid 1.2 Calcium 9.5 Total Bilirubin 0.6 Direct Bilirubin 0.2 Neonat Total Bilirubin Not Reportable Neonat Direct Bilirubin Not Reportable Neonat Indirect Bili Not Reportable AST 28 ALT 23 Alkaline Phosphatase 101 Troponin I NT-Pro-B Natriuret Pep Total Protein 8.0 Albumin 3.9 Lipase 76.4 Urine Color Urine Appearance Urine pH Ur Specific Wilder Urine Protein Urine Glucose (UA) Urine Ketones Urine Blood Urine Nitrite Urine Bilirubin Urine Urobilinogen Ur Leukocyte Esterase Urine WBC (Auto) Urine RBC (Auto) Squamous Epi Cells Auto Urine Mucus (Auto) Urine Ascorbic Acid 09/14/18 15:05 WBC RBC Hgb Hct MCV MCH MCHC RDW Plt Count Total Counted Seg Neutrophils % Seg Neuts % (Manual) Band Neutrophils % Lymphocytes % Lymphocytes % (Manual) Monocytes % Monocytes % (Manual) Eosinophils % Eosinophils % (Manual) Basophils % Basophils % (Manual) Absolute Neutrophils Abs Neuts (Manual) Absolute Lymphocytes Abs Lymphs (Manual) Absolute Monocytes Abs Monocytes (Manual) Absolute Eosinophils Absolute Eos (Manual) Absolute Basophils Abs Basophils (Manual) Platelet Comment Polychromasia Anisocytosis PT INR VBG pH VBG pCO2 VBG HCO3 VBG Base Excess Sodium Potassium Chloride Carbon Dioxide Anion Gap BUN Creatinine Est GFR ( Amer) Est GFR (Non-Af Amer) Glucose Lactic Acid Calcium Total Bilirubin Direct Bilirubin Neonat Total Bilirubin Neonat Direct Bilirubin Neonat Indirect Bili AST ALT Alkaline Phosphatase Troponin I < 0.012 NT-Pro-B Natriuret Pep 149 Total Protein Albumin Lipase Urine Color Urine Appearance Urine pH Ur Specific Wilder Urine Protein Urine Glucose (UA) Urine Ketones Urine Blood Urine Nitrite Urine Bilirubin Urine Urobilinogen Ur Leukocyte Esterase Urine WBC (Auto) Urine RBC (Auto) Squamous Epi Cells Auto Urine Mucus (Auto) Urine Ascorbic Acid Chest X-Ray 09/14/18 13:49 IMPRESSION: Improved right lung opacities, suggestive of improving pneumonia. Chest/Abdomen CTA 09/14/18 15:01 IMPRESSION: 1. No pulmonary embolus. 2. Moderately worsened multifocal consolidations of the right upper lobe and new small ground-glass opacities of the left upper lobe. Given the short time period, pneumonia is favored. Recommend continued follow-up to resolution. 3. Right hilar and mediastinal adenopathy, as above, slightly worse since prior. Likely reactive. 09/14/18 17:45 Currently patient looks to have a pneumonia in both the upper lobes. Consulted with the rheumatologist, Dr. Warner, recommends azithromycin and Rocephin. Her blood pressure is a little low and her heart rate is still elevated so favor admission at this time. Patient is comfortable with this plan. Will admit to the hospitalist, Dr. Richardson in stable condition. - Vital Signs Vital signs: Temp Pulse Resp BP Pulse Ox 99.4 F 121 H 29 H 101/66 93 09/14/18 13:26 09/14/18 13:26 09/14/18 17:01 09/14/18 17:01 09/14/18 17:01 - Laboratory Result Diagrams: 09/14/18 15:05 09/14/18 15:05 Laboratory results interpreted by me: 09/14/18 09/14/18 09/14/18 14:01 15:05 15:05 RBC 2.77 L Hgb 9.0 L Hct 27.1 L MCV 98 H RDW 15.8 H Band Neutrophils % 7 H Monocytes % (Manual) 15 H VBG HCO3 Sodium 136.0 L Urine Protein 30 H Urine Blood MODERATE H Ur Leukocyte Esterase SMALL H 09/14/18 15:05 RBC Hgb Hct MCV RDW Band Neutrophils % Monocytes % (Manual) VBG HCO3 32.5 H Sodium Urine Protein Urine Blood Ur Leukocyte Esterase - EKG Interpretation by Me EKG shows normal: [place], Intervals, QRS Complexes, ST-T Waves Rate: Tachycardia Critical Care Note - Critical Care Note Total time excluding time spent on procedures (mins): 60 Comments: Tachycardia, hypotension, consultation with specialist, Discharge - Discharge Clinical Impression: Pneumonia of both upper lobes Qualifiers: Pneumonia type: due to unspecified organism Qualified Code(s): J18.1 - Lobar pneumonia, unspecified organism Condition: Good Disposition: ADMITTED INPATIENT Admitting Provider: Juan (Hospitalist) Unit Admitted: [facility]
[2018-09-14 14:34] LABS: APPEARANCE,URINE SLIGHTLY-CLOUDY; BILIRUBIN,URINE NEGATIVE (NEGATIVE); COLOR,URINE YELLOW; GLUCOSE, URINE NEGATIVE (NEGATIVE); KETONES,URINE NEGATIVE (NEGATIVE); LEUKOCYTE ESTERASE,URINE SMALL (NEGATIVE); NITRITE,URINE NEGATIVE (NEGATIVE); PROTEIN,URINE 30 mg/dL (NEGATIVE); URINE SPECIFIC GRAVITY 1.017; UROBILINOGEN,URINE NEGATIVE mg/dL (<2.0)
[2018-09-14] MEDS ORDERED: NORFLURANE/PENTAFLUOROPROPANE 30 ML SPRAY TP ONE (14:34)
[2018-09-14] MEDS ORDERED: ALBUTEROL SULFATE 0.083% NEB 2.5 MG/3 ML AMPUL NEB ONE (14:49)
--- NOTE | 2018-09-14 14:49 | RADIOLOGY REPORT (SQ) ---
EXAM DESCRIPTION: CHEST 2 VIEWS COMPLETED DATE/TIME: 09/14/2018 2:29 pm REASON FOR STUDY: cough, sob, pain COMPARISON: 07/19/2018 and earlier EXAM PARAMETERS: NUMBER OF VIEWS: two views TECHNIQUE: Digital Frontal and Lateral radiographic views of the chest acquired. RADIATION DOSE: NA LIMITATIONS: none FINDINGS: LUNGS AND PLEURA: Right lung opacities, slightly improved from prior. Unchanged linear at electasis versus fibrosis of the left lung base. No new airspace opacities. No pleural effusion or pneumothorax. MEDIASTINUM AND HILAR STRUCTURES: No masses or contour abnormalities. HEART AND VASCULAR STRUCTURES: Heart normal size. No evidence for failure. BONES: No acute findings. HARDWARE: Unchanged positioning of the right-sided chest port. OTHER: No other significant finding. IMPRESSION: Improved right lung opacities, suggestive of improving pneumonia. TECHNICAL DOCUMENTATION: JOB ID: [id number] [employer]- All Rights Reserved Reading location - IP/workstation name: [email or web address]
[2018-09-14 15:48] LABS: HEMATOCRIT 27.1 % (36.0-47.0); MEAN CORPUSCULAR HEMOGLOBIN 32.6 pg (27.0-33.4); MEAN CORPUSCULAR HGB CONC 33.3 g/dL (32.0-36.0); MEAN CORPUSCULAR VOLUME 98 fl (80-97); PLATELET COUNT 156 10^3/uL (150-450); RED BLOOD COUNT 2.77 10^6/uL (3.72-5.28); RED CELL DISTRIBUTION WIDTH 15.8 % (11.5-14.0); WHITE BLOOD COUNT 4.6 10^3/uL (4.0-10.5)
[2018-09-14 15:53] LABS: VENOUS BLOOD HCO3 32.5 mmol/L (20-32); VENOUS BLOOD PCO2 56.4 mmHg (35-63); VENOUS BLOOD PH 7.38 (7.30-7.42)
[2018-09-14 15:55] LABS: INTERNATIONAL RATION (INR) 0.99; PROTHROMBIN TIME 13.6 SEC (11.4-15.4)
--- NOTE | 2018-09-14 16:02 | EKG REPORT ---
SEVERITY:- ABNORMAL ECG - SINUS TACHYCARDIA PROBABLE INFERIOR INFARCT, AGE INDETERMINATE : Confirmed by: Saroj Villavicencio MD 14-Sep-2018 16:02:19
[2018-09-14 16:05] LABS: ALANINE AMINOTRANSFERASE 23 U/L (9-52); ALBUMIN 3.9 g/dL (3.5-5.0); ALKALINE PHOSPHATASE 101 U/L (38-126); ANION GAP 10 (5-19); ASPARTATE AMINO TRANSFERASE 28 U/L (14-36); BILIRUBIN,DIRECT 0.2 mg/dL (0.0-0.4); BILIRUBIN,TOTAL 0.6 mg/dL (0.2-1.3); BLOOD UREA NITROGEN 11 mg/dL (7-20); CALCIUM 9.5 mg/dL (8.4-10.2); CARBON DIOXIDE 28 mmol/L (22-30); CHLORIDE 98 mmol/L (98-107); GLUCOSE 103 mg/dL (75-110); LIPASE 76.4 U/L (23-300)
[2018-09-14 16:08] LABS: ABSOLUTE LYMPHOCYTES# (MANUAL) 0.9 10^3/uL (0.5-4.7); ABSOLUTE MONOCYTES # (MANUAL) 0.7 10^3/uL (0.1-1.4); BAND NEUTROPHILS % (MANUAL) 7 % (3-5); BASOPHILS % (MANUAL) 0 % (0-2); EOSINOPHILS % (MANUAL) 0 % (0-6); LYMPHOCYTES % (MANUAL) 19 % (13-45); MONOCYTES % (MANUAL) 15 % (3-13); SEGMENTED NEUTROPHILS % (MAN) 59 % (42-78); TOTAL CELLS COUNTED 100
[2018-09-14 16:09] LABS: POLYCHROMASIA SLIGHT
[2018-09-14 16:10] LABS: ANISOCYTOSIS SLIGHT; PLATELET COMMENT ADEQUATE
[2018-09-14 16:15] LABS: NT PRO BNP 149 pg/mL (5-900)
[2018-09-14 16:16] LABS: TROPONIN I < 0.012 ng/mL
[2018-09-14] MEDS ORDERED: AZITHROMYCIN INJ 500 MG VIAL IV ONE (16:37)
[2018-09-14] MEDS ORDERED: CEFTRIAXONE 1 GM/D5W RTU 1 GM/50 ML RTUPB IV ONE (16:37)
--- NOTE | 2018-09-14 16:56 | RADIOLOGY REPORT (SQ) ---
EXAM DESCRIPTION: CTA CHEST COMPLETED DATE/TIME: 09/14/2018 4:26 pm REASON FOR STUDY: chest pain, hx of clots and malignancy COMPARISON: Same day chest radiograph and earlier TECHNIQUE: CT scan of the chest performed using helical scanning technique with dynamic intravenous contrast injection. Images reviewed with lung, soft tissue and bone windows. Reconstructed coronal and sagittal MPR images reviewed. Additional 3 dimensional post-processing performed to develop Maximal Intensity Projection images (MN P). All images stored on PACS. All CT scanners at this facility use dose modulation, iterative reconstruction, and/or weight based d osing when appropriate to reduce radiation dose to as low as reasonably achievable (ALARA). [facility]: Dose Right [facility]: CareDose [facility]: Dose Right [facility]: Teradose 4D [facility]: Interventional Imaging CONTRAST TYPE AND DOSE: contrast/concentration: Isovue 350.00 mg/ml; Total Contrast Delivered: 66.0 ml; Total Saline Delivered: 106.0 ml 66 mL IV of Omnipaque 350- low osmolar. Contrast bolus adequate for pulmonary arteries and aorta. RENAL FUNCTION: BUN 11 creatinine 0.57 RADIATION DOSE: CT Rad equipment meets quality standard of care and radiation dose reduction techniq ues were employed. CTDIvol: 14.3 - 19.8 mGy. DLP: 504 mGy-cm. . LIMITATIONS: None. FINDINGS: LUNGS AND PLEURA: When compared to CT chest of 09/09/2018, moderately worsened multifocal co nsolidations of the right upper lobe with associated ground-glass opacities. New small peripheral gr ound-glass opacities of the lateral left lung. Similar-appearing increased reticular markings with a ssociated bronchiectasis of both lower lobes. No pleural effusion or pneumothorax. AORTA AND GREAT VESSELS: No aneurysm. No dissection. HEART: No pericardial effusion. No significant coronary artery calcifications. PULMONARY ARTERIES: No emboli visualized in the main pulmonary arteries or the segmental branches. HILAR AND MEDIASTINAL STRUCTURES: Coarsened right hilar lymphadenopathy measuring 2.6 x 1.6 cm. Prev iously measured 1.7 x 1.4 cm. Enlarged precarinal lymph node measuring 1.2 cm. HARDWARE: Right-sided chest port tip terminates just proximal to the cavoatrial junction. UPPER ABDOMEN: Visualized upper abdomen is unchanged when compared to CT of 09/09/2018. THYROID AND OTHER SOFT TISSUES: No masses. No adenopathy. BONES: No acute or significant finding. 3D MIPS: Confirm above findings. OTHER: No other significant finding. IMPRESSION: 1. No pulmonary embolus. 2. Moderately worsened multifocal consolidations of the right upper lobe and new small ground-glass o pacities of the left upper lobe. Given the short time period, pneumonia is favored. Recommend shanta nued follow-up to resolution. 3. Right hilar and mediastinal adenopathy, as above, slightly worse since prior. Likely reactive. COMMENT: Quality ID # [id number]: Final reports with documentation of one or more dose reduction techniques (e.g., Automated exposure control, adjustment of the mA and/or kV according to patient size, use of iterative reconstruction technique) TECHNICAL DOCUMENTATION: JOB ID: [id number] [employer]- All Rights Reserved Reading location - IP/workstation name: [email or web address]
[2018-09-14] MEDS ORDERED: SCOPOLAMINE HYDROBROMIDE 1.5 MG PATCH.TD72 TD SCH (18:00)
[2018-09-14] MEDS ORDERED: LEVALBUTEROL HCL NEB 0.63 MG/3 ML AMPUL NEB PRN (18:10)
[2018-09-14] MEDS ORDERED: OXYCODONE-ACETAMINOPHEN 5-325 MG TABLET PO PRN (18:10)
[2018-09-14] MEDS ORDERED: ACETAMINOPHEN 325 MG TABLET PO PRN (18:10)
--- NOTE | 2018-09-14 18:38 | PDOC H&P ---
History of Present Illness Admission Date/PCP: 09/14/18 17:53 MARYJO SMITH NP Patient complains of: Low-grade fever and pain between the shoulder blades of 1 day duration History of Present Illness: ELIAZAR NEGRETE is a 58 year old female with history of breast cancer, head and neck cancer on chemotherapy, chronic pain syndrome, hypertension came to the emergency room with complaints of pain between the shoulder blades associated with low-grade fever from this morning. Decided to came to the emergency room for further evaluation. Patient is currently on Erbitux. Workup was done in the emergency room CT chest was done PE is ruled out but found to have a bilateral small consolidations representing pneumonia. Patient also has a low- grade fever of 99.4. Patient denies any vomiting's except for nausea which was chronic denies any diarrhea but complains of constipation last bowel movement 3 days ago. Complaining of dry heaves and dry cough. Denies any chest pains. Complaining of headaches which was chronic. Case was discussed by the ER physi sumi with Dr. varela she agreed for placement here for further management. Medical consult was called for admission. Past Medical History Cardiac Medical History: Reports: Hypertension Denies: Coronary Artery Disease, Myocardial Infarction Pulmonary Medical History: Reports: Asthma Denies: Bronchitis, Chronic Obstructive Pulmonary Disease (COPD), Pneumonia Neurological Medical History: Denies: Seizures Malignancy Medical History: Reports: Other - History of breast cancer and neck and head cancer. Musculoskeltal Medical History: Reports: Arthritis Hematology: Reports: Anemia, Bleeding Tendencies Past Surgical History Past Surgical History: Reports: Other - History of port placement oral surgery for neck cancer. Lymph node removal Social History Lives with: Family Smoking Status: Current Every Day Smoker Frequency of Alcohol Use: None Hx Recreational Drug Use: No Drugs: None Hx Prescription Drug Abuse: No - Advance Directive Resuscitation Status: Full Code Family History Family History: Reviewed & Not Pertinent Parental Family History Reviewed: Yes - Family history of hypertension heart disease. Brother has history of prost Children Family History Reviewed: Yes Sibling(s) Family History Reviewed.: Yes Medication/Allergy Home Medications: Fentanyl [Duragesic 25 mcg/hr Transdermal Patch] 25 mcg TD Q3D 07/19/18 Hydrocodone Bit/Acetaminophen [Hydrocodone-Acetaminophen Soln] 15 ml PO Q6HP PRN 07/19/18 Lorazepam [Ativan 0.5 mg Tablet] 0.25 mg PO DAILY 07/19/18 Ondansetron HCl [Zofran 4 mg/5 ml Oral Soln] 5 ml PO DAILY 07/19/18 Scopolamine 1 patch TD Q3D 07/19/18 Levofloxacin [Levaquin 750 mg Tablet] 750 mg PO DAILY #4 tablet 07/25/18 Allergies/Adverse Reactions: aspirin Allergy (Verified 09/14/18 13:13) Review of Systems Constitutional: PRESENT: fatigue, fever(s), headache(s), weakness Eyes: ABSENT: visual disturbances Ears: ABSENT: hearing changes Nose, Mouth, and Throat: ABSENT: sore throat Cardiovascular: PRESENT: palpitations. ABSENT: chest pain, dyspnea on exertion Respiratory: PRESENT: cough. ABSENT: dyspnea Gastrointestinal: PRESENT: nausea. ABSENT: abdominal pain, diarrhea, heartburn, vomiting Musculoskeletal: PRESENT: other - Pain between the shoulder blades. Neurological: ABSENT: abnormal gait, abnormal speech, confusion, dizziness, focal weakness, syncope Psychiatric: ABSENT: anxiety, depression, homidical ideation, suicidal ideation Physical Exam Vital Signs: Temp Pulse Resp BP Pulse Ox 99.4 F 121 H 29 H 101/66 93 09/14/18 13:26 09/14/18 13:26 09/14/18 17:01 09/14/18 17:01 09/14/18 17:01 Intake & Output 09/13/18 09/14/18 09/15/18 06:59 06:59 06:59 Intake Total 1000 Balance 1000 Weight 59.9 kg General appearance: PRESENT: mild distress, well-developed Head exam: PRESENT: atraumatic Eye exam: PRESENT: PERRLA Mouth exam: PRESENT: moist Neck exam: ABSENT: carotid bruit, JVD, lymphadenopathy, thyromegaly Respiratory exam: PRESENT: decreased breath sounds Cardiovascular exam: PRESENT: tachycardia GI/Abdominal exam: PRESENT: normal bowel sounds, soft. ABSENT: distended, guarding, mass, organolmegaly, rebound, tenderness Extremities exam: PRESENT: full ROM. ABSENT: calf tenderness, clubbing, pedal edema Neurological exam: PRESENT: alert, awake, oriented to person, oriented to place, oriented to time, oriented to situation, CN II-XII grossly intact. ABSENT: motor sensory deficit Psychiatric exam: PRESENT: appropriate affect, normal mood. ABSENT: homicidal ideation, suicidal ideation Results Laboratory Results: 09/14/18 15:05 09/14/18 15:05 09/14/18 09/14/18 09/14/18 14:01 15:05 15:05 WBC 4.6 RBC 2.77 L Hgb 9.0 L Hct 27.1 L MCV 98 H MCH 32.6 MCHC 33.3 RDW 15.8 H Plt Count 156 Seg Neutrophils % Not Reportable Lymphocytes % Not Reportable Monocytes % Not Reportable Eosinophils % Not Reportable Basophils % Not Reportable Absolute Neutrophils Not Reportable Absolute Lymphocytes Not Reportable Absolute Monocytes Not Reportable Absolute Eosinophils Not Reportable Absolute Basophils Not Reportable VBG pH VBG pCO2 VBG HCO3 VBG Base Excess Sodium 136.0 L Potassium 4.0 Chloride 98 Carbon Dioxide 28 Anion Gap 10 BUN 11 Creatinine 0.57 Est GFR ( Amer) > 60 Est GFR (Non-Af Amer) > 60 Glucose 103 Lactic Acid Calcium 9.5 Total Bilirubin 0.6 AST 28 ALT 23 Alkaline Phosphatase 101 Total Protein 8.0 Albumin 3.9 Lipase 76.4 Urine Color YELLOW Urine Appearance SLIGHTLY-CLOUDY Urine pH 8.0 Ur Specific [place] 1.017 Urine Protein 30 H Urine Glucose (UA) NEGATIVE Urine Ketones NEGATIVE Urine Blood MODERATE H Urine Nitrite NEGATIVE Ur Leukocyte Esterase SMALL H Urine WBC (Auto) 31 Urine RBC (Auto) 38 09/14/18 09/14/18 15:05 15:05 WBC RBC Hgb Hct MCV MCH MCHC RDW Plt Count Seg Neutrophils % Lymphocytes % Monocytes % Eosinophils % Basophils % Absolute Neutrophils Absolute Lymphocytes Absolute Monocytes Absolute Eosinophils Absolute Basophils VBG pH 7.38 VBG pCO2 56.4 VBG HCO3 32.5 H VBG Base Excess 6.0 Sodium Potassium Chloride Carbon Dioxide Anion Gap BUN Creatinine Est GFR ( Amer) Est GFR (Non-Af Amer) Glucose Lactic Acid 1.2 Calcium Total Bilirubin AST ALT Alkaline Phosphatase Total Protein Albumin Lipase Urine Color Urine Appearance Urine pH Ur Specific [place] Urine Protein Urine Glucose (UA) Urine Ketones Urine Blood Urine Nitrite Ur Leukocyte Esterase Urine WBC (Auto) Urine RBC (Auto) 09/14/18 15:05 Troponin I < 0.012 NT-Pro-B Natriuret Pep 149 Impressions: Chest X-Ray 09/14/18 13:49 IMPRESSION: Improved right lung opacities, suggestive of improving pneumonia. Chest/Abdomen CTA 04/06/19 15:01 IMPRESSION: 1. No pulmonary embolus. 2. Moderately worsened multifocal consolidations of the right upper lobe and new small ground-glass opacities of the left upper lobe. Given the short time perio d, pneumonia is favored. Recommend continued follow-up to resolution. 3. Right hilar and mediastinal adenopathy, as above, slightly worse since prior. Likely reactive. Assessment and Plan - Diagnosis (1) Pneumonia of both upper lobes Qualifiers: Pneumonia type: due to unspecified organism Qualified Code(s): J18.1 - Lobar pneumonia, unspecified organism Is this a current diagnosis for this admission?: Yes Plan: 09/14/2018-patient is admitted for multifocal consolidations of the right upper lobe and a new small groundglass opacities in the left upper lobe. Started on ceftriaxone and levofloxacin. Blood cultures sputum cultures urine cultures are requested. Repeat lactic acid level was requested initial lactic acid level is 1.7. Sepsis protocol was implemented started on IV fluids normal saline at 75 cc/h. GI and DVT prophylaxis was provided. Started on Xopenex nebulizations every 4 as needed. pt Was placed on oxygen 2 L nasal cannula. (2) Breast cancer Qualifiers: Breast location: unspecified site of breast Estrogen receptor status: unsp ecified Patient sex: female Laterality: unspecified laterality Qualified Code(s): C50.919 - Malignant neoplasm of unspecified site of unspecified female breast Is this a current diagnosis for this admission?: No Plan: Patient has a history of breast cancer follows with Dr. Calle as an outpatient. Patient receiving chemotherapy ERBITUX consult was placed for Dr. Clark. (3) SIRS (systemic inflammatory response syndrome) Is this a current diagnosis for this admission?: Yes Plan: 09/14/2018 patient came in with low-grade fever tachycardic heart rate in the 110s blood pressure is 100/60 respiratory rate of 29. Meeting the criteria for Sirs. She lactic acid level is normal. Chest x-ray shows bilateral consolidations in the upper lobes. (4) Anemia Is this a current diagnosis for this admission?: No Plan: 09/14/2018 patient's hemoglobin is 9.0. Patient has anemia of chronic disease most likely secondary to breast cancer. Patient's baseline hemoglobin is between 8- 9. Plan is to check the labs on daily basis. (5) Tachycardia Is this a current diagnosis for this admission?: Yes Plan: 09/14/2018 patient heart rate is around 110 tachycardic most likely secondary to underlying pneumonia. (6) Chronic pain syndrome Is this a current diagnosis for this admission?: No Plan: 09/14/2018-patient may have a chronic pain syndrome she is on fentanyl patch and oxycodone at home plan is to resume those medications during the hospital stay. (7) Tobacco abuse Is this a current diagnosis for this admission?: No Plan: 09/14/2018 patient has history of chronic smoking smokes at least a half a pack per day. Smoking counseling was provided for more than 10 minutes to start on nicotine patch 21 mcg daily. - Time Time Spent with patient: 25-34 minutes Smoking Cessation Education: over 10 minutes Medications reviewed and adjusted accordingly: Yes Anticipated discharge: Home
--- NOTE | 2018-09-14 18:40 | ADVANCED CARE ---
- Diagnosis (1) Pneumonia of both upper lobes Diagnosis Current: Yes (2) Breast cancer Diagnosis Current: No (3) SIRS (systemic inflammatory response syndrome) Diagnosis Current: Yes (4) Anemia Diagnosis Current: No (5) Tachycardia Diagnosis Current: Yes (6) Chronic pain syndrome Diagnosis Current: No (7) Tobacco abuse Diagnosis Current: No Attendance: Patient's mom and daughter at bedside. Resuscitation Status: Full Code Discussion: Discussed the plan of care hernia and treatment of PNEUMONIA breast cancer and head and neck cancer. Explained in detail the plan of care to the patient and the family. Also told him Dr. Clark will be here as an oncologist. pt is expressing desire to be full code. Care Planning Goals: Care plan is discussed with the patient and family. Document(s) Completed: Patient does not have a living will. wants To be a full code. Time Spent: 20
[2018-09-14] MEDS ORDERED: DOCUSATE SODIUM 100 MG/10 ML UDC PO ONE (19:30)
[2018-09-14] MEDS: NORMAL SALINE 1000 ML 1,000 ML IV PRN (20:08)
[2018-09-14] MEDS ORDERED: ACETAMINOPHEN 325 MG TABLET PEG PRN (21:00)
[2018-09-14] MEDS ORDERED: OXYCODONE-ACETAMINOPHEN 5-325 MG TABLET PEG PRN (21:00)
[2018-09-14] MEDS ORDERED: SCOPOLAMINE HYDROBROMIDE 1.5 MG PATCH.TD72 ONE (21:06)
--- NOTE | 2018-09-14 21:12 | EKG REPORT ---
SEVERITY:- ABNORMAL ECG - SINUS TACHYCARDIA INFERIOR INFARCT, AGE INDETERMINATE : Confirmed by: Saroj Villavicencio MD 14-Sep-2018 21:10:57
[2018-09-14] MEDS: GUAIFENESIN SYRP 200 MG/10 ML UDC PEG PRN (21:17)
[2018-09-14] MEDS: LEVOFLOXACIN 750 MG/D5W RTU 750 MG/150 ML RTUPB IV SCH (21:17)
[2018-09-14] MEDS: FAMOTIDINE 20 MG TABLET PEG SCH (21:18)
[2018-09-14 21:48] LABS: CREATINE KINASE MB 0.39 ng/mL (<4.55)
[2018-09-14 21:49] LABS: TROPONIN I < 0.012 ng/mL
[2018-09-14] MEDS ORDERED: FENTANYL 25 MCG/HR PATCH.TD72 TD SCH (22:00)
[2018-09-15] MEDS: GUAIFENESIN SYRP 200 MG/10 ML UDC PEG PRN ×3 (01:20→19:37)
[2018-09-15 03:37] LABS: ABSOLUTE LYMPHOCYTES (AUTO) 0.9 10^3/uL (0.5-4.7); ABSOLUTE MONOCYTES (AUTO) 0.9 10^3/uL (0.1-1.4); ABSOLUTE NEUT (AUTO) 2.8 10^3/uL (1.7-8.2); BASOPHILS % (AUTO) 0.4 % (0-2); EOSINOPHILS % (AUTO) 1.1 % (0-6); HEMATOCRIT 24.8 % (36.0-47.0); HEMOGLOBIN 8.2 g/dL (12.0-15.5); LYMPHOCYTES % (AUTO) 18.6 % (13-45); MEAN CORPUSCULAR HEMOGLOBIN 32.7 pg (27.0-33.4); MEAN CORPUSCULAR HGB CONC 33.3 g/dL (32.0-36.0); MEAN CORPUSCULAR VOLUME 98 fl (80-97); MONOCYTES % (AUTO) 18.8 % (3-13); PLATELET COUNT 134 10^3/uL (150-450); RED BLOOD COUNT 2.53 10^6/uL (3.72-5.28); RED CELL DISTRIBUTION WIDTH 16.5 % (11.5-14.0); SEGMENTED NEUTROPHILS % (AUTO) 61.1 % (42-78); TOTAL CELLS COUNTED % (AUTO) 100 %; WHITE BLOOD COUNT 4.6 10^3/uL (4.0-10.5)
[2018-09-15 04:02] LABS: ALANINE AMINOTRANSFERASE 22 U/L (9-52); ALBUMIN 3.2 g/dL (3.5-5.0); ALKALINE PHOSPHATASE 83 U/L (38-126); ANION GAP 6 (5-19); ASPARTATE AMINO TRANSFERASE 27 U/L (14-36); BILIRUBIN,DIRECT 0.2 mg/dL (0.0-0.4); BILIRUBIN,TOTAL 0.4 mg/dL (0.2-1.3); BLOOD UREA NITROGEN 10 mg/dL (7-20); CALCIUM 9.1 mg/dL (8.4-10.2); CARBON DIOXIDE 27 mmol/L (22-30); CHLORIDE 106 mmol/L (98-107); CHOLESTEROL 130.35 mg/dL (0-200); CREATINE KINASE 54 U/L (30-135); GLUCOSE 96 mg/dL (75-110); POTASSIUM 4.4 mmol/L (3.6-5.0); SODIUM 139.1 mmol/L (137-145); TOTAL PROTEIN 6.9 g/dL (6.3-8.2); TRIGLYCERIDES 48 mg/dL (<150)
[2018-09-15 04:12] LABS: CREATINE KINASE MB 0.45 ng/mL (<4.55); NT PRO BNP 130 pg/mL (5-900)
[2018-09-15 04:13] LABS: DIRECT LDL 79 mg/dL (<100); TROPONIN I < 0.012 ng/mL
[2018-09-15] MEDS ORDERED: ACETAMINOPHEN SOLN 325 MG/10.15 ML UDCUP PO PRN (08:06)
[2018-09-15] MEDS ORDERED: ACETAMINOPHEN SOLN 325 MG/10.15 ML UDCUP ONE (08:07)
[2018-09-15] MEDS: ONDANSETRON HCL INJ/PF 4 MG/2 ML SDV IV PRN (08:13)
[2018-09-15] MEDS ORDERED: LORAZEPAM 0.5 MG TABLET PEG SCH (10:00)
[2018-09-15 11:00] LABS: CREATINE KINASE MB 0.44 ng/mL (<4.55)
[2018-09-15 11:04] LABS: TROPONIN I < 0.012 ng/mL
[2018-09-15] MEDS ORDERED: LORAZEPAM INJ 2 MG/1 ML VIAL IV SCH (11:33)
[2018-09-15] MEDS ORDERED: NAPROXEN 375 MG TABLET PEG PRN (11:35)
--- NOTE | 2018-09-15 11:39 | PDOC CONSULTATION ---
Consultation Consult Date: 09/15/18 Consult reason:: Hematology/Oncology consultation was requested for patient with pneumonia on current chemotherapy for head and neck cancer. 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 Most recently, she was treated with carboplatin/taxotere/erbitux and CT scans showed stable disease. Therefore, treatment was changed to Erbitux only and this was given on 09/12/2018. Over the next 4 days after treatment, patient had been feeling tired, but overall, OK. However, 48 hours ago, she began having nausea, dry heaves, dyspnea, cough, and chest pains. She was brought to the ED and repeat CT-A was performed which showed an acute pneumonitis - favored to be infectious due to having developed over a very short time. Patient also relates that she was admitted for pneumonia after her last chemo as well. Today, she states that she is feeling OK. Nausea has improved. She has not had a BM for several days. SHe is frustrated and wants to be able to prevent these episodes in the future. Past Medical History Cardiac Medical History: Reports: Hypertension Denies: Coronary Artery Disease, Myocardial Infarction Pulmonary Medical History: Reports: Asthma Denies: Bronchitis, Chronic Obstructive Pulmonary Disease (COPD), Pneumonia Neurological Medical History: Denies: Seizures Malignancy Medical History: Reports: Other - History of breast cancer and neck and head cancer. Musculoskeltal Medical History: Reports: Arthritis Hematology: Reports: Anemia, Bleeding Tendencies Past Surgical History Past Surgical History: Reports: Other - History of port placement oral surgery for neck cancer. Lymph node removal Social History Lives with: Family Smoking Status: Current Every Day Smoker Cigarettes Packs Per Day: 0.5 Frequency of Alcohol Use: None Hx Recreational Drug Use: No Drugs: None Hx Prescription Drug Abuse: No - Advance Directive Resuscitation Status: Full Code Family History Parental Family History Reviewed: Yes Children Family History Reviewed: No Sibling(s) Family History Reviewed.: Yes - Brother with Prostate cancer and her brother's child with stomach cancer. Medication/Allergy Home Medications: Fentanyl [Duragesic 25 mcg/hr Transdermal Patch] 25 mcg TD Q3D 07/19/18 Hydrocodone Bit/Acetaminophen [Hydrocodone-Acetaminophen Soln] 15 ml PO Q6HP PRN 07/19/18 Lorazepam [Ativan 0.5 mg Tablet] 0.25 mg PO DAILY 07/19/18 Ondansetron HCl [Zofran 4 mg/5 ml Oral Soln] 5 ml PO DAILY 07/19/18 Scopolamine 1 patch TD Q3D 07/19/18 Levofloxacin [Levaquin 750 mg Tablet] 750 mg PO DAILY #4 tablet 07/25/18 Allergies/Adverse Reactions: aspirin Allergy (Verified 09/14/18 13:13) Review of Systems Constitutional: PRESENT: fever(s), headache(s) Eyes: ABSENT: visual disturbances Ears: ABSENT: hearing changes Nose, Mouth, and Throat: PRESENT: sore throat Cardiovascular: ABSENT: chest pain Respiratory: PRESENT: cough Gastrointestinal: PRESENT: constipation, nausea Genitourinary: ABSENT: dysuria Musculoskeletal: ABSENT: muscle weakness Integumentary: ABSENT: rash Neurological: ABSENT: abnormal speech, memory loss Physical Exam Vital Signs: Temp Pulse Resp BP Pulse Ox 97.4 F 95 18 95/63 L 88 L 09/15/18 03:58 09/15/18 03:58 09/15/18 00:00 09/15/18 03:58 09/15/18 03:58 Intake & Output 09/14/18 09/15/18 09/16/18 06:59 06:59 06:59 Intake Total 1000 Balance 1000 Weight 59.6 kg General appearance: PRESENT: well-developed, well-nourished Exam: 58 year old Female. is at bedside. Head exam: PRESENT: normocephalic Eye exam: PRESENT: EOMI Mouth exam: PRESENT: other - Chronic changes from cancer. Cannot open mouth all the way. Neck exam: ABSENT: lymphadenopathy, tenderness Respiratory exam: PRESENT: clear to auscultation michael, unlabored Cardiovascular exam: PRESENT: RRR GI/Abdominal exam: PRESENT: soft. ABSENT: tenderness Extremities exam: ABSENT: pedal edema Musculoskeletal exam: PRESENT: normal inspection Neurological exam: PRESENT: alert, awake, other - Speech is somewhat difficult due to anatomy Psychiatric exam: PRESENT: appropriate affect Focused psych exam: ABSENT: pressured speech, restlessness Skin exam: PRESENT: normal color Results Laboratory Results: 09/15/18 03:06 09/15/18 03:06 09/14/18 09/14/18 09/14/18 14:01 15:05 15:05 WBC 4.6 RBC 2.77 L Hgb 9.0 L Hct 27.1 L MCV 98 H MCH 32.6 MCHC 33.3 RDW 15.8 H Plt Count 156 Seg Neutrophils % Not Reportable Lymphocytes % Not Reportable Monocytes % Not Reportable Eosinophils % Not Reportable Basophils % Not Reportable Absolute Neutrophils Not Reportable Absolute Lymphocytes Not Reportable Absolute Monocytes Not Reportable Absolute Eosinophils Not Reportable Absolute Basophils Not Reportable VBG pH VBG pCO2 VBG HCO3 VBG Base Excess Sodium 136.0 L Potassium 4.0 Chloride 98 Carbon Dioxide 28 Anion Gap 10 BUN 11 Creatinine 0.57 Est GFR ( Amer) > 60 Est GFR (Non-Af Amer) > 60 Glucose 103 Lactic Acid Calcium 9.5 Magnesium Total Bilirubin 0.6 AST 28 ALT 23 Alkaline Phosphatase 101 Total Protein 8.0 Albumin 3.9 Triglycerides Cholesterol LDL Cholesterol Direct VLDL Cholesterol HDL Cholesterol Lipase 76.4 TSH Urine Color YELLOW Urine Appearance SLIGHTLY-CLOUDY Urine pH 8.0 Ur Specific [place] 1.017 Urine Protein 30 H Urine Glucose (UA) NEGATIVE Urine Ketones NEGATIVE Urine Blood MODERATE H Urine Nitrite NEGATIVE Ur Leukocyte Esterase SMALL H Urine WBC (Auto) 31 Urine RBC (Auto) 38 09/14/18 09/14/18 09/14/18 15:05 15:05 21:00 WBC RBC Hgb Hct MCV MCH MCHC RDW Plt Count Seg Neutrophils % Lymphocytes % Monocytes % Eosinophils % Basophils % Absolute Neutrophils Absolute Lymphocytes Absolute Monocytes Absolute Eosinophils Absolute Basophils VBG pH 7.38 VBG pCO2 56.4 VBG HCO3 32.5 H VBG Base Excess 6.0 Sodium Potassium Chloride Carbon Dioxide Anion Gap BUN Creatinine Est GFR ( Amer) Est GFR (Non-Af Amer) Glucose Lactic Acid 1.2 1.4 Calcium Magnesium Total Bilirubin AST ALT Alkaline Phosphatase Total Protein Albumin Triglycerides Cholesterol LDL Cholesterol Direct VLDL Cholesterol HDL Cholesterol Lipase TSH Urine Color Urine Appearance Urine pH Ur Specific [place] Urine Protein Urine Glucose (UA) Urine Ketones Urine Blood Urine Nitrite Ur Leukocyte Esterase Urine WBC (Auto) Urine RBC (Auto) 09/15/18 09/15/18 09/15/18 03:06 03:06 03:06 WBC 4.6 RBC 2.53 L Hgb 8.2 L Hct 24.8 L MCV 98 H MCH 32.7 MCHC 33.3 RDW 16.5 H Plt Count 134 L Seg Neutrophils % 61.1 Lymphocytes % 18.6 Monocytes % 18.8 H Eosinophils % 1.1 Basophils % 0.4 Absolute Neutrophils 2.8 Absolute Lymphocytes 0.9 Absolute Monocytes 0.9 Absolute Eosinophils 0.0 Absolute Basophils 0.0 VBG pH VBG pCO2 VBG HCO3 VBG Base Excess Sodium 139.1 Potassium 4.4 Chloride 106 Carbon Dioxide 27 Anion Gap 6 BUN 10 Creatinine 0.48 L Est GFR ( Amer) > 60 Est GFR (Non-Af Amer) > 60 Glucose 96 Lactic Acid Calcium 9.1 Magnesium 1.9 Total Bilirubin 0.4 AST 27 ALT 22 Alkaline Phosphatase 83 Total Protein 6.9 Albumin 3.2 L Triglycerides 48 Cholesterol 130.35 LDL Cholesterol Direct 79 VLDL Cholesterol 10.0 HDL Cholesterol 34 L Lipase TSH 0.56 Urine Color Urine Appearance Urine pH Ur Specific [place] Urine Protein Urine Glucose (UA) Urine Ketones Urine Blood Urine Nitrite Ur Leukocyte Esterase Urine WBC (Auto) Urine RBC (Auto) 09/14/18 09/14/18 09/14/18 15:05 21:00 21:00 Creatine Kinase 49 CK-MB (CK-2) 0.39 Troponin I < 0.012 < 0.012 NT-Pro-B Natriuret Pep 149 09/15/18 09/15/18 09/15/18 03:06 03:06 09:20 Creatine Kinase 54 49 CK-MB (CK-2) 0.45 Troponin I < 0.012 NT-Pro-B Natriuret Pep 130 09/15/18 09:20 Creatine Kinase CK-MB (CK-2) 0.44 Troponin I < 0.012 NT-Pro-B Natriuret Pep Impressions: Chest X-Ray 09/14/18 13:49 IMPRESSION: Improved right lung opacities, suggestive of improving pneumonia. Chest/Abdomen CTA 09/14/18 15:01 IMPRESSION: 1. No pulmonary embolus. 2. Moderately worsened multifocal consolidations of the right upper lobe and new small ground-glass opacities of the left upper lobe. Given the short time period, pneumonia is favored. Recommend continued follow-up to resolution. 3. Right hilar and mediastinal adenopathy, as above, slightly worse since prior. Likely reactive. Assessment & Plan - Diagnosis (1) Pneumonia of both upper lobes Qualifiers: Pneumonia type: due to unspecified organism Qualified Code(s): J18.1 - Lobar pneumonia, unspecified organism Is this a current diagnosis for this admission?: Yes Plan: I have explained to the patient that it is difficult to tell for sure if this in infectious, or a reaction to the medication. Await cultures. She is on allan ropriate antibiotics. Consider adding steroids, if needed. Will hold off for now. (2) Anemia Qualifiers: Other causes of anemia: antineoplastic chemotherapy Is this a current diagnosis for this admission?: No Plan: Currently stable. No indication for blood transfusions. Will watch. - Plan Summary Plan Summary: Dr. Calle to return tomorrow. We will continue to follow. Please call me with any concerns.
[2018-09-15] MEDS: ENOXAPARIN SODIUM INJ 40 MG/0.4 ML DISP.SYRIN SUBCUT SCH (12:53)
[2018-09-15] MEDS: DOCUSATE SODIUM 100 MG/10 ML UDC PEG SCH ×2 (12:57→19:38)
[2018-09-15] MEDS: FAMOTIDINE 20 MG TABLET PEG SCH ×2 (12:58→21:54)
--- NOTE | 2018-09-15 13:29 | PDOC PROGRESS REPORT ---
Subjective Progress Note for:: 09/15/18 Subjective:: 58 year old female with history of breast cancer, head and neck cancer on chemotherapy, chronic pain syndrome, hypertension came to the emergency room with complaints of pain between the shoulder blades associated with low-grade fever from this morning. Decided to came to the emergency room for further evaluation. Patient is currently on Erbitux. Workup was done in the emergency room CT chest was done PE is ruled out but found to have a bilateral small consolidations representing pneumonia. Patient also has a low-grade fever of 99.4. Patient denies any vomiting's except for nausea which was chronic denies any diarrhea but complains of constipation last bowel movement 3 days ago. Complaining of dry heaves and dry cough. Denies any chest pains. Complaining of headaches which was chronic. Case was discussed by the ER physician with Dr. varela she agreed for placement here for further management. Medical consult was called for admission. 09/15/2018-no acute events in the last 24 hours. Patient is afebrile. Still hypotensive. Comfortable in the bed denies any complaints. Reason For Visit: PNEUMONIA Physical Exam Vital Signs: Temp Pulse Resp BP Pulse Ox 98.3 F 91 17 91/48 L 97 09/15/18 12:00 09/15/18 12:00 09/15/18 12:00 09/15/18 12:00 09/15/18 12:00 Intake & Output 09/14/18 09/15/18 09/16/18 06:59 06:59 06:59 Intake Total 1000 Balance 1000 Weight 59.6 kg General appearance: PRESENT: no acute distress Head exam: PRESENT: atraumatic Eye exam: PRESENT: PERRLA Mouth exam: PRESENT: moist, tongue midline Neck exam: ABSENT: carotid bruit, JVD, lymphadenopathy, thyromegaly Respiratory exam: PRESENT: clear to auscultation michael. ABSENT: rales, rhonchi, wheezes Cardiovascular exam: PRESENT: RRR. ABSENT: diastolic murmur, rubs, systolic murmur GI/Abdominal exam: PRESENT: normal bowel sounds, soft. ABSENT: distended, guarding, mass, organolmegaly, rebound, tenderness Extremities exam: PRESENT: full ROM. ABSENT: calf tenderness, clubbing, pedal edema Neurological exam: PRESENT: alert, awake, oriented to person, oriented to place, oriented to time, oriented to situation, CN II-XII grossly intact. ABSENT: motor sensory deficit Psychiatric exam: PRESENT: appropriate affect, normal mood. ABSENT: homicidal ideation, suicidal ideation Results Laboratory Results: 09/15/18 03:06 09/15/18 03:06 09/14/18 09/14/18 09/14/18 14:01 15:05 15:05 WBC 4.6 RBC 2.77 L Hgb 9.0 L Hct 27.1 L MCV 98 H MCH 32.6 MCHC 33.3 RDW 15.8 H Plt Count 156 Seg Neutrophils % Not Reportable Lymphocytes % Not Reportable Monocytes % Not Reportable Eosinophils % Not Reportable Basophils % Not Reportable Absolute Neutrophils Not Reportable Absolute Lymphocytes Not Reportable Absolute Monocytes Not Reportable Absolute Eosinophils Not Reportable Absolute Basophils Not Reportable VBG pH VBG pCO2 VBG HCO3 VBG Base Excess Sodium 136.0 L Potassium 4.0 Chloride 98 Carbon Dioxide 28 Anion Gap 10 BUN 11 Creatinine 0.57 Est GFR ( Amer) > 60 Est GFR (Non-Af Amer) > 60 Glucose 103 Lactic Acid Calcium 9.5 Magnesium Total Bilirubin 0.6 AST 28 ALT 23 Alkaline Phosphatase 101 Total Protein 8.0 Albumin 3.9 Triglycerides Cholesterol LDL Cholesterol Direct VLDL Cholesterol HDL Cholesterol Lipase 76.4 TSH Urine Color YELLOW Urine Appearance SLIGHTLY-CLOUDY Urine pH 8.0 Ur Specific Liguori 1.017 Urine Protein 30 H Urine Glucose (UA) NEGATIVE Urine Ketones NEGATIVE Urine Blood MODERATE H Urine Nitrite NEGATIVE Ur Leukocyte Esterase SMALL H Urine WBC (Auto) 31 Urine RBC (Auto) 38 09/14/18 09/14/18 09/14/18 15:05 15:05 21:00 WBC RBC Hgb Hct MCV MCH MCHC RDW Plt Count Seg Neutrophils % Lymphocytes % Monocytes % Eosinophils % Basophils % Absolute Neutrophils Absolute Lymphocytes Absolute Monocytes Absolute Eosinophils Absolute Basophils VBG pH 7.38 VBG pCO2 56.4 VBG HCO3 32.5 H VBG Base Excess 6.0 Sodium Potassium Chloride Carbon Dioxide Anion Gap BUN Creatinine Est GFR ( Amer) Est GFR (Non-Af Amer) Glucose Lactic Acid 1.2 1.4 Calcium Magnesium Total Bilirubin AST ALT Alkaline Phosphatase Total Protein Albumin Triglycerides Cholesterol LDL Cholesterol Direct VLDL Cholesterol HDL Cholesterol Lipase TSH Urine Color Urine Appearance Urine pH Ur Specific Liguori Urine Protein Urine Glucose (UA) Urine Ketones Urine Blood Urine Nitrite Ur Leukocyte Esterase Urine WBC (Auto) Urine RBC (Auto) 09/15/18 09/15/18 09/15/18 03:06 03:06 03:06 WBC 4.6 RBC 2.53 L Hgb 8.2 L Hct 24.8 L MCV 98 H MCH 32.7 MCHC 33.3 RDW 16.5 H Plt Count 134 L Seg Neutrophils % 61.1 Lymphocytes % 18.6 Monocytes % 18.8 H Eosinophils % 1.1 Basophils % 0.4 Absolute Neutrophils 2.8 Absolute Lymphocytes 0.9 Absolute Monocytes 0.9 Absolute Eosinophils 0.0 Absolute Basophils 0.0 VBG pH VBG pCO2 VBG HCO3 VBG Base Excess Sodium 139.1 Potassium 4.4 Chloride 106 Carbon Dioxide 27 Anion Gap 6 BUN 10 Creatinine 0.48 L Est GFR ( Amer) > 60 Est GFR (Non-Af Amer) > 60 Glucose 96 Lactic Acid Calcium 9.1 Magnesium 1.9 Total Bilirubin 0.4 AST 27 ALT 22 Alkaline Phosphatase 83 Total Protein 6.9 Albumin 3.2 L Triglycerides 48 Cholesterol 130.35 LDL Cholesterol Direct 79 VLDL Cholesterol 10.0 HDL Cholesterol 34 L Lipase TSH 0.56 Urine Color Urine Appearance Urine pH Ur Specific Liguori Urine Protein Urine Glucose (UA) Urine Ketones Urine Blood Urine Nitrite Ur Leukocyte Esterase Urine WBC (Auto) Urine RBC (Auto) 09/14/18 09/14/18 09/14/18 15:05 21:00 21:00 Creatine Kinase 49 CK-MB (CK-2) 0.39 Troponin I < 0.012 < 0.012 NT-Pro-B Natriuret Pep 149 09/15/18 09/15/18 09/15/18 03:06 03:06 09:20 Creatine Kinase 54 49 CK-MB (CK-2) 0.45 Troponin I < 0.012 NT-Pro-B Natriuret Pep 130 09/15/18 09:20 Creatine Kinase CK-MB (CK-2) 0.44 Troponin I < 0.012 NT-Pro-B Natriuret Pep Impressions: Chest X-Ray 09/14/18 13:49 IMPRESSION: Improved right lung opacities, suggestive of improving pneumonia. Chest/Abdomen CTA 09/14/18 15:01 IMPRESSION: 1. No pulmonary embolus. 2. Moderately worsened multifocal consolidations of the right upper lobe and new small ground-glass opacities of the left upper lobe. Given the short time pe riod, pneumonia is favored. Recommend continued follow-up to resolution. 3. Right hilar and mediastinal adenopathy, as above, slightly worse since prior. Likely reactive. Assessment and Plan - Diagnosis (1) Pneumonia of both upper lobes Qualifiers: Pneumonia type: due to unspecified organism Qualified Code(s): J18.1 - Lobar pneumonia, unspecified organism Is this a current diagnosis for this admission?: Yes Plan: 09/14/2018-patient is admitted for multifocal consolidations of the right upper lobe and a new small groundglass opacities in the left upper lobe. Started on ceftriaxone and levofloxacin. Blood cultures sputum cultures urine cultures are requested. Repeat lactic acid level was requested initial lactic acid level is 1.7. Sepsis protocol was implemented started on IV fluids normal saline at 75 cc/h. GI and DVT prophylaxis was provided. Started on Xopenex nebulizations every 4 as needed. pt Was placed on oxygen 2 L nasal cannula. 09/15/2018 patient is receiving IV ceftriaxone and IV levofloxacin. Admission CT scan shows bilateral consolidations in the upper lobes. Blood cultures and sputum cultures are pending. Pulse ox is 97% on room air today. Plan is to continue the present management. Most likely she has a community-acquired pneumonia most likely due to gram-positive organism (2) Breast cancer Qualifiers: Breast location: unspecified site of breast Estrogen receptor status: unspecified Patient sex: female Laterality: unspecified laterality Qu alified Code(s): C50.919 - Malignant neoplasm of unspecified site of unspecified female breast Is this a current diagnosis for this admission?: No Plan: Patient has a history of breast cancer follows with Dr. Calle as an outpatie nt. Patient receiving chemotherapy ERBITUX consult was placed for Dr. Clark. 09/15/2018-patient has history of breast cancer left-sided lumpectomy and lymph node removal from the axillary area further management as per Dr. Clark. (3) SIRS (systemic inflammatory response syndrome) Is this a current diagnosis for this admission?: Yes Plan: 09/14/2018 patient came in with low-grade fever tachycardic heart rate in the 110s blood pressure is 100/60 respiratory rate of 29. Meeting the criteria for Sirs. She lactic acid level is normal. Chest x-ray shows bilateral consolidations in the upper lobes. 09/15/2018-patient T-max is 98.3 still hypotensive blood pressure is 90/48. Plan is to continue the IV fluids. Serum lactic acid levels are normal. (4) Anemia Qualifiers: Other causes of anemia: antineoplastic chemotherapy Is this a current diagnosis for this admission?: No Plan: 09/14/2018 patient's hemoglobin is 9.0. Patient has anemia of chronic disease most likely secondary to breast cancer. Patient's baseline hemoglobin is between 8- 9. Plan is to check the labs on daily basis. 09/15/2018-patient's hemoglobin is 8.2 anemia of chronic disease most likely secondary to underlying malignancy. (5) Tachycardia Is this a current diagnosis for this admission?: Yes Plan: 09/14/2018 patient heart rate is around 110 tachycardic most likely secondary to underlying pneumonia. 09/15/2018-patient's heart rate is 89 improved compared to yesterday. Tachycardia most likely secondary to pneumonia. (6) Chronic pain syndrome Is this a current diagnosis for this admission?: No Plan: 09/14/2018-patient may have a chronic pain syndrome she is on fentanyl patch and oxycodone at home plan is to resume those medications during the hospital stay. 09/15/2018-patient has history of chronic pain syndrome on fentanyl patch and oxycodone those medications are continued during the hospital stay. (7) Tobacco abuse Is this a current diagnosis for this admission?: No - Time Time Spent with patient: 15-24 minutes Smoking Cessation Education: over 10 minutes Medications reviewed and adjusted accordingly: Yes Anticipated discharge: Home
[2018-09-15] MEDS ORDERED: ACETAMINOPHEN PO PRN (13:30)
[2018-09-15] MEDS ORDERED: [UNRECOGNIZED DRUG - OTHER] PO PRN (13:30)
[2018-09-15] MEDS ORDERED: HYDROCODONE BIT PO PRN (13:30)
[2018-09-15] MEDS ORDERED: HYDROCOD/ACETAMIN 7.5-325 MG/15 ML ORAL SOLN UDCUP PO PRN (13:53)
[2018-09-15] MEDS ORDERED: CEFTRIAXONE 2 GM/D5W RTU 2 GM/50 ML RTUPB IV SCH (18:00)
[2018-09-15] MEDS: NORMAL SALINE 1000 ML 1,000 ML IV PRN (19:37)
[2018-09-15] MEDS: LEVOFLOXACIN 750 MG/D5W RTU 750 MG/150 ML RTUPB IV SCH (21:54)
[2018-09-16] MEDS: GUAIFENESIN SYRP 200 MG/10 ML UDC PEG PRN ×2 (01:44→15:47)
[2018-09-16] MEDS: ONDANSETRON HCL INJ/PF 4 MG/2 ML SDV IV PRN (01:51)
[2018-09-16 04:32] LABS: ABSOLUTE EOSINOPHILS # (AUTO) 0.1 10^3/uL (0.0-0.6); ABSOLUTE MONOCYTES (AUTO) 0.7 10^3/uL (0.1-1.4); ABSOLUTE NEUT (AUTO) 2.3 10^3/uL (1.7-8.2); BASOPHILS % (AUTO) 0.5 % (0-2); EOSINOPHILS % (AUTO) 2.2 % (0-6); HEMATOCRIT 24.1 % (36.0-47.0); LYMPHOCYTES % (AUTO) 24.4 % (13-45); MEAN CORPUSCULAR HEMOGLOBIN 32.8 pg (27.0-33.4); MEAN CORPUSCULAR HGB CONC 33.3 g/dL (32.0-36.0); MEAN CORPUSCULAR VOLUME 98 fl (80-97); MONOCYTES % (AUTO) 17.8 % (3-13); PLATELET COUNT 136 10^3/uL (150-450); RED BLOOD COUNT 2.45 10^6/uL (3.72-5.28); RED CELL DISTRIBUTION WIDTH 16.6 % (11.5-14.0); SEGMENTED NEUTROPHILS % (AUTO) 55.1 % (42-78); TOTAL CELLS COUNTED % (AUTO) 100 %; WHITE BLOOD COUNT 4.1 10^3/uL (4.0-10.5)
[2018-09-16 04:53] LABS: ALANINE AMINOTRANSFERASE 23 U/L (9-52); ALBUMIN 3.3 g/dL (3.5-5.0); ALKALINE PHOSPHATASE 128 U/L (38-126); ANION GAP 7 (5-19); ASPARTATE AMINO TRANSFERASE 24 U/L (14-36); BILIRUBIN,DIRECT 0.1 mg/dL (0.0-0.4); BILIRUBIN,TOTAL 0.1 mg/dL (0.2-1.3); BLOOD UREA NITROGEN 10 mg/dL (7-20); CALCIUM 8.8 mg/dL (8.4-10.2); CARBON DIOXIDE 24 mmol/L (22-30); CHLORIDE 107 mmol/L (98-107); GLUCOSE 98 mg/dL (75-110); POTASSIUM 4.2 mmol/L (3.6-5.0); SODIUM 138.2 mmol/L (137-145); TOTAL PROTEIN 6.7 g/dL (6.3-8.2)
[2018-09-16] MEDS ORDERED: LIDOCAINE 2% VISCOUS SOLN 20 ML UDCUP PO ONE (06:45)
--- NOTE | 2018-09-16 08:32 | PDOC PROGRESS REPORT ---
Subjective Progress Note for:: 09/16/18 Subjective:: Patient seems much better today, no longer febrile, feeling seemingly back to baseline Reason For Visit: PNEUMONIA Physical Exam Vital Signs: Temp Pulse Resp BP Pulse Ox 98.5 F 99 17 109/67 97 09/15/18 23:00 09/16/18 02:00 09/15/18 23:00 09/15/18 23:00 09/15/18 23:00 Intake & Output 09/15/18 09/16/18 09/17/18 06:59 06:59 06:59 Intake Total 1150 1318 Balance 1150 1318 Weight 59.6 kg 65 kg General appearance: PRESENT: no acute distress, well-developed, well-nourished Head exam: PRESENT: atraumatic, normocephalic Eye exam: PRESENT: conjunctiva pink, EOMI, PERRLA. ABSENT: scleral icterus Ear exam: PRESENT: normal external ear exam Mouth exam: PRESENT: moist, tongue midline Neck exam: ABSENT: carotid bruit, JVD, lymphadenopathy, thyromegaly Respiratory exam: PRESENT: clear to auscultation michael. ABSENT: rales, rhonchi, wheezes Cardiovascular exam: PRESENT: RRR. ABSENT: diastolic murmur, rubs, systolic murmur Pulses: PRESENT: normal dorsalis pedis pul Vascular exam: PRESENT: normal capillary refill GI/Abdominal exam: PRESENT: normal bowel sounds, soft. ABSENT: distended, guarding, mass, organolmegaly, rebound, tenderness Rectal exam: PRESENT: deferred Extremities exam: PRESENT: full ROM. ABSENT: calf tenderness, clubbing, pedal edema Neurological exam: PRESENT: alert, awake, oriented to person, oriented to place, oriented to time, oriented to situation, CN II-XII grossly intact. ABSENT: motor sensory deficit Psychiatric exam: PRESENT: appropriate affect, normal mood. ABSENT: homicidal ideation, suicidal ideation Skin exam: PRESENT: dry, intact, warm. ABSENT: cyanosis, rash Results Laboratory Results: 09/16/18 03:54 09/16/18 03:54 09/16/18 09/16/18 03:54 03:54 WBC 4.1 RBC 2.45 L Hgb 8.0 L Hct 24.1 L MCV 98 H MCH 32.8 MCHC 33.3 RDW 16.6 H Plt Count 136 L Seg Neutrophils % 55.1 Lymphocytes % 24.4 Monocytes % 17.8 H Eosinophils % 2.2 Basophils % 0.5 Absolute Neutrophils 2.3 Absolute Lymphocytes 1.0 Absolute Monocytes 0.7 Absolute Eosinophils 0.1 Absolute Basophils 0.0 Sodium 138.2 Potassium 4.2 Chloride 107 Carbon Dioxide 24 Anion Gap 7 BUN 10 Creatinine 0.43 L Est GFR ( Amer) > 60 Est GFR (Non-Af Amer) > 60 Glucose 98 Calcium 8.8 Magnesium 1.6 Total Bilirubin 0.1 L AST 24 ALT 23 Alkaline Phosphatase 128 H Total Protein 6.7 Albumin 3.3 L 09/14/18 09/14/18 09/14/18 15:05 21:00 21:00 Creatine Kinase 49 CK-MB (CK-2) 0.39 Troponin I < 0.012 < 0.012 NT-Pro-B Natriuret Pep 149 09/15/18 09/15/18 09/15/18 03:06 03:06 09:20 Creatine Kinase 54 49 CK-MB (CK-2) 0.45 Troponin I < 0.012 NT-Pro-B Natriuret Pep 130 09/15/18 09:20 Creatine Kinase CK-MB (CK-2) 0.44 Troponin I < 0.012 NT-Pro-B Natriuret Pep Impressions: Chest X-Ray 09/14/18 13:49 IMPRESSION: Improved right lung opacities, suggestive of improving pneumonia. Chest/Abdomen CTA 09/14/18 15:01 IMPRESSION: 1. No pulmonary embolus. 2. Moderately worsened multifocal consolidations of the right upper lobe and new small ground-glass opacities of the left upper lobe. Given the short time period, pneumonia is favored. Recommend continued follow-up to resolution. 3. Right hilar and mediastinal adenopathy, as above, slightly worse since prior. Likely reactive. Assessment & Plan - Diagnosis (1) Pneumonia of both upper lobes Qualifiers: Pneumonia type: aspiration pneumonia Qualified Code(s): J18.1 - Lobar pneumonia, unspecified organism Is this a current diagnosis for this admission?: Yes Plan: Most likely an aspiration type pneumonia. She was given a course of ceftriaxone, we can discharge her with Levaquin for 7 days. (2) Head and neck cancer Is this a current diagnosis for this admission?: Yes Plan: I had a long discussion today, we will decide whether or not to continue the maintenance Erbitux. We will give her a 2-week break and have her come back and see us. She needs G-tube replaced. This will be ordered inpatient.
[2018-09-16] MEDS ORDERED: ONDANSETRON HCL INJ/PF 4 MG/2 ML SDV PO PRN (09:30)
[2018-09-16] MEDS ORDERED: ONDANSETRON 4 MG TAB.RAPDIS ONE (09:37)
[2018-09-16] MEDS ORDERED: MAGNESIUM OXIDE 400 MG TABLET PO SCH (10:00)
[2018-09-16] MEDS ORDERED: LORAZEPAM 0.5 MG TABLET PEG SCH (10:00)
[2018-09-16] MEDS: ENOXAPARIN SODIUM INJ 40 MG/0.4 ML DISP.SYRIN SUBCUT SCH (10:01)
[2018-09-16] MEDS: DOCUSATE SODIUM 100 MG/10 ML UDC PEG SCH (10:01)
[2018-09-16] MEDS: FAMOTIDINE 20 MG TABLET PEG SCH (10:02)
--- NOTE | 2018-09-16 14:35 | PDOC DISCHARGE SUMMARY ---
General - Admit/Disc Date/PCP Admission Date/Primary Care Provider: 09/14/18 17:53 MARYJO SMITH NP Discharge Date: 09/16/18 - Discharge Diagnosis (1) Pneumonia of both upper lobes Is this a current diagnosis for this admission?: Yes Summary: 09/14/2018-patient is admitted for multifocal consolidations of the right upper lobe and a new small groundglass opacities in the left upper lobe. Started on ceftriaxone and levofloxacin. Blood cultures sputum cultures urine cultures are requested. Repeat lactic acid level was requested initial lactic acid level is 1.7. Sepsis protocol was implemented started on IV fluids normal saline at 75 cc/h. GI and DVT prophylaxis was provided. Started on Xopenex nebulizations every 4 as needed. pt Was placed on oxygen 2 L nasal cannula. 09/15/2018 patient is receiving IV ceftriaxone and IV levofloxacin. Admission CT scan shows bilateral consolidations in the upper lobes. Blood cultures and sputum cultures are pending. Pulse ox is 97% on room air today. Plan is to continue the present management. Most likely she has a community-acquired pneumonia most likely due to gram-positive organism 09/16/2018 58-year-old female with breast cancer and neck and head cancer admitted for bilateral consolidative pneumonia. Treated with IV ceftriaxone and IV levofloxacillin. The sputum cultures came back positive for group G beta Streptococcus, gram-negative rods, Corynebacterium. Patient is afebrile and going home on levofloxacillin 500 mg p.o. 10 days. (2) Breast cancer Is this a current diagnosis for this admission?: No Summary: Patient has a history of breast cancer follows with Dr. Calle as an outpatient. Patient receiving chemotherapy ERBITUX consult was placed for Dr. Clark. 09/15/2018-patient has history of breast cancer left-sided lumpectomy and lymph node removal from the axillary area further management as per Dr. Clark. 09/16/2018-patient has history of breast cancer status post left breast lumpectomy and lymph node removal from the left axillary region she is following with Dr. Calle as an outpatient for further management as per Dr. Clark. (3) SIRS (systemic inflammatory response syndrome) Is this a current diagnosis for this admission?: Yes Summary: 09/14/2018 patient came in with low-grade fever tachycardic heart rate in the 110s blood pressure is 100/60 respiratory rate of 29. Meeting the criteria for Sirs. She lactic acid level is normal. Chest x-ray shows bilateral consolidations in the upper lobes. 09/15/2018-patient T-max is 98.3 still hypotensive blood pressure is 90/48. Plan is to continue the IV fluids. Serum lactic acid levels are normal. 09/16/2018-patient's vital signs today temperature is 97.3 blood pressure 153 is/82. Pulse ox is 99% on room air. WBC is 10,000. Symptoms are improved with IV fluids and antibiotic therapy. Patient is going home today. (4) Anemia Is this a current diagnosis for this admission?: No Summary: 09/14/2018 patient's hemoglobin is 9.0. Patient has anemia of chronic disease most likely secondary to breast cancer. Patient's baseline hemoglobin is between 8- 9. Plan is to check the labs on daily basis. 09/15/2018-patient's hemoglobin is 8.2 anemia of chronic disease most likely secondary to underlying malignancy. 09/16/2018-patient's latest hemoglobin is 8.0. Anemia of chronic disease most likely secondary to underlying breast cancer. (5) Tachycardia Is this a current diagnosis for this admission?: Yes Summary: 09/14/2018 patient heart rate is around 110 tachycardic most likely secondary to underlying pneumonia. 09/15/2018-patient's heart rate is 89 improved compared to yesterday. Tachycardia most likely secondary to pneumonia. 09/16/2018-and his pulse rate is 99 today. Tachycardia is resolving which is most likely secondary to underlying pneumonia. (6) Chronic pain syndrome Is this a current diagnosis for this admission?: No Summary: 09/14/2018-patient may have a chronic pain syndrome she is on fentanyl patch and oxycodone at home plan is to resume those medications during the hospital stay. 09/15/2018-patient has history of chronic pain syndrome on fentanyl patch and oxycodone those medications are continued during the hospital stay. 09/16/2018-patient has history of chronic pain syndrome on fentanyl patch and oxycodone IR at home plan is to resume those medications here in the hospital. (7) Tobacco abuse Is this a current diagnosis for this admission?: No - Additional Information Resuscitation Status: Full Code Discharge Diet: Cardiac Discharge Activity: Activity As Tolerated Prescriptions: Levofloxacin [Levaquin 500 mg Tablet] 500 mg PO DAILY #10 tablet Home Medications: Fentanyl [Duragesic 25 mcg/hr Transdermal Patch] 25 mcg TD Q3D 07/19/18 Hydrocodone Bit/Acetaminophen [Hydrocodone-Acetaminophen Soln] 15 ml PO Q6HP PRN 07/19/18 Lorazepam [Ativan 0.5 mg Tablet] 0.5 mg PO DAILYP PRN 07/19/18 Ondansetron HCl [Zofran 4 mg/5 ml Oral Soln] 5 ml PO Q8HP PRN 07/19/18 Scopolamine 1 patch TD Q3D 07/19/18 Levofloxacin [Levaquin 500 mg Tablet] 500 mg PO DAILY #10 tablet 09/16/18 History of Present Illness History of Present Illness: ELIAZAR NEGRETE is a 58 year old female with history of breast cancer, head and neck cancer on chemotherapy, chronic pain syndrome, hypertension came to the emergency room with complaints of pain between the shoulder blades associated with low-grade fever from this morning. Decided to came to the emergency room for further evaluation. Patient is currently on Erbitux. Workup was done in the emergency room CT chest was done PE is ruled out but found to have a bilateral small consolidations representing pneumonia. Patient also has a low- grade fever of 99.4. Patient denies any vomiting's except for nausea which was chronic denies any diarrhea but complains of constipation last bowel movement 3 days ago. Complaining of dry heaves and dry cough. Denies any chest pains. Complaining of headaches which was chronic. Case was discussed by the ER physician with Dr. varela she agreed for placement here for further management. Medical consult was called for admission. Hospital Course Hospital Course: [id number] female admitted for pneumonia she has history of breast cancer, head and neck cancer. Going home on p.o. levofloxacin. Hematology consult was done while she was in the hospital. Physical Exam Vital Signs: Temp Pulse Resp BP Pulse Ox 98.5 F 99 17 109/67 97 09/15/18 23:00 09/16/18 02:00 09/15/18 23:00 09/15/18 23:00 09/15/18 23:00 Intake & Output 09/15/18 09/16/18 09/17/18 06:59 06:59 06:59 Intake Total 1150 1318 Balance 1150 1318 Weight 59.6 kg 65 kg General appearance: PRESENT: no acute distress Head exam: PRESENT: atraumatic Eye exam: PRESENT: PERRLA Neck exam: ABSENT: carotid bruit, JVD, lymphadenopathy, thyromegaly Respiratory exam: PRESENT: decreased breath sounds Cardiovascular exam: PRESENT: RRR. ABSENT: diastolic murmur, rubs, systolic murmur Pulses: PRESENT: normal dorsalis pedis pul GI/Abdominal exam: PRESENT: normal bowel sounds, soft. ABSENT: distended, guarding, mass, organolmegaly, rebound, tenderness Extremities exam: PRESENT: full ROM. ABSENT: calf tenderness, clubbing, pedal edema Neurological exam: PRESENT: alert, awake, oriented to person, oriented to place, oriented to time, oriented to situation, CN II-XII grossly intact. ABSENT: motor sensory deficit Psychiatric exam: PRESENT: appropriate affect, normal mood. ABSENT: homicidal ideation, suicidal ideation Results Laboratory Results: 09/16/18 03:54 09/16/18 03:54 09/16/18 09/16/18 03:54 03:54 WBC 4.1 RBC 2.45 L Hgb 8.0 L Hct 24.1 L MCV 98 H MCH 32.8 MCHC 33.3 RDW 16.6 H Plt Count 136 L Seg Neutrophils % 55.1 Lymphocytes % 24.4 Monocytes % 17.8 H Eosinophils % 2.2 Basophils % 0.5 Absolute Neutrophils 2.3 Absolute Lymphocytes 1.0 Absolute Monocytes 0.7 Absolute Eosinophils 0.1 Absolute Basophils 0.0 Sodium 138.2 Potassium 4.2 Chloride 107 Carbon Dioxide 24 Anion Gap 7 BUN 10 Creatinine 0.43 L Est GFR ( Amer) > 60 Est GFR (Non-Af Amer) > 60 Glucose 98 Calcium 8.8 Magnesium 1.6 Total Bilirubin 0.1 L AST 24 ALT 23 Alkaline Phosphatase 128 H Total Protein 6.7 Albumin 3.3 L 09/14/18 14:01 Clean Catch Midstream Urine Culture - Final Lactobacillus (Vaginal Sharri) 09/14/18 09/14/18 09/14/18 15:05 21:00 21:00 Creatine Kinase 49 CK-MB (CK-2) 0.39 Troponin I < 0.012 < 0.012 NT-Pro-B Natriuret Pep 149 09/15/18 09/15/18 09/15/18 03:06 03:06 09:20 Creatine Kinase 54 49 CK-MB (CK-2) 0.45 Troponin I < 0.012 NT-Pro-B Natriuret Pep 130 09/15/18 09:20 Creatine Kinase CK-MB (CK-2) 0.44 Troponin I < 0.012 NT-Pro-B Natriuret Pep Impressions: Chest X-Ray 09/14/18 13:49 IMPRESSION: Improved right lung opacities, suggestive of improving pneumonia. Chest/Abdomen CTA 09/14/18 15:01 IMPRESSION: 1. No pulmonary embolus. 2. Moderately worsened multifocal consolidations of the right upper lobe and new small ground-glass opacities of the left upper lobe. Given the short time period, pneumonia is favored. Recommend continued follow-up to resolution. 3. Right hilar and mediastinal adenopathy, as above, slightly worse since prior. Likely reactive. Qualifiers - * PATIENT BEING DISCHARGED WITH ANY OF THE FOLLOWING DIAGNOSIS: No VTE patient discharged on overlapping Therapy?: No
[2018-09-16 15:51] VITALS: BP 111/71
--- NOTE | 2018-09-18 15:02 | RADIOLOGY REPORT (SQ) ---
EXAM DESCRIPTION: REPLACE G TUBE; FLUORO/PERC DRAINAGE W/CATH COMPLETED DATE/TIME: 09/18/2018 12:22 pm REASON FOR STUDY: REPLACE G TUBE/ G-TUBE PAINFUL; REPLACE G-TUBE/ G-TUBE PAINFUL COMPARISON: None. FLUOROSCOPY TIME: 1 second 2 images saved to PACS. TECHNIQUE: Pre-existing catheter was prepped and draped in a standard fashion. An Amplatz wire was advanced through the pre-existing gastrostomy catheter and the catheter removed. A new 20 [place] gas trostomy catheter was advanced over the wire into the gastric lumen. The balloon was insufflated wit h dilute contrast and seated against the anterior abdominal wall. Small amount of contrast was injec pedro to confirm appropriate position. A sterile dressing was applied. Fluoroscopic spot films saved to PACS demonstrating final catheter position. LIMITATIONS: None. FINDINGS: Completion image demonstrates gastrostomy tube within the gastric lumen. No evidence of c omplication. IMPRESSION: Exchange of the 20 [place] gastrostomy catheter utilizing fluoroscopic guidance as detail ed above. COMMENT: Quality ID 145: Final reports for procedures using fluoroscopy that document radiation exp osure indices, or exposure time and number of fluorographic images (if radiation exposure indices are not available) TECHNICAL DOCUMENTATION: JOB ID: [id number] [employer]- All Rights Reserved Reading location - IP/workstation name: [email or web address]
--- NOTE | 2018-09-18 15:02 | RADIOLOGY REPORT (SQ) ---
EXAM DESCRIPTION: REPLACE G TUBE; FLUORO/PERC DRAINAGE W/CATH COMPLETED DATE/TIME: 09/18/2018 12:22 pm REASON FOR STUDY: REPLACE G TUBE/ G-TUBE PAINFUL; REPLACE G-TUBE/ G-TUBE PAINFUL COMPARISON: None. FLUOROSCOPY TIME: 1 second 2 images saved to PACS. TECHNIQUE: Pre-existing catheter was prepped and draped in a standard fashion. An Amplatz wire was advanced through the pre-existing gastrostomy catheter and the catheter removed. A new 20 Peruvian gas trostomy catheter was advanced over the wire into the gastric lumen. The balloon was insufflated wit h dilute contrast and seated against the anterior abdominal wall. Small amount of contrast was injec pedro to confirm appropriate position. A sterile dressing was applied. Fluoroscopic spot films saved to PACS demonstrating final catheter position. LIMITATIONS: None. FINDINGS: Completion image demonstrates gastrostomy tube within the gastric lumen. No evidence of c omplication. IMPRESSION: Exchange of the 20 Peruvian gastrostomy catheter utilizing fluoroscopic guidance as detail ed above. COMMENT: Quality ID 145: Final reports for procedures using fluoroscopy that document radiation exp osure indices, or exposure time and number of fluorographic images (if radiation exposure indices are not available) TECHNICAL DOCUMENTATION: JOB ID: [id number] [employer]- All Rights Reserved Reading location - IP/workstation name: [email or web address]
== END 2018-09-16 16:30 | disposition home or self-care (01) | DRG 195 ==
LOC: ER 13:10 → EH 17:53 → 5 19:46
PROVIDERS: ADMIT Internal Medicine; ATTEND Internal Medicine
DX: J18.1 Lobar pneumonia, unspecified organism (principal); C76.0 Malignant neoplasm of head, face and neck; I10 Essential (primary) hypertension; D64.81 Anemia due to antineoplastic chemotherapy; R00.0 Tachycardia, unspecified; J45.909 Unspecified asthma, uncomplicated; G89.4 Chronic pain syndrome; M19.90 Unspecified osteoarthritis, unspecified site; F17.210 Nicotine dependence, cigarettes, uncomplicated; Z85.3 Personal history of malignant neoplasm of breast
CPT/HCPCS: 36415; 49450; 71046; 71275; 75989; 80053; 80061; 81001; 82550; 82553; 82803; 83036; 83605; 83690; 83735; 83880; 84443; 84484; 85025; 85610; 87040; 87070; 87077; 87086; 87186; 87205; 93005; 93010; 94640; 96361; 96374; 99291; J0696; J1956; J2060; J2405; J3490; J7030; S0119

== ENCOUNTER → 2018-09-30 | Outpatient (CLI) | payer OTHER ==
--- NOTE | 2018-09-30 12:39 | RADIOLOGY REPORT (SQ) ---
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 Additio nal selected color Doppler and spectral images recorded. LIMITATIONS: None. FINDINGS: PANCREAS: Midline pancreas unremarkable LIVER: No masses. Echotexture normal. LIVER VASCULATURE: Normal directional flow of the main portal vein and hepatic veins. GALLBLADDER: Multiple stones in the gallbladder without gallbladder wall thickening or pericholecysti c fluid ULTRASOUND-DETECTED GRIMES'S SIGN: Negative. INTRAHEPATIC DUCTS AND COMMON DUCT: CBD and intrahepatic ducts normal caliber. No filling defects. INFERIOR VENA CAVA: Normal flow. AORTA: No aneurysm. RIGHT KIDNEY: Normal size. Normal echogenicity. No solid or suspicious masses. No hydronephrosis. No calcifications. PERITONEAL AND RIGHT PLEURAL SPACE: No ascites or effusions. OTHER: No upper abdominal free fluid. No free fluid along the gastrostomy tube tract. IMPRESSION: Stones in the gallbladder without gallbladder wall thickening or pericholecystic fluid. TECHNICAL DOCUMENTATION: JOB ID: [id number]- All Rights Reserved Reading location - IP/workstation name: [email or web address]
== END ==
LOC: RAD 11:27
PROVIDERS: ATTEND Physician Assistant Medical
DX: C01 Malignant neoplasm of base of tongue (principal); K80.80 Other cholelithiasis without obstruction; R10.9 Unspecified abdominal pain
CPT/HCPCS: 76705; 93976

== ENCOUNTER 2018-10-13 16:50 | Emergency (ER) | payer OTHER ==
[2018-10-13] MEDS ORDERED: FAMOTIDINE INJ/PF 20 MG/2 ML SDV IV ONE ×2 (17:01→17:32)
[2018-10-13] MEDS ORDERED: DIPHENHYDRAMINE HCL 50 MG/ML VIAL ONE (17:01)
[2018-10-13] MEDS ORDERED: EPINEPHRINE INJ/PF 1 MG/1 ML AMPULE ONE (17:01)
[2018-10-13] MEDS ORDERED: METHYLPREDNISOLONE INJ 125 MG/2 ML SDV ONE (17:02)
[2018-10-13] MEDS ORDERED: TRANEXAMIC ACID INJ/PF 1,000 MG/10 ML SDV IV ONE (17:02)
--- NOTE | 2018-10-13 17:11 | ER Document Report ---
ED General - General Chief Complaint: Facial Swelling Stated Complaint: TONGUE SWELLING Time Seen by Provider: 10/13/18 17:11 Primary Care Provider: KRISTYN SMITH MD [ACTIVE STAFF] - Follow up in 3-5 days Notes: Patient is a 58-year-old female with history of tongue reconstruction after cancer that presents to the emergency department for chief complaint of tongue swelling and possible allergic reaction. Patient states that she is a started taking gabapentin over the weekend, that was prescribed for nerve pain in her face, and today noticed swelling of her tongue particular on the right side, is higher than usual, and she was concerned that she was having an allergic reaction so she came to the emergency department for this. Denies prior history of allergies to gabapentin, but does have a history of allergy to aspirin. Denies any difficulty swallowing beyond her normal, denies any shortness of breath, difficulty breathing, chest pain or rash or wheezing. She denies having any nausea, vomiting or abdominal pain. Past Medical History: Tongue carcinoma status post resection Past Surgical History: Tongue reconstructive surgery Social History: Denies tobacco, alcohol or drug use. Family History: Reviewed and noncontributory for presenting illness Allergies: Reviewed, see documented allergy list. REVIEW OF SYSTEMS: Other than noted above, the 12 point review of systems was reviewed with the patient and were negative, all pertinent findings are included in the HPI. PHYSICAL EXAMINATION: Vital signs reviewed, nursing noted reviewed. GENERAL: Well-appearing, well-nourished and in no acute distress. HEAD: Atraumatic, normocephalic. EYES: Eyes appear normal, extraocular movements intact, sclera anicteric, conjunctiva are normal. ENT: nares patent, oropharynx clear without exudates. Moist mucous membranes. There is edema noted to the right side of the tongue, however the posterior pharynx is visualized. NECK: Normal range of motion, supple without lymphadenopathy LUNGS: Breath sounds clear to auscultation bilaterally and equal. No wheezes rales or rhonchi. HEART: Regular rate and rhythm without murmurs ABDOMEN: Soft, nontender, normoactive bowel sounds. No rebound, guarding, or rigidity. No masses appreciated. EXTREMITIES: Nontender, good range of motion, no pitting or edema. NEUROLOGICAL: No focal neurological deficits. Moves all extremities spontaneously Motor and sensory grossly intact on exam. PSYCH: Normal mood, normal affect. SKIN: Warm, Dry, normal turgor, well-healed surgical scars noted to the patient's left wrist, no other skin lesions noted. No rashes. TRAVEL OUTSIDE OF THE [place] IN LAST 30 DAYS: No - Related Data Allergies/Adverse Reactions: aspirin Allergy (Verified 09/14/18 13:13) Past Medical History - Social History Smoking Status: Never Smoker Family History: Reviewed & Not Pertinent - Past Medical History Cardiac Medical History: Reports: Hx Hypertension Denies: Hx Coronary Artery Disease, Hx Heart Attack Pulmonary Medical History: Reports: Hx Asthma Denies: Hx Bronchitis, Hx COPD, Hx Pneumonia Neurological Medical History: Denies: Hx Cerebrovascular Accident, Hx Seizures Renal/ Medical History: Denies: Hx Peritoneal Dialysis Musculoskeletal Medical History: Reports Hx Arthritis Past Surgical History: Reports: Hx Abdominal Surgery - PEG tube, Hx Breast Surgery - lumpectomy, Hx Gynecologic Surgery - 1 fallopian tube removed, Hx Oral Surgery - throat surgery, Other - History of port placement oral surgery for neck cancer. Lymph node removal - Immunizations Hx Diphtheria, Pertussis, Tetanus Vaccination: No Physical Exam - Vital signs Vitals: Temp Pulse Resp BP Pulse Ox 97.5 F 99 18 131/82 H 98 10/13/18 16:59 10/13/18 16:59 10/13/18 16:59 10/13/18 16:59 10/13/18 16:59 Course - Re-evaluation Re-evalutation: Patient seen and examined vital signs reviewed. Laboratory data and/or imaging were ordered as appropriate for the patient's presenting symptoms and complaint, with consideration of any critical or life threatening conditions that may be associated with their obtained history and exam as noted above. Patient was treated with IV Benadryl, Solu-Medrol, Pepcid, and IM epinephrine. The patient was re-evaluated and was improving, or tongue swelling seem to be coming down, although the NG edema was still present, she was continued to be monitored, reevaluated several times, not worsening in any way, never hypoxic. At which point I felt the patient could be safely discharged, advised Benadryl for the next few days, given through her PEG tube, as well as prednisolone, and to follow-up with her primary care and to avoid any further gabapentin Evaluation was most consistent with angioedema, likely medication reaction Results were discussed with the patient at this point, after careful consideration I feel that that patient can be discharged from the emergency dep artment, the patient was educated treatments and reasons to return to the emergency department based on their presumed diagnosis as noted above, they were advised to followup with a primary care physician in 2-3 days. Patient was agreeable to plan of care. *Note is created using voice recognition software and may contain spelling, syntax or grammatical errors. - Vital Signs Vital signs: Temp Pulse Resp BP Pulse Ox 98.4 F 99 20 127/85 H 99 10/13/18 20:00 10/13/18 16:59 10/13/18 19:59 10/13/18 20:00 10/13/18 20:00 Discharge - Discharge Clinical Impression: Angioedema Qualifiers: Encounter type: initial encounter Qualified Code(s): T78.3XXA - Angioneurotic edema, initial encounter Medication reaction Qualifiers: Encounter type: initial encounter Qualified Code(s): T50.905A - Adverse effect of unspecified drugs, medicaments and biological substances, initial encounter Condition: Stable Disposition: HOME, SELF-CARE Instructions: Angioedema ([facility]) Additional Instructions: Please follow-up with Dr. Smith. And for the next 2 days I recommend taking Benadryl 3 times daily, and taking the steroid as prescribed once daily. Discontinue taking the gabapentin completely. Prescriptions: RX: Diphenhydramine HCl [Children's Allergy] 25 mg PEG Q8H #150 ml Prednisolone [Prelone 15mg/5ml] 45 mg PEG DAILY #45 ml Referrals: KRISTYN SMITH MD [ACTIVE STAFF] - Follow up in 3-5 days
[2018-10-13] MEDS ORDERED: DIPHENHYDRAMINE HCL 50 MG/ML VIAL IV ONE (17:31)
[2018-10-13] MEDS ORDERED: METHYLPREDNISOLONE INJ 125 MG/2 ML SDV IV ONE (17:32)
[2018-10-13] MEDS ORDERED: EPINEPHRINE INJ/PF 1 MG/1 ML AMPULE IM ONE (17:45)
[2018-10-13 20:35] VITALS: BP 127/85
== END 2018-10-13 20:05 | disposition home or self-care (01) ==
LOC: ER 16:50
DX: T78.3XXA Angioneurotic edema, initial encounter (principal); T50.905A Adverse effect of unspecified drugs, medicaments and biological substances, initial encounter; R22.0 Localized swelling, mass and lump, head; Z79.899 Other long term (current) drug therapy; I10 Essential (primary) hypertension; J45.909 Unspecified asthma, uncomplicated
CPT/HCPCS: 99283; 96372; 96374; 96375; J1200; J0171; J2930; S0028

== ENCOUNTER → 2018-11-05 | Outpatient (CLI) | payer OTHER ==
--- NOTE | 2018-11-05 11:40 | RADIOLOGY REPORT (SQ) ---
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 Reconstructed coronal and sagittal MPR images reviewed. All images stored on PACS. All CT scanners at this facility use dose modulation, iterative reconstruction, and/or weight based d osing when appropriate to reduce radiation dose to as low as reasonably achievable (ALARA). [facility]: Dose Right [facility]: CareDose [facility]: Dose Right [facility]: Teradose 4D [facility]: [email or web address] CONTRAST TYPE AND DOSE: 78 mL of IV Omnipaque 350- low osmolar. RENAL FUNCTION: Creatinine 0.6 RADIATION DOSE: 12.3 mGy . 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 The f atty density surgical flap along the left submandibular triangle and floor of mouth is present with s urrounding surgical clips, stable compared to previous exams. Blurring of fat planes around the left carotid bifurcation/left neck from prior radiation therapy. Left submandibular gland has been resected. The right submandibular gland is grossly normal size wit hout CT evidence of stones. Sublingual glands are not well seen. Along the midline submental region, a 1.4 x 1.3 cm lymph node is present on axial image 61. This is slightly larger than on multiple previous exams where it measured 1.3 x 1 cm in size. There is a stable 7 x 5 mm right submandibular triangle node on axial image 57 compared to multiple p revious studies. SKULL BASE: Inferior brain parenchyma unremarkable MAJOR SALIVARY GLANDS: Chronic glands are unremarkable. Submandibular and sublingual glands as above LYMPHADENOPATHY: Enlarging midline submental lymph node compared to previous studies MUCOSAL MASSES OR ASYMMETRY: Fatty density flap along the left floor of mouth as above. Otherwise un remarkable LARYNX/CORDS: No abnormal findings. VASCULAR STRUCTURES: Carotid bifurcations are patent. Right internal jugular vein not identified. L eft internal jugular vein is stenotic at the level of radiation. These findings are stable LUNG APICES: Obstructive lung disease BONES: Intact. THYROID: Normal size. No masses. PARANASAL SINUSES: Clear. OTHER: Right jugular central line tip in the superior vena cava IMPRESSION: Enlarging midline submental lymph node compared to previous exams. TECHNICAL DOCUMENTATION: JOB ID: [id number] Quality ID # [id number]: Final reports with documentation of one or more dose reduction techniques (e.g., Au tomated exposure control, adjustment of the mA and/or kV according to patient size, use of iterative reconstruction technique) 2010 [employer]- All Rights Reserved Reading location - IP/workstation name: [email or web address]-
--- NOTE | 2018-11-05 12:08 | RADIOLOGY REPORT (SQ) ---
EXAM DESCRIPTION: CT CHEST WITH; CT ABD/PELVIS WITH IV ONLY COMPLETED DATE/TIME: 11/05/2018 11:16 am REASON FOR STUDY: MALIGNANT NEOPLASM OF BASE OF TONGUE C01 MALIGNANT NEOPLASM OF BASE OF TONGUE COMPARISON: PET-CT 01/22/2018, 05/20/2017, 07/04/2015 CT angio chest 09/14/2018 CT chest abdomen pelvis 09/09/2018, 09/14/2017 CONTRAST TYPE AND DOSE: contrast/concentration: Isovue 350.00 mg/ml; Total Contrast Delivered: 78.0 ml; Total Saline Delivered: 47.0 ml RENAL FUNCTION: Creatinine 0.6 TECHNIQUE: CT scan of the chest performed using helical scanning technique with dynamic intravenous contrast injection. Images reviewed with lung, soft tissue and bone windows. Reconstructed coronal a nd sagittal MPR images reviewed. All images stored on PACS. CT scan of the abdomen and pelvis performed with intravenous and without oral contrastusing helical s lauren technique with dynamic intravenous contrast injection. Images reviewed with lung, soft tissu e and bone windows. Reconstructed coronal and sagittal MPR images reviewed. Delayed images for eval uation of the urinary system also acquired and evaluated. All images stored on PACS. All CT scanners at this facility use dose modulation, iterative reconstruction, and/or weight based d osing when appropriate to reduce radiation dose to as low as reasonably achievable (ALARA). [facility]: Dose Right [facility]: CareDose [facility]: Dose Right [facility]: Teradose 4D [facility]: [employer] RADIATION DOSE: Total for exam chest abdomen and pelvis 13 mGy . LIMITATIONS: None. FINDINGS: CHEST: LUNGS AND PLEURA: There is interstitial lung disease at both bases with honeycombing and pulmonary fi brosis, stable. No acute infiltrates. No pleural effusion. No worrisome nodules. Airways are gomez nt. HILAR AND MEDIASTINAL STRUCTURES: No identified masses or abnormal nodes. HEART AND VASCULAR STRUCTURES: Mild cardiomegaly. No thoracic aortic aneurysm or dissection. No ricky ss central pulmonary artery is. Chronic stenosis proximal right subclavian vein with multiple collat erals in the right supraclavicular region, stable compared to previous exams. Right permanent centra l line tip superior vena cava HARDWARE: Right permanent central line tip superior vena cava THYROID AND OTHER SOFT TISSUES: No masses. No adenopathy. Left axillary surgical clips BONES: No significant finding. OTHER: No other significant finding. ABDOMEN AND PELVIS: LIVER: Normal size. No masses. No dilated ducts. SPLEEN: Normal size. No focal lesions. PANCREAS: No masses. No significant calcifications. No adjacent inflammation or peripancreatic fluid collections. Pancreatic duct not dilated. GALLBLADDER: Multiple tiny stones in the gallbladder without gallbladder wall thickening or perichole cystic fluid. ADRENAL GLANDS: No significant masses or asymmetry. RIGHT KIDNEY AND URETER: Right upper pole focal cortical scarring with 2 mm upper pole intrarenal non obstructive stone. 1.5 cm cyst right mid-pole kidney. No solid masses. No right-sided hydronephros is or hydroureter LEFT KIDNEY AND URETER: No solid masses. No significant calcification. No hydronephrosis or hydrouret er. 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 No dissection. Renal arteries, SMA, celiac without stenosis. RETROPERITONEUM: No retroperitoneal adenopathy, hemorrhage or masses. BOWEL AND PERITONEAL CAVITY: Large amount of stool throughout the colon. No CT evidence of bowel obs truction or free intraperitoneal air or fluid. There is a gastrostomy tube, with the balloon filled with radiodense contrast in the gastric antrum in good positioning. APPENDIX: Normal. ABDOMINAL WALL: No masses. No hernias. PELVIS: No mass or free fluid. Normal bladder. Normal size female pelvic organs BONES: No significant or acute findings. OTHER: No other significant finding. IMPRESSION: No CT evidence of metastatic disease to the chest abdomen or pelvis given history of ann or of mouth malignancy and breast cancer TECHNICAL DOCUMENTATION: JOB ID: [id number] Quality ID # 436: Final reports with documentation of one or more dose reduction techniques (e.g., Au tomated exposure control, adjustment of the mA and/or kV according to patient size, use of iterative reconstruction technique) 2010 [employer]- All Rights Reserved Reading location - IP/workstation name: [email or web address]
== END ==
LOC: RAD 10:24
PROVIDERS: ATTEND Internal Medicine
DX: C01 Malignant neoplasm of base of tongue (principal)
CPT/HCPCS: 70491; 71260; 74177

== ENCOUNTER → 2018-12-13 | Outpatient (CLI) | payer OTHER ==
--- NOTE | 2018-12-13 14:43 | RADIOLOGY REPORT (SQ) ---
EXAM DESCRIPTION: CHEST 2 VIEWS COMPLETED DATE/TIME: 12/13/2018 2:28 pm REASON FOR STUDY: R06.02 SHORTNESS OF BREATH COMPARISON: CT chest 11/05/2018 Two-view chest 09/14/2018, 07/19/2018 EXAM PARAMETERS: NUMBER OF VIEWS: two views TECHNIQUE: Digital Frontal and Lateral radiographic views of the chest acquired. RADIATION DOSE: NA LIMITATIONS: none FINDINGS: LUNGS AND PLEURA: Obstructive lung disease is present with bibasilar chronic scarring. No acute infiltrates. No pleural effusion. No pneumothorax. MEDIASTINUM AND HILAR STRUCTURES: No masses or contour abnormalities. HEART AND VASCULAR STRUCTURES: Stable mild cardiomegaly BONES: No acute findings. HARDWARE: Right-sided permanent central line tip superior vena cava. OTHER: No other significant finding. IMPRESSION: NO ACUTE RADIOGRAPHIC FINDING IN THE CHEST. TECHNICAL DOCUMENTATION: JOB ID: [id number] [employer]- All Rights Reserved Reading location - IP/workstation name: [email or web address]
== END ==
LOC: RAD 14:16
PROVIDERS: ATTEND Physician Assistant Medical
DX: R06.02 Shortness of breath (principal)
CPT/HCPCS: 71046

== ENCOUNTER → 2019-01-16 | Day surgery (SDC) | payer OTHER ==
--- NOTE | 2019-01-16 12:07 | RADIOLOGY REPORT (SQ) ---
EXAM DESCRIPTION: REPLACE G TUBE; FLUORO/PERC DRAINAGE W/CATH COMPLETED DATE/TIME: 01/16/2019 11:09 am REASON FOR STUDY: REPLACE G TUBE; GASTROSTOMY STATUS (Z93.1) Z93.1 GASTROSTOMY STATUS COMPARISON: 09/16/2018 FLUOROSCOPY TIME: 54 seconds 2 digital fluoroscopic images saved to PACS. TECHNIQUE: Gastrostomy tube with catheter exchange over a Glidewire NUMBER OF IMAGES: 2 digital fluoroscopic images LIMITATIONS: None. FINDINGS: Pre-existing catheter was prepped and draped in a standard fashion. Miller wire was advan tino through the pre-existing gastrostomy catheter and the catheter removed. A new 20 [place] gastrosto my catheter was advanced over the wire into the gastric lumen. The balloon was insufflated with dilut e contrast and seated against the anterior abdominal wall. Small amount of contrast was injected to c onfirm appropriate position. A sterile dressing was applied. Fluoroscopic spot films saved to PACS de monstrating final catheter position in the gastric antrum. Contrast was injected to confirm G-tube p lacement. Prompt gastric emptying into normal duodenum. IMPRESSION: Gastrostomy tube catheter exchange, 20 welsh G-tube in place COMMENT: Quality ID 145: Final reports for procedures using fluoroscopy that document radiation exp osure indices, or exposure time and number of fluorographic images (if radiation exposure indices are not available) Please consult full operative report of the attending physician for description of the procedure. TECHNICAL DOCUMENTATION: JOB ID: [id number] [employer]- All Rights Reserved Reading location - IP/workstation name: [email or web address]
--- NOTE | 2019-01-16 12:07 | RADIOLOGY REPORT (SQ) ---
EXAM DESCRIPTION: REPLACE G TUBE; FLUORO/PERC DRAINAGE W/CATH COMPLETED DATE/TIME: 01/16/2019 11:09 am REASON FOR STUDY: REPLACE G TUBE; GASTROSTOMY STATUS (Z93.1) Z93.1 GASTROSTOMY STATUS COMPARISON: 09/16/2018 FLUOROSCOPY TIME: 54 seconds 2 digital fluoroscopic images saved to PACS. TECHNIQUE: Gastrostomy tube with catheter exchange over a Glidewire NUMBER OF IMAGES: 2 digital fluoroscopic images LIMITATIONS: None. FINDINGS: Pre-existing catheter was prepped and draped in a standard fashion. Miller wire was advan tino through the pre-existing gastrostomy catheter and the catheter removed. A new 20 Tongan gastrosto my catheter was advanced over the wire into the gastric lumen. The balloon was insufflated with dilut e contrast and seated against the anterior abdominal wall. Small amount of contrast was injected to c onfirm appropriate position. A sterile dressing was applied. Fluoroscopic spot films saved to PACS de monstrating final catheter position in the gastric antrum. Contrast was injected to confirm G-tube p lacement. Prompt gastric emptying into normal duodenum. IMPRESSION: Gastrostomy tube catheter exchange, 20 syriac G-tube in place COMMENT: Quality ID 145: Final reports for procedures using fluoroscopy that document radiation exp osure indices, or exposure time and number of fluorographic images (if radiation exposure indices are not available) Please consult full operative report of the attending physician for description of the procedure. TECHNICAL DOCUMENTATION: JOB ID: [id number] [employer]- All Rights Reserved Reading location - IP/workstation name: [email or web address]
== END ==
LOC: RAD 10:09 → EDSTATUS 13:32
PROVIDERS: ATTEND Internal Medicine
DX: Z93.1 Gastrostomy status (principal)
CPT/HCPCS: 75989; 49450; C1769

== ENCOUNTER → 2019-01-30 | Outpatient (CLI) | payer OTHER ==
--- NOTE | 2019-01-31 10:01 | RADIOLOGY REPORT (SQ) ---
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 Reconstructed coronal and sagittal MPR images reviewed. All images stored on PACS. All CT scanners at this facility use dose modulation, iterative reconstruction, and/or weight based d osing when appropriate to reduce radiation dose to as low as reasonably achievable (ALARA). [facility]: Dose Right [facility]: CareDose [facility]: Dose Right [facility]: Teradose 4D [facility]: [employer] CONTRAST TYPE AND DOSE: contrast/concentration: Isovue 350.00 mg/ml; Total Contrast Delivered: 75.0 ml; Total Saline Delivered: 30.4 ml RENAL FUNCTION: Creatinine 0.5 RADIATION DOSE: 16 mGy . LIMITATIONS: None. FINDINGS: On axial image 40, with ill-defined soft tissue mass is seen along the right pharyngeal to nsil/right lateral pharyngeal wall worrisome for recurrent tumor. This measures about 2.2 x 1.7 cm i n size. Post therapeutic changes are present along the left floor of mouth with a fatty surgical flap and krystal rounding surgical clips unchanged. Post resection of the left submandibular gland. SKULL BASE: Inferior brain parenchyma unremarkable MAJOR SALIVARY GLANDS: Post resection left submandibular gland. Other major salivary glands are dwight sly unremarkable LYMPHADENOPATHY: Midline submental lymph node is now 1.7 x 1.7 cm on axial image 54/103 (was 1.4 x 1. 3 cm on 11/05/2018). MUCOSAL MASSES OR ASYMMETRY: As above LARYNX/CORDS: Post radiation change with thickening of the epiglottis VASCULAR STRUCTURES: Carotid arteries are patent. 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 Stable stenosis left jugular vein at the level of radiation therapy. LUNG APICES: Clear. BONES: Intact. THYROID: Normal size. No masses. PARANASAL SINUSES: Clear. OTHER: No other significant finding. IMPRESSION: Findings worrisome for right tonsillar fossa/ lateral pharyngeal wall tumor recurrence. Enlarging midline submental lymph node TECHNICAL DOCUMENTATION: JOB ID: [id number] Quality ID # 436: Final reports with documentation of one or more dose reduction techniques (e.g., Au tomated exposure control, adjustment of the mA and/or kV according to patient size, use of iterative reconstruction technique) 2010 [employer]- All Rights Reserved Reading location - IP/workstation name: [id number]
== END ==
LOC: RAD 08:46
PROVIDERS: ATTEND Internal Medicine
DX: C01 Malignant neoplasm of base of tongue (principal)
CPT/HCPCS: 70491

== ENCOUNTER → 2019-04-11 | Outpatient (CLI) | payer OTHER ==
[~2019-04-11] MED LIST changes: +FENTANYL CITRATE INJ/PF 100 MCG/2 ML AMPUL ONE; -LIDOCAINE 2% INJ (20 MG/ML) 20 ML MDV ONE
--- NOTE | 2019-04-11 14:49 | RADIOLOGY REPORT (SQ) ---
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 Reconstructed coronal and sagittal MPR images reviewed. All images stored on PACS. All CT scanners at this facility use dose modulation, iterative reconstruction, and/or weight based d osing when appropriate to reduce radiation dose to as low as reasonably achievable (ALARA). [facility]: Dose Right [facility]: CareDose [facility]: Dose Right [facility]: Teradose 4D [facility]: [employer] CONTRAST TYPE AND DOSE: See separate report of the same date. RENAL FUNCTION: See separate report. RADIATION DOSE: . LIMITATIONS: None. FINDINGS: SKULL BASE: Intact. MAJOR SALIVARY GLANDS: Post resection of the left submandibular gland. LYMPHADENOPATHY: Decrease in midline submental node now 10 x 12 mm image 63 series 2. Previously 17 x 17 mm. MUCOSAL MASSES OR ASYMMETRY: Poorly marginated right lateral pharyngeal wall lesion 15 x 18 mm, previ ously 17 x 22 mm. Postsurgical changes left floor mouth adjacent to surgical clips not significantly changed. LARYNX/CORDS: No abnormal findings. VASCULAR STRUCTURES: Right jugular vein occluded. Stable stenosis left jugular vein image 39. LUNG APICES: See separate report. BONES: Intact. THYROID: Normal size. No masses. PARANASAL SINUSES: No fluid levels. OTHER: No other significant finding. IMPRESSION: Decrease in size of right lateral pharyngeal wall lesion consistent with favorable respo nse to therapy. Decrease in size of midline submental lymph node. TECHNICAL DOCUMENTATION: JOB ID: [id number] Quality ID # 436: Final reports with documentation of one or more dose reduction techniques (e.g., Au tomated exposure control, adjustment of the mA and/or kV according to patient size, use of iterative reconstruction technique) 2010 [employer]- All Rights Reserved Reading location - IP/workstation name: [email or web address]
--- NOTE | 2019-04-11 14:52 | RADIOLOGY REPORT (SQ) ---
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 Images reviewed with lung, soft tissue and bone windows. Reconstructed coronal and sagittal MPR and MIP images reviewed. All images stored on PACS. All CT scanners at this facility use dose modulation, iterative reconstruction, and/or weight based d osing when appropriate to reduce radiation dose to as low as reasonably achievable (ALARA). [facility]: Dose Right [facility]: CareDose [facility]: Dose Right [facility]: Teradose 4D [facility]: [employer] CONTRAST TYPE AND DOSE: See separate report of the same date. RENAL FUNCTION: See separate report. RADIATION DOSE: . LIMITATIONS: None. FINDINGS: LUNGS AND PLEURA: Stable basilar fibrosis and bronchiectasis. No developing nodules or in filtrate. HILAR AND MEDIASTINAL STRUCTURES: No identified masses or abnormal nodes. HEART AND VASCULAR STRUCTURES: No aneurysm or dissection. No central pulmonary emboli. No pericardi al effusion. HARDWARE: None in the chest. UPPER ABDOMEN: See separate report of the CT of the abdomen. THYROID AND OTHER SOFT TISSUES: No masses. No adenopathy. BONES: Nothing acute. OTHER: Stable position of right-sided port. IMPRESSION: No evidence of metastatic disease in the chest. TECHNICAL DOCUMENTATION: JOB ID: [id number] Quality ID # 436: Final reports with documentation of one or more dose reduction techniques (e.g., Au tomated exposure control, adjustment of the mA and/or kV according to patient size, use of iterative reconstruction technique) 2010 [employer]- All Rights Reserved Reading location - IP/workstation name: [email or web address]
--- NOTE | 2019-04-11 14:56 | RADIOLOGY REPORT (SQ) ---
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 No oral contrast. Images reviewed with lung, soft tissue, and bone windows. Reconstructed coronal and sagittal MPR images reviewed. Delayed images for evaluation of the urinary system also acquired. All images stored on PACS. All CT scanners at this facility use dose modulation, iterative reconstruction, and/or weight based d osing when appropriate to reduce radiation dose to as low as reasonably achievable (ALARA). [facility]: Dose Right [facility]: CareDose [facility]: Dose Right [facility]: Teradose 4D [facility]: [employer] CONTRAST TYPE AND DOSE: contrast/concentration: Isovue 350.00 mg/ml; Total Contrast Delivered: 57.0 ml; Total Saline Delivered: 65.0 ml RENAL FUNCTION: GFR > 60. RADIATION DOSE: . LIMITATIONS: None. FINDINGS: LOWER CHEST: See separate report of the CT of the chest. LIVER: Normal size. No masses. No dilated ducts. SPLEEN: Normal size. No focal lesions. PANCREAS: No masses. No significant calcifications. No adjacent inflammation or peripancreatic fluid collections. Pancreatic duct not dilated. GALLBLADDER: Gallstones. No inflammatory changes to suggest cholecystitis. ADRENAL GLANDS: No significant masses or asymmetry. RIGHT KIDNEY AND URETER: No solid masses. Small nonobstructing renal calculi. No hydronephrosis o r hydroureter. LEFT KIDNEY AND URETER: No solid masses. No significant calcifications. No hydronephrosis or hydr oureter. AORTA AND VESSELS: No aneurysm. No dissection. Renal arteries, SMA, celiac without stenosis. RETROPERITONEUM: No retroperitoneal adenopathy, hemorrhage or masses. BOWEL AND PERITONEAL CAVITY: PEG tube has migrated anteriorly and tip is not in the stomach. No dila pedro loops. No ascites or free air. APPENDIX: Not visualized. PELVIS: No mass. No free fluid. Normal bladder. ABDOMINAL WALL: See above. BONES: No significant or acute findings. OTHER: No other significant finding. IMPRESSION: 1. No evidence of metastatic disease. 2. Dislodged PEG tube. TECHNICAL DOCUMENTATION: JOB ID: [id number] Quality ID # 436: Final reports with documentation of one or more dose reduction techniques (e.g., Au tomated exposure control, adjustment of the mA and/or kV according to patient size, use of iterative reconstruction technique) 2010 [employer]- All Rights Reserved Reading location - IP/workstation name: [email or web address]-
--- NOTE | 2019-04-11 16:18 | RADIOLOGY REPORT (SQ) ---
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 Fluoroscopic i mages were saved to PACS demonstrating the final position. RADIATION DOSE: 0.7 minutes of fluoroscopy was used. 5 images saved to PACS. LIMITATIONS: None. FINDINGS: Fluoro tube check was performed following injection of 10 mL Omnipaque 300 through the pat ient's gastrostomy tube. Gastrostomy tube is dislodged from the stomach and in the subcutaneous soft tissues. The tube track is patent and contrast flows into the stomach. After consent was obtained, the patient was placed on the fluoroscopy table and the existing G-tube was removed. The entry site was draped in a sterile fashion. The a 7 Ugandan dilator was advanced into the gastrostomy tract and a guidewire advanced into the stomach without difficulty. The dilator was advanced into the stomach over the wire and the wire removed. The small amount of contrast was instilled confirming intralumi nal placement of the dilated. A guidewire was replaced and the dilator removed. A 20 Ugandan gastros keyla tube was advanced over the wire and advanced into the stomach easily. The retention balloon was instilled with 20 cc sterile saline. Approximately 20 mL of non ionic contrast was used to confirm placement. Contrast was seen emptying out of the stomach and into the small bowel. 25 mcg of fentanyl as administered IV for pain control. IMPRESSION: Successful G tube replacement. COMMENT: Quality ID 145: Final reports for procedures using fluoroscopy that document radiation exp osure indices, or exposure time and number of fluorographic images (if radiation exposure indices are not available) TECHNICAL DOCUMENTATION: JOB ID: [id number] [employer]- All Rights Reserved Reading location - IP/workstation name: [email or web address]
== END ==
LOC: RAD 13:34
PROVIDERS: ATTEND Surgery
DX: K94.23 Gastrostomy malfunction (principal); C02.9 Malignant neoplasm of tongue, unspecified
CPT/HCPCS: 82565; 75989; 49450; 70491; 71260; 74177; C1769 ×2; C1894; J3010

== ENCOUNTER → 2019-07-23 | Day surgery (SDC) | payer OTHER ==
[~2019-07-23] MED LIST changes: -FENTANYL CITRATE INJ/PF 100 MCG/2 ML AMPUL ONE; +LIDOCAINE 1% INJ-PF (10 MG/ML) 30 ML SDV ONE
--- NOTE | 2019-07-23 15:29 | RADIOLOGY REPORT (SQ) ---
EXAM DESCRIPTION: FLUORO/PERC DRAINAGE W/CATH; REPLACE G TUBE COMPLETED DATE/TIME: 07/23/2019 3:07 pm REASON FOR STUDY: G TUBE REPLACEMENT C01 MALIGNANT NEOPLASM OF BASE OF TONGUE COMPARISON: None. TECHNIQUE: Using a sterile prep technique an old g-tube was exchanged for a new one. Fluoroscopic i mages were saved to PACS demonstrating the final position. RADIATION DOSE: 0.8 MINUTES OF FLUOROSCOPY WAS USED. 2 images saved to PACS. LIMITATIONS: None. FINDINGS: After consent was obtained, the patient was placed on the fluoroscopy table and the existi ng G-tube was prepped and draped in a sterile fashion. A wire was placed through the existing G-tube and into the stomach. The existing tube was exchanged for a 20 Fr G-tube. Approximately 20 mL of no n ionic contrast was used to confirm placement. Contrast was seen emptying out of the stomach and int o the small bowel. IMPRESSION: Successful G tube exchange. COMMENT: Quality ID 145: Final reports for procedures using fluoroscopy that document radiation exp osure indices, or exposure time and number of fluorographic images (if radiation exposure indices are not available) TECHNICAL DOCUMENTATION: JOB ID: [id number] 2010 [employer]- All Rights Reserved Reading location - IP/workstation name: [email or web address] [id number]
--- NOTE | 2019-07-23 15:29 | RADIOLOGY REPORT (SQ) ---
EXAM DESCRIPTION: FLUORO/PERC DRAINAGE W/CATH; REPLACE G TUBE COMPLETED DATE/TIME: 07/23/2019 3:07 pm REASON FOR STUDY: G TUBE REPLACEMENT C01 MALIGNANT NEOPLASM OF BASE OF TONGUE COMPARISON: None. TECHNIQUE: Using a sterile prep technique an old g-tube was exchanged for a new one. Fluoroscopic i mages were saved to PACS demonstrating the final position. RADIATION DOSE: 0.8 MINUTES OF FLUOROSCOPY WAS USED. 2 images saved to PACS. LIMITATIONS: None. FINDINGS: After consent was obtained, the patient was placed on the fluoroscopy table and the existi ng G-tube was prepped and draped in a sterile fashion. A wire was placed through the existing G-tube and into the stomach. The existing tube was exchanged for a 20 Fr G-tube. Approximately 20 mL of no n ionic contrast was used to confirm placement. Contrast was seen emptying out of the stomach and int o the small bowel. IMPRESSION: Successful G tube exchange. COMMENT: Quality ID 145: Final reports for procedures using fluoroscopy that document radiation exp osure indices, or exposure time and number of fluorographic images (if radiation exposure indices are not available) TECHNICAL DOCUMENTATION: JOB ID: [id number] 2010 [employer]- All Rights Reserved Reading location - IP/workstation name: [email or web address] [id number]
== END ==
LOC: RAD 09:30
PROVIDERS: ATTEND Internal Medicine
DX: C01 Malignant neoplasm of base of tongue (principal); G89.3 Neoplasm related pain (acute) (chronic); Z88.6 Allergy status to analgesic agent; Z79.01 Long term (current) use of anticoagulants; Z79.899 Other long term (current) drug therapy
CPT/HCPCS: 75989; 49450; C1769; J3490

== ENCOUNTER 2019-08-10 12:53 | Emergency (ER) | payer OTHER ==
--- NOTE | 2019-08-10 13:08 | ER Document Report ---
ED Medical Screen (RME) - General Chief Complaint: Swelling of Tongue Stated Complaint: TONGUE BLEEDING Time Seen by Provider: 08/10/19 13:06 Primary Care Provider: RONNY MINA FNP-C [Primary Care Provider] - Follow up as needed Notes: Patient is a 60-year-old female who presents to the emergency department with a chief complaint of bleeding in her mouth and slight tongue swelling. Patient has a history of cancer at the base of her tongue. She is seeing Dr. Calle for her cancer. Exam: Bleeding noted to mouth with clots. Tachycardic with heart rate of 136. I have greeted and performed a rapid initial assessment of this patient. A comprehensive ED assessment and evaluation of the patient, analysis of test results and completion of medical decision making process will be conducted by an additional ED providers. TRAVEL OUTSIDE OF THE [place] IN LAST 30 DAYS: No - Related Data Allergies/Adverse Reactions: aspirin Allergy (Verified 09/14/18 13:13) Past Medical History - Past Medical History Cardiac Medical History: Reports: Hx Hypertension Denies: Hx Coronary Artery Disease, Hx Heart Attack Pulmonary Medical History: Reports: Hx Asthma Denies: Hx Bronchitis, Hx COPD, Hx Pneumonia Neurological Medical History: Denies: Hx Cerebrovascular Accident, Hx Seizures Renal/ Medical History: Denies: Hx Peritoneal Dialysis Musculoskeltal Medical History: Reports Hx Arthritis Past Surgical History: Reports: Hx Abdominal Surgery - PEG tube, Hx Breast Surgery - lumpectomy, Hx Gynecologic Surgery - 1 fallopian tube removed, Hx Oral Surgery - throat surgery, Other - History of port placement oral surgery for neck cancer. Lymph node removal - Immunizations Hx Diphtheria, Pertussis, Tetanus Vaccination: No Physical Exam - Vital signs Vitals: Temp Pulse Resp BP Pulse Ox 97.6 F 136 H 16 126/71 H 100 08/10/19 13:04 08/10/19 13:04 08/10/19 13:04 08/10/19 13:04 08/10/19 13:04 Course - Vital Signs Vital signs: Temp Pulse Resp BP Pulse Ox 97.6 F 136 H 16 126/71 H 100 08/10/19 13:04 08/10/19 13:04 08/10/19 13:04 08/10/19 13:04 08/10/19 13:04 Doctor's Discharge - Discharge Referrals: MINA,RONNY, DOCTOR OF MEDICINE-C [Primary Care Provider] - Follow up as needed
[2019-08-10] MEDS ORDERED: NORMAL SALINE 1000 ML 1,000 ML IV ONE (13:22)
[2019-08-10 13:26] LABS: ABSOLUTE NEUT (AUTO) 3.8 10^3/uL (1.7-8.2); EOSINOPHILS % (AUTO) 0.4 % (0-6); TOTAL CELLS COUNTED % (AUTO) 100 %; WHITE BLOOD COUNT 5.9 10^3/uL (4.0-10.5)
--- NOTE | 2019-08-10 13:27 | ER Document Report ---
ED Oral Problem - General Chief Complaint: Swelling of Tongue Stated Complaint: TONGUE BLEEDING Time Seen by Provider: 08/10/19 13:06 Primary Care Provider: RONNY MINA FNP-C [Primary Care Provider] - Follow up as needed Mode of Arrival: Wheelchair Information source: Patient, Relative TRAVEL OUTSIDE OF THE [place] IN LAST 30 DAYS: No - HPI Patient complains to provider of: Other - pt with h/o head/neck ca being treated locally by Dr. Means [facility] with intraoral bleeding earlier this am and clot formation. Pt on eliqus. Denies pain - Related Data Allergies/Adverse Reactions: aspirin Allergy (Verified 09/14/18 13:13) Past Medical History - General Information source: Patient, Relative - Social History Smoking Status: Unknown if Ever Smoked Family History: Reviewed & Not Pertinent - Past Medical History Cardiac Medical History: Reports: Hx Hypertension Denies: Hx Coronary Artery Disease, Hx Heart Attack Pulmonary Medical History: Reports: Hx Asthma Denies: Hx Bronchitis, Hx COPD, Hx Pneumonia Neurological Medical History: Denies: Hx Cerebrovascular Accident, Hx Seizures Renal/ Medical History: Denies: Hx Peritoneal Dialysis Musculoskeletal Medical History: Reports Hx Arthritis Past Surgical History: Reports: Hx Abdominal Surgery - PEG tube, Hx Breast Surgery - lumpectomy, Hx Gynecologic Surgery - 1 fallopian tube removed, Hx Oral Surgery - throat surgery, Other - History of port placement oral surgery for neck cancer. Lymph node removal - Immunizations Hx Diphtheria, Pertussis, Tetanus Vaccination: No Review of Systems - Review of Systems Constitutional: No symptoms reported EENT: See HPI, Other - intraoral bleeding Cardiovascular: No symptoms reported Respiratory: No symptoms reported Gastrointestinal: No symptoms reported -: Yes All other systems reviewed and negative Physical Exam - Vital signs Vitals: Temp Pulse Resp BP Pulse Ox 97.6 F 136 H 16 126/71 H 100 08/10/19 13:04 08/10/19 13:04 08/10/19 13:04 08/10/19 13:04 08/10/19 13:04 - General General appearance: Alert In distress: None - pt. unable to speak - HEENT Head: Normocephalic Mouth/Lips: Other - there is a large clot visible as soon as pt. opens her mouth. She has had prior surgery to her tongue. Airway patent. - Respiratory Respiratory status: No respiratory distress Breath sounds: Normal - Cardiovascular Rhythm: Regular Heart sounds: Normal auscultation Murmur: No Course - Re-evaluation Re-evalutation: 08/10/19 15:02 Pt. was unable to lay flat for CT and therefore could not get done. Pt. continues to spit up dark blood with clots. I have spoken to Dr. Clark and she feels that since we have no ENT coverage, pt. [facility] be [facility]. I will call there now - Vital Signs Vital signs: Temp Pulse Resp BP Pulse Ox 98.3 F 118 H 25 H 130/84 H 100 08/10/19 18:39 08/10/19 18:29 08/10/19 18:39 08/10/19 18:39 08/10/19 18:39 - Laboratory Result Diagrams: 08/10/19 13:12 08/10/19 13:12 Laboratory results interpreted by me: 08/10/19 08/10/19 08/10/19 13:12 13:12 13:12 RBC 2.56 L Hgb 8.0 L Hct 24.0 L RDW 19.0 H Hood % (Auto) 17.5 H PT Chloride 95 L Carbon Dioxide 34 H Creatinine 0.39 L Glucose 116 H AST 45 H Alkaline Phosphatase 139 H Total Protein 8.3 H Crossmatch See Detail 08/10/19 13:12 RBC Hgb Hct RDW Hood % (Auto) PT 16.6 H Chloride Carbon Dioxide Creatinine Glucose AST Alkaline Phosphatase Total Protein Crossmatch Critical Care Note - Critical Care Note Total time excluding time spent on procedures (mins): 30 Discharge - Discharge Clinical Impression: Oral hemorrhage Condition: Stable Disposition: [place] Referrals: RONNY MINA FNP-C [Primary Care Provider] - Follow up as needed
[2019-08-10 13:35] LABS: BASOPHILS % (AUTO) 0.3 % (0-2); LYMPHOCYTES % (AUTO) 16.4 % (13-45); MEAN CORPUSCULAR HEMOGLOBIN 31.4 pg (27.0-33.4); MEAN CORPUSCULAR HGB CONC 33.5 g/dL (32.0-36.0); MEAN CORPUSCULAR VOLUME 94 fl (80-97); MONOCYTES % (AUTO) 17.5 % (3-13); PLATELET COUNT 183 10^3/uL (150-450); RED BLOOD COUNT 2.56 10^6/uL (3.72-5.28); SEGMENTED NEUTROPHILS % (AUTO) 65.4 % (42-78)
[2019-08-10 13:44] LABS: ALBUMIN 3.7 g/dL (3.5-5.0); ALKALINE PHOSPHATASE 139 U/L (38-126); ANION GAP 8 (5-19); ASPARTATE AMINO TRANSFERASE 45 U/L (14-36); BILIRUBIN,DIRECT 0.3 mg/dL (0.0-0.4); BILIRUBIN,TOTAL 0.3 mg/dL (0.2-1.3); BLOOD UREA NITROGEN 19 mg/dL (7-20); CALCIUM 9.5 mg/dL (8.4-10.2); CARBON DIOXIDE 34 mmol/L (22-30); CHLORIDE 95 mmol/L (98-107); GLUCOSE 116 mg/dL (75-110); POTASSIUM 4.4 mmol/L (3.6-5.0); TOTAL PROTEIN 8.3 g/dL (6.3-8.2)
[2019-08-10 14:10] LABS: INTERNATIONAL RATION (INR) 1.33; PROTHROMBIN TIME 16.6 SEC (11.4-15.4)
[2019-08-10 14:11] LABS: PARTIAL THROMBOPLASTIN TIME 29.7 SEC (23.5-35.8)
[2019-08-10] MEDS ORDERED: NORMAL SALINE 250 ML IV PRN (14:54)
[2019-08-10 18:45] VITALS: BP 130/84
== END 2019-08-10 19:15 | disposition short-term general hospital (02) ==
LOC: ER 12:53
DX: K13.79 Other lesions of oral mucosa (principal); R22.0 Localized swelling, mass and lump, head; Z85.89 Personal history of malignant neoplasm of other organs and systems; Z79.01 Long term (current) use of anticoagulants; Z79.899 Other long term (current) drug therapy; I10 Essential (primary) hypertension
CPT/HCPCS: 36591; 99291; 96360; 86900; 86901; 36415; 36430; 86850; 85025; 85610; 85730; 80053; 86920; P9016; J7030

== ENCOUNTER → 2019-10-15 | Day surgery (SDC) | payer OTHER ==
--- NOTE | 2019-10-15 15:03 | RADIOLOGY REPORT (SQ) ---
EXAM DESCRIPTION: REPLACE G TUBE; FLUORO/PERC DRAINAGE W/CATH IMAGES COMPLETED DATE/TIME: 10/15/2019 2:23 pm REASON FOR STUDY: MALIGNANT NEOSPLASM; C01 MALIGNANT NEOPLASM OF BASE OF TONGUE C01 MALIGNANT NEOPL ASM OF BASE OF TONGUE COMPARISON: 07/23/2019 FLUOROSCOPY TIME: 0.35 minutes 3 images saved to PACS. TECHNIQUE: Procedure was explained to the patient and the consent was obtained. The patient stated to the fluoroscopy suite and positioned supine on the fluoroscopy table. The abdomen was prepped in a standard fashion. Pre-existing gastrostomy tube retention balloon was aspirated. A 035 glidewire was advanced into the gastric lumen under fluoroscopic visualization. The pre-existing catheter was retracted and some re sistance experienced at the level of the retention bumper. Small amount of contrast was injected thr ough the bumper which demonstrated extravasation compatible with balloon rupture. Additional gentle traction was applied on the catheter and the catheter removed. A new 20 Irish gastrostomy tube was advanced over the wire. The wire was removed. The retention balloon was insufflated with 12 cc of d ilute contrast in normal saline. Small amount of contrast was injected into the gastric port to conf irm appropriate location. The bumper and balloon were secured and a sterile dressing was applied. P atient tolerated the procedure well left the fluoroscopy suite in stable condition. LIMITATIONS: None. FINDINGS: CONTRAST INJECTED: 15 cc of Omnipaque 300 TUBE POSITION: Completion image demonstrates replaced gastrostomy tube within the gastric lumen witho ut evidence of complication. IMPRESSION: Technically successful exchange of the 20 Irish gastrostomy tube utilizing fluoroscopic guidance as above. COMMENT: Quality ID 145: Final reports for procedures using fluoroscopy that document radiation exp osure indices, or exposure time and number of fluorographic images (if radiation exposure indices are not available) TECHNICAL DOCUMENTATION: JOB ID: [id number] 2010 [employer]- All Rights Reserved Reading location - IP/workstation name: [email or web address]
--- NOTE | 2019-10-15 15:03 | RADIOLOGY REPORT (SQ) ---
EXAM DESCRIPTION: REPLACE G TUBE; FLUORO/PERC DRAINAGE W/CATH IMAGES COMPLETED DATE/TIME: 10/15/2019 2:23 pm REASON FOR STUDY: MALIGNANT NEOSPLASM; C01 MALIGNANT NEOPLASM OF BASE OF TONGUE C01 MALIGNANT NEOPL ASM OF BASE OF TONGUE COMPARISON: 07/23/2019 FLUOROSCOPY TIME: 0.35 minutes 3 images saved to PACS. TECHNIQUE: Procedure was explained to the patient and the consent was obtained. The patient stated to the fluoroscopy suite and positioned supine on the fluoroscopy table. The abdomen was prepped in a standard fashion. Pre-existing gastrostomy tube retention balloon was aspirated. A 035 glidewire was advanced into the gastric lumen under fluoroscopic visualization. The pre-existing catheter was retracted and some re sistance experienced at the level of the retention bumper. Small amount of contrast was injected thr ough the bumper which demonstrated extravasation compatible with balloon rupture. Additional gentle traction was applied on the catheter and the catheter removed. A new 20 [place] gastrostomy tube was advanced over the wire. The wire was removed. The retention balloon was insufflated with 12 cc of d ilute contrast in normal saline. Small amount of contrast was injected into the gastric port to conf irm appropriate location. The bumper and balloon were secured and a sterile dressing was applied. P atient tolerated the procedure well left the fluoroscopy suite in stable condition. LIMITATIONS: None. FINDINGS: CONTRAST INJECTED: 15 cc of Omnipaque 300 TUBE POSITION: Completion image demonstrates replaced gastrostomy tube within the gastric lumen witho ut evidence of complication. IMPRESSION: Technically successful exchange of the 20 [place] gastrostomy tube utilizing fluoroscopic guidance as above. COMMENT: Quality ID 145: Final reports for procedures using fluoroscopy that document radiation exp osure indices, or exposure time and number of fluorographic images (if radiation exposure indices are not available) TECHNICAL DOCUMENTATION: JOB ID: [id number] 2010 [employer]- All Rights Reserved Reading location - IP/workstation name: [email or web address]
== END ==
LOC: RAD 13:11
PROVIDERS: ATTEND Internal Medicine
DX: C01 Malignant neoplasm of base of tongue (principal); G89.3 Neoplasm related pain (acute) (chronic); Z79.899 Other long term (current) drug therapy; Z79.01 Long term (current) use of anticoagulants; Z79.891 Long term (current) use of opiate analgesic
CPT/HCPCS: 75989; 49450; C1769

== ENCOUNTER 2019-11-14 18:35 | Inpatient (IN) | payer OTHER ==
[2019-11-14 20:12] LABS: HEMATOCRIT 28.4 % (36.0-47.0); HEMOGLOBIN 9.2 g/dL (12.0-15.5); MEAN CORPUSCULAR HEMOGLOBIN 29.1 pg (27.0-33.4); MEAN CORPUSCULAR HGB CONC 32.4 g/dL (32.0-36.0); MEAN CORPUSCULAR VOLUME 90 fl (80-97); PLATELET COUNT 220 10^3/uL (150-450); RED BLOOD COUNT 3.16 10^6/uL (3.72-5.28); RED CELL DISTRIBUTION WIDTH 20.9 % (11.5-14.0); WHITE BLOOD COUNT 10.9 10^3/uL (4.0-10.5)
[2019-11-14 20:19] LABS: ALBUMIN 3.3 g/dL (3.5-5.0); ALKALINE PHOSPHATASE 99 U/L (38-126); ANION GAP 8 (5-19); ASPARTATE AMINO TRANSFERASE 23 U/L (14-36); BILIRUBIN,TOTAL 0.6 mg/dL (0.2-1.3); BLOOD UREA NITROGEN 11 mg/dL (7-20); CALCIUM 9.2 mg/dL (8.4-10.2); CARBON DIOXIDE 31 mmol/L (22-30); CHLORIDE 93 mmol/L (98-107); GLUCOSE 122 mg/dL (75-110); POTASSIUM 4.2 mmol/L (3.6-5.0); TOTAL PROTEIN 7.7 g/dL (6.3-8.2)
[2019-11-14 20:39] LABS: ABSOLUTE LYMPHOCYTES# (MANUAL) 0.8 10^3/uL (0.5-4.7); ABSOLUTE MONOCYTES # (MANUAL) 0.3 10^3/uL (0.1-1.4); BAND NEUTROPHILS % (MANUAL) 1 % (3-5); BASOPHILS % (MANUAL) 0 % (0-2); EOSINOPHILS % (MANUAL) 0 % (0-6); LYMPHOCYTES % (MANUAL) 7 % (13-45); MONOCYTES % (MANUAL) 3 % (3-13); SEGMENTED NEUTROPHILS % (MAN) 89 % (42-78); TOTAL CELLS COUNTED 100
[2019-11-14 20:41] LABS: ANISOCYTOSIS 2+; PLATELET COMMENT ADEQUATE; POIKILOCYTOSIS SLIGHT; TARGET CELLS SLIGHT
[2019-11-14] MEDS ORDERED: VANCOMYCIN HCL INJ 1000 MG VIAL IV ONE (20:42)
[2019-11-14] MEDS ORDERED: PIPERACILLIN/TAZOBACTAM 4.5 GM VIAL IV ONE (20:42)
[2019-11-14] MEDS ORDERED: RINGERS SOLUTION,LACTATED 1,550 ML IV ONE (20:42)
[2019-11-14] MEDS ORDERED: ONDANSETRON HCL INJ/PF 4 MG/2 ML SDV IV ONE (20:44)
[2019-11-14 21:21] LABS: INTERNATIONAL RATION (INR) 1.39; PROTHROMBIN TIME 17.2 SEC (11.4-15.4)
--- NOTE | 2019-11-14 21:23 | ER Document Report ---
ED General - General TRAVEL OUTSIDE OF THE [place] IN LAST 30 DAYS: No <CLEO ZAIDI - Last Filed: 11/15/19 02:20> <RIANNA STEVENS IV - Last Filed: 11/15/19 05:27> - General Chief Complaint: Shortness Of Breath Stated Complaint: SHORTNESS OF BREATH Time Seen by Provider: 11/14/19 20:14 Primary Care Provider: KRISTYN SMITH MD [Primary Care Provider] - Follow up as needed - HPI Notes: Chief complaint: Nausea, vomiting and dehydration HPI: 59-year-old female diagnosed with CA of the base of the tongue in 2016 with ongoing chemotherapy now presenting with 1 week history of worsening nausea, vomiting and dehydration. Patient has a PEG tube and takes all liquids and meds through the PEG tube. She is accompanied by her daughter who relates most of the history. Patient had original surgery done at [facility]. She has subsequently been seen for consultation at [facility] include [facility] beds at the [facility] and is followed locally in the oncology clinic by Dr. Don. No fevers reported. No known exposure to COVID. Patient has been mildly short of breath tonight. She has vomited multiple times this afternoon despite taking Zofran. (CLEO ZAIDI) - Related Data Allergies/Adverse Reactions: aspirin Allergy (Verified 09/14/18 13:13) Past Medical History - General Information source: Patient, Relative, [facility] Records - Social History Smoking Status: Never Smoker Frequency of alcohol use: None Drug Abuse: None Family History: Reviewed & Not Pertinent Patient has homicidal ideation: No - Past Medical History Cardiac Medical History: Reports: Hx Hypertension Denies: Hx Coronary Artery Disease, Hx Heart Attack Pulmonary Medical History: Reports: Hx Asthma Denies: Hx Bronchitis, Hx COPD, Hx Pneumonia Neurological Medical History: Denies: Hx Cerebrovascular Accident, Hx Seizures Renal/ Medical History: Denies: Hx Peritoneal Dialysis Malignancy Medical History: Reports: Hx Breast Cancer, Other - CA of tongue Musculoskeletal Medical History: Reports Hx Arthritis Past Surgical History: Reports: Hx Abdominal Surgery - PEG tube, Hx Breast Surgery - lumpectomy, Hx Gynecologic Surgery - 1 fallopian tube removed, Hx Oral Surgery - throat surgery, Other - History of port placement oral surgery for neck cancer. Lymph node removal - Immunizations Hx Diphtheria, Pertussis, Tetanus Vaccination: No <CLEO ZAIDI - Last Filed: 11/15/19 02:20> Review of Systems <DYANCLEO Helton - Last Filed: 11/15/19 02:20> - Review of Systems Notes: Constitutional: Negative for fever. HENT: As per HPI. Eyes: Negative for visual changes. Cardiovascular: Negative for chest pain. Respiratory: As per HPI. Gastrointestinal: As per HPI. No diarrhea. Genitourinary: Negative for dysuria. Musculoskeletal: Negative for back pain. Skin: Negative for rash. Neurological: Negative for headaches, focal weakness or numbness. 10 point ROS negative except as marked above and in HPI. (CLEO ZAIDI) Physical Exam <ZAIDI,CLEO Helton - Last Filed: 11/15/19 02:20> - Vital signs Vitals: Temp Pulse Resp BP Pulse Ox 97.9 F 147 H 20 92/60 L 92 11/14/19 18:46 11/14/19 18:46 11/14/19 18:46 11/14/19 18:46 11/14/19 18:46 - Notes Notes: GENERAL: Chronically ill-appearing female approximately stated age. SKIN: Decreased turgor no rashes. HEAD: Normocephalic atraumatic. EYES: PERRLA. EOMI. Conjunctivae and sclerae clear. EARS: CANALS AND TMS CLEAR. NOSE: CLEAR. MOUTH: Deformities of mouth and tongue secondary to previous surgical intervention. Moist mucosa. Good dentition. No stridor or edema. No drooling. Patient is unable to speak above a whisper as per baseline. NECK: Supple. No masses or thyromegaly. No adenopathy. Carotids 2+ without bruits. No JVD. BACK: Symmetrical without tenderness. CHEST: Port-A-Cath right anterior chest wall. Tachypneic. Breath sounds slightly diminished at left base. HEART: Tachycardic regular rhythm. No murmur gallop or rub. ABDOMEN: PEG tube present left upper quadrant. Soft nontender without masses, organomegaly or rebound. Bowel sounds normally active. No bruits. GENITALIA: Deferred. EXTREMITIES: No edema. No calf tenderness. Cap refill less than 1.5 seconds. Dorsalis pedis and posterior tibial pulses 3+ and symmetrical. NEUROLOGICAL: GCS 15. Alert and oriented x3. Cranial nerves II through XII intact. Sensorimotor and cerebellar normal. Normal tone. PSYCHIATRIC: Appropriate affect. (CLEO ZAIDI) Course - Laboratory Result Diagrams: 11/14/19 19:26 11/14/19 19:26 <CLEO ZAIDI - Last Filed: 11/15/19 02:20> - Laboratory Result Diagrams: 11/14/19 19:26 11/14/19 19:26 - Consults dr. jacinto Time consulted: 05:23 - dr. jacinto agreed to admit <RIANNA STEVENS IV - Last Filed: 11/15/19 05:27> - Re-evaluation Re-evalutation: 11/15/19 02:06 He appears to be significantly dehydrated. My initial concern was possible sepsis although we have not defined a clear-cut source for this. She is been covered with broad-spectrum antibiotics and has been aggressively rehydrated. Because of persistent abnormality of vital signs with pressure around 90/60 despite a normal lactate with persistent tachycardia I asked the critical care team to see her. They feel her principal problem is volume depletion and recommended admission to the hospitalist service. I asked Dr. Jacinto to see her and he subsequently expressed concern about purulent drainage of the neck which was not apparent to me when I looked at her initially. I discussed case with on-call oncologist Dr. Ren who is very familiar with the patient. She does not feel that this lady is really a candidate for any type of aggressive surgical intervention and feels that she has a very guarded prognosis. She recommends that we get a CT of the neck with contrast and unless there is some eminent airway compromise she would further recommend admission by the hospitalist service and then consultation with oncology regarding additional chemotherapy and or XRT. 11/15/19 02:16 CT pending; further care transferred to Dr. Stevens at this time. (CLEO ZAIDI) - Vital Signs Vital signs: Temp Pulse Resp BP Pulse Ox 98.7 F 149 H 18 85/66 L 100 11/15/19 04:36 11/14/19 18:50 11/15/19 05:01 11/15/19 05:00 11/15/19 05:01 - Laboratory Laboratory results interpreted by me: 11/14/19 11/14/19 11/14/19 19:26 19:26 19:26 WBC 10.9 H RBC 3.16 L Hgb 9.2 L Hct 28.4 L RDW 20.9 H Seg Neuts % (Manual) 89 H Band Neutrophils % 1 L Lymphocytes % (Manual) 7 L Abs Neuts (Manual) 9.8 H PT 17.2 H VBG pH VBG HCO3 Sodium 132.2 L Chloride 93 L Carbon Dioxide 31 H Creatinine 0.49 L Glucose 122 H Albumin 3.3 L Urine Protein 11/14/19 11/15/19 21:19 00:00 WBC RBC Hgb Hct RDW Seg Neuts % (Manual) Band Neutrophils % Lymphocytes % (Manual) Abs Neuts (Manual) PT VBG pH 7.46 H VBG HCO3 32.4 H Sodium Chloride Carbon Dioxide Creatinine Glucose Albumin Urine Protein 30 H - EKG Interpretation by Me Additional EKG results interpreted by me: 11/14/19 21:26 Twelve-lead EKG from 2041 hrs. reviewed contemporaneously by me showing sinus tachycardia with a heart rate of 136. QRS axis is -8 degrees. Intervals are normal. No acute ST/T wave changes are present. Comparison with prior tracing from 09/14/2018 shows increase in rate with no other acute changes. Indication for current study: Tachycardia. (CLEO ZAIDI) - Consults dr. jacinto Reason for consultation: 11/15/19 05:27 pneumonia (RIANNA STEVENS IV) Discharge <CLEO ZAIDI - Last Filed: 11/15/19 02:20> - Discharge Admitting Provider: [facility] (Hospitalist) Unit Admitted: I[facility]U <RIANNA STEVENS IV - Last Filed: 11/15/19 05:27> - Discharge Clinical Impression: Carcinoma of tongue, Dehydration Pneumonia Qualifiers: Pneumonia type: due to unspecified organism Laterality: unspecified laterality Lung location: unspecified part of lung Qualified Code(s): J18.9 - Pneumonia, unspecified organism Disposition: ADMITTED INPATIENT Referrals: KRISTYN SMITH MD [Primary Care Provider] - Follow up as needed
--- NOTE | 2019-11-14 21:35 | RADIOLOGY REPORT (SQ) ---
CLINICAL INDICATION: SHORTNESS OF BREATH. TECHNIQUE: A single portable AP view was obtained of the chest at 2112 hours. COMPARISON: July 19, 2018. FINDINGS: The cardiomediastinal silhouette is prominent but stable. The lungs again demonstrate bibasilar airspace disease both atelectatic and consolidated. This is similar to July of last year.. No significant pleural fluid. No pneumothorax.. Port catheter remains in good position. IMPRESSION: Bibasilar airspace disease, no adverse change when compared to prior.
[2019-11-14 22:10] LABS: VENOUS BLOOD BASE EXCESS 7.7 mmol/L; VENOUS BLOOD HCO3 32.4 mmol/L (20-32); VENOUS BLOOD PCO2 47.1 mmHg (35-63); VENOUS BLOOD PH 7.46 (7.30-7.42)
[2019-11-15] MEDS ORDERED: NORMAL SALINE 1000 ML 1,000 ML IV ONE (00:25)
[2019-11-15] MEDS ORDERED: PANTOPRAZOLE SODIUM 40 MG VIAL IV ONE (00:31)
[2019-11-15 00:34] LABS: APPEARANCE,URINE CLEAR; BILIRUBIN,URINE NEGATIVE (NEGATIVE); COLOR,URINE YELLOW; GLUCOSE, URINE NEGATIVE (NEGATIVE); KETONES,URINE NEGATIVE (NEGATIVE); PROTEIN,URINE 30 mg/dL (NEGATIVE); URINE SPECIFIC GRAVITY 1.008; UROBILINOGEN,URINE NEGATIVE mg/dL (<2.0)
--- NOTE | 2019-11-15 05:19 | RADIOLOGY REPORT (SQ) ---
EXAM DESCRIPTION: CT NECK WITH IV CONTRAST COMPLETED DATE/TME: 11/15/2019 02:10 CLINICAL HISTORY: 59 years, Female, Head/neck cancer COMPARISON: 04/11/2019 TECHNIQUE: Axial CT images of the neck were obtained after the demonstration of IV contrast. Sagittal and coronal reformats were performed. DLP 323 Images stored on PACS. All CT scanners at this facility use dose modulation, iterative reconstruction, and/or weight based dosing when appropriate to reduce radiation dose to as low as reasonably achievable (ALARA). [facility]: Dose Right [facility]: CareDose [facility]: Dose Right [facility]: Teradose 4D [facility]: Hi-Dis([place]) LIMITATIONS: None. FINDINGS: Streak artifact from dental amalgam limits evaluation of the oropharynx. There is progression of the cystic and solid mass centered along the floor of the mouth which now measures 9.1 x 7.8 x 8.2 cm with extensive erosive changes of the central mandible. The soft tissue mass now extends cranially to contact the soft palate without definite invasion and causes severe narrowing of the oropharynx. Bilateral upper lobe pulmonary nodules with partially imaged consolidations developed. A right chest wall port is noted. The previously described right lateral pharyngeal wall mass is partially obscured by streak artifact from the dental amalgam. Again noted are changes of resection of the left submandibular gland. The vocal cords are symmetric. The epiglottis appears unremarkable. There is a 7 mm hypodensity within the left thyroid lobe. No further imaging is recommended. The right jugular vein remains occluded. The bilateral internal carotid arteries demonstrate no significant stenosis. The visualized intracranial structures appear unremarkable. There are no lytic or blastic bone lesions. The paranasal sinuses are clear. IMPRESSION: Progression of the floor the mouth malignancy with increased erosions involving the mandible and now contacts the soft palate without definite invasion. Development of nodular opacities with consolidations involving the upper lobes concerning for metastasis. A superimposed pneumonia may be present. Further evaluation with a dedicated CT chest may be useful. TECHNICAL DOCUMENTATION: Quality ID # 436: Final reports with documentation of one or more dose reduction techniques (e.g., Automated exposure control, adjustment of the mA and/or kV according to patient size, use of iterative reconstruction technique) copyright 2011 [employer] All Rights Reserved
[2019-11-15] MEDS ORDERED: IPRATROPIUM/ALBUTEROL 0.5-2.5 MG/3 ML AMPUL NEB PRN (05:35)
[2019-11-15] MEDS ORDERED: ACETAMINOPHEN 325 MG TABLET PO PRN (05:35)
[2019-11-15] MEDS ORDERED: VANCOMYCIN HCL 0 MG in DEXTROSE 5%-WATER 250 ML IV NR (05:45)
--- NOTE | 2019-11-15 05:50 | PDOC H&P ---
History of Present Illness Admission Date/PCP: KRISTYN SMITH MD Patient complains of: Shortness of breath History of Present Illness: ELIAZAR NEGRETE is a 59 year old female with a past medical history of cancer to the base of the tongue 2016 with ongoing chemotherapy with oncologist Dr. Don. Nonverbal and fed by PEG tube she provides history by writing stating she developed shortness of breath with nausea and vomiting prompting evaluation emergency department where she is found to have tachycardia of 130, hypotension and leukocytosis. Soft tissue neck CT is negative for drainable abscess though obvious fungating mass is draining from the submandibular space. CT does reveal upper lobe infiltrate versus metastasis. She started on empiric antibiotics and referred to the hospitalist for admission. Her CODE STATUS is verified is full code. Oncology is consulted for consideration of chemoradiation. Past Medical History Cardiac Medical History: Reports: Hypertension Denies: Coronary Artery Disease, Myocardial Infarction Pulmonary Medical History: Reports: Asthma Denies: Bronchitis, Chronic Obstructive Pulmonary Disease (COPD), Pneumonia Neurological Medical History: Denies: Seizures Malignancy Medical History: Reports: Breast Cancer, Other - CA of tongue Musculoskeltal Medical History: Reports: Arthritis Hematology: Reports: Anemia, Bleeding Tendencies Past Surgical History Past Surgical History: Reports: Other - History of port placement oral surgery for neck cancer. Lymph node removal Social History Information Source: Patient, Emergency Med Personnel, [facility] Records Lives with: Family Smoking Status: Never Smoker Frequency of Alcohol Use: None Hx Recreational Drug Use: No Drugs: None Hx Prescription Drug Abuse: No - Advance Directive Resuscitation Status: Full Code Family History Family History: Hypertension Parental Family History Reviewed: Yes Children Family History Reviewed: Yes Sibling(s) Family History Reviewed.: Yes Medication/Allergy Home Medications: Fentanyl [Duragesic 25 mcg/hr Transdermal Patch] 25 mcg TD Q3D 07/19/18 Hydrocodone Bit/Acetaminophen [Hydrocodone-Acetaminophen Soln] 15 ml PO Q6HP PRN 07/19/18 Lorazepam [Ativan 0.5 mg Tablet] 0.5 mg PO DAILYP PRN 07/19/18 Ondansetron HCl [Zofran 4 mg/5 ml Oral Soln] 5 ml PO Q8HP PRN 07/19/18 Scopolamine 1 patch TD Q3D 07/19/18 Levofloxacin [Levaquin 500 mg Tablet] 500 mg PO DAILY #10 tablet 09/16/18 Diphenhydramine HCl [Children's Allergy] 25 mg PEG Q8H #150 ml 10/13/18 Prednisolone [Prelone 15mg/5ml] 45 mg PEG DAILY #45 ml 10/13/18 Allergies/Adverse Reactions: aspirin Allergy (Verified 09/14/18 13:13) Review of Systems Constitutional: PRESENT: as per HPI, fever(s), weakness, weight loss Eyes: ABSENT: visual disturbances Ears: ABSENT: hearing changes Cardiovascular: ABSENT: chest pain, dyspnea on exertion, edema, orthropnea, palpitations Respiratory: PRESENT: as per HPI, cough, dyspnea. ABSENT: sputum Gastrointestinal: ABSENT: abdominal pain, constipation, diarrhea, hematemesis, hematochezia, nausea, vomiting Genitourinary: ABSENT: dysuria, hematuria Musculoskeletal: ABSENT: joint swelling Integumentary: ABSENT: rash, wounds Neurological: ABSENT: abnormal gait, abnormal speech, confusion, dizziness, focal weakness, syncope Psychiatric: ABSENT: anxiety, depression, homidical ideation, suicidal ideation Endocrine: ABSENT: cold intolerance, heat intolerance, polydipsia, polyuria Hematologic/Lymphatic: ABSENT: easy bleeding, easy bruising Physical Exam Vital Signs: Temp Pulse Resp BP Pulse Ox 98.7 F 149 H 18 85/66 L 100 11/15/19 04:36 11/14/19 18:50 11/15/19 05:01 11/15/19 05:00 11/15/19 05:01 Intake & Output 11/13/19 11/14/19 11/15/19 11:59 11:59 11:59 Intake Total 2550 Balance 2550 Weight 51.7 kg General appearance: PRESENT: cooperative, mild distress, other - Submandibular space occupied by large ulcerating mass with drainage Head exam: ABSENT: normocephalic - Notable for extensive head and neck dissection and submandibular mass Eye exam: PRESENT: conjunctiva pink, EOMI, PERRLA. ABSENT: scleral icterus Ear exam: PRESENT: normal external ear exam Mouth exam: PRESENT: moist Throat exam: PRESENT: other - Unable to examine Neck exam: PRESENT: lymphadenopathy, tracheal deviation. ABSENT: carotid bruit, full ROM Respiratory exam: PRESENT: accessory muscle use, crackles, symmetrical, tachypnea. ABSENT: rhonchi Cardiovascular exam: PRESENT: RRR. ABSENT: diastolic murmur, rubs, systolic murmur Pulses: PRESENT: normal dorsalis pedis pul Vascular exam: PRESENT: normal capillary refill GI/Abdominal exam: PRESENT: normal bowel sounds, soft. ABSENT: distended, guarding, mass, organolmegaly, rebound, tenderness Rectal exam: PRESENT: deferred Extremities exam: PRESENT: full ROM. ABSENT: calf tenderness, clubbing, pedal edema Neurological exam: PRESENT: alert, awake, oriented to person, oriented to place, oriented to time, oriented to situation, CN II-XII grossly intact. ABSENT: motor sensory deficit Psychiatric exam: PRESENT: appropriate affect, normal mood. ABSENT: homicidal ideation, suicidal ideation Skin exam: PRESENT: dry, intact, warm. ABSENT: cyanosis, rash Results Laboratory Results: 11/14/19 19:26 11/14/19 19:26 11/14/19 11/14/19 11/14/19 19:26 19:26 19:26 WBC 10.9 H RBC 3.16 L Hgb 9.2 L Hct 28.4 L MCV 90 MCH 29.1 MCHC 32.4 RDW 20.9 H Plt Count 220 Seg Neutrophils % Not Reportable VBG pH VBG pCO2 VBG HCO3 VBG Base Excess Sodium 132.2 L Potassium 4.2 Chloride 93 L Carbon Dioxide 31 H Anion Gap 8 BUN 11 Creatinine 0.49 L Est GFR ( Amer) > 60 Glucose 122 H Lactic Acid Calcium 9.2 Total Bilirubin 0.6 AST 23 Alkaline Phosphatase 99 Total Protein 7.7 Albumin 3.3 L Lipase 58.7 Urine Color Urine Appearance Urine pH Ur Specific [place] Urine Protein Urine Glucose (UA) Urine Ketones Urine Blood Urine RBC (Auto) 11/14/19 11/14/19 11/15/19 21:19 23:58 00:00 WBC RBC Hgb Hct MCV MCH MCHC RDW Plt Count Seg Neutrophils % VBG pH 7.46 H VBG pCO2 47.1 VBG HCO3 32.4 H VBG Base Excess 7.7 Sodium Potassium Chloride Carbon Dioxide Anion Gap BUN Creatinine Est GFR ( Amer) Glucose Lactic Acid 1.5 Calcium Total Bilirubin AST Alkaline Phosphatase Total Protein Albumin Lipase Urine Color YELLOW Urine Appearance CLEAR Urine pH 7.0 Ur Specific [place] 1.008 Urine Protein 30 H Urine Glucose (UA) NEGATIVE Urine Ketones NEGATIVE Urine Blood NEGATIVE Urine RBC (Auto) 1 06/06/20 04:20 WBC RBC Hgb Hct MCV MCH MCHC RDW Plt Count Seg Neutrophils % VBG pH VBG pCO2 VBG HCO3 VBG Base Excess Sodium Potassium Chloride Carbon Dioxide Anion Gap BUN Creatinine Est GFR ( Amer) Glucose Lactic Acid 1.5 Calcium Total Bilirubin AST Alkaline Phosphatase Total Protein Albumin Lipase Urine Color Urine Appearance Urine pH Ur Specific [place] Urine Protein Urine Glucose (UA) Urine Ketones Urine Blood Urine RBC (Auto) 11/14/19 11/15/19 19:26 00:37 Troponin I < 0.012 < 0.012 Impressions: Chest X-Ray 11/14/19 00:00 IMPRESSION: Bibasilar airspace disease, no adverse change when compared to prior. Soft Tissue Neck CT 11/15/19 02:10 IMPRESSION: Progression of the floor the mouth malignancy with increased erosions involving the mandible and now contacts the soft palate without definite invasion. Development of nodular opacities with consolidations involving the upper lobes concerning for metastasis. A superimposed pneumonia may be present. Further evaluation with a dedicated CT chest may be useful. TECHNICAL DOCUMENTATION: Quality ID # 436: Final reports with documentation of one or more dose reduction techniques (e.g., Automated exposure control, adjustment of the mA and/or kV according to patient size, use of iterative reconstruction technique) copyright 2011 [employer]- All Rights Reserved Assessment and Plan - Diagnosis (1) Carcinoma of tongue Is this a current diagnosis for this admission?: Yes Plan: Follow-up oncology consult (2) Pneumonia Qualifiers: Pneumonia type: due to unspecified organism Laterality: unspecified laterality Lung location: unspecified part of lung Qualified Code(s): J18.9 - Pneumonia, unspecified organism Is this a current diagnosis for this admission?: Yes Plan: Aspiration pneumonia versus metastasis, scopolamine patch, empiric antibiotics for pneumonic process. Follow-up CBC, blood culture and chest x-ray (3) Chronic pain syndrome Is this a current diagnosis for this admission?: Yes Plan: Fentanyl patch ordered. - Time Time Spent with patient: 25-34 minutes - Inpatient Certification Medical Necessity: Need Close Monitoring Due to Risk of Patient Decompensation
[2019-11-15] MEDS ORDERED: AMPICILLIN SOD/SULBACTAM 3 GM VIAL IV PRN (06:00)
[2019-11-15] MEDS: NORMAL SALINE 1000 ML 1,000 ML IV PRN ×2 (06:27→10:45)
[2019-11-15] MEDS: HEPARIN SOD (PORCINE) 5,000 UNIT/ML 1 ML VIAL SUBCUT SCH ×4 (06:31→21:57)
[2019-11-15 06:36] LABS: ABSOLUTE LYMPHOCYTES (AUTO) 0.5 10^3/uL (0.5-4.7); ABSOLUTE MONOCYTES (AUTO) 0.6 10^3/uL (0.1-1.4); ABSOLUTE NEUT (AUTO) 7.2 10^3/uL (1.7-8.2); BASOPHILS % (AUTO) 0.3 % (0-2); EOSINOPHILS % (AUTO) 0.4 % (0-6); HEMATOCRIT 23.5 % (36.0-47.0); LYMPHOCYTES % (AUTO) 5.7 % (13-45); MEAN CORPUSCULAR HEMOGLOBIN 29.2 pg (27.0-33.4); MEAN CORPUSCULAR HGB CONC 32.3 g/dL (32.0-36.0); MEAN CORPUSCULAR VOLUME 90 fl (80-97); MONOCYTES % (AUTO) 7.4 % (3-13); PLATELET COUNT 160 10^3/uL (150-450); RED CELL DISTRIBUTION WIDTH 21.1 % (11.5-14.0); SEGMENTED NEUTROPHILS % (AUTO) 86.2 % (42-78); TOTAL CELLS COUNTED % (AUTO) 100 %; WHITE BLOOD COUNT 8.4 10^3/uL (4.0-10.5)
[2019-11-15 06:49] LABS: HEMOGLOBIN 7.6 g/dL (12.0-15.5)
[2019-11-15] MEDS: AMPICILLIN SODIUM/SULBACTAM NA 3 GM in NORMAL SALINE 100 ML IV SCH ×4 (06:54→23:43)
[2019-11-15 07:00] LABS: BLOOD UREA NITROGEN 8 mg/dL (7-20); CALCIUM 8.6 mg/dL (8.4-10.2); CARBON DIOXIDE 32 mmol/L (22-30); CHLORIDE 101 mmol/L (98-107); GLUCOSE 104 mg/dL (75-110); POTASSIUM 3.9 mmol/L (3.6-5.0)
[2019-11-15 07:01] LABS: ANION GAP 3 (5-19)
[2019-11-15] MEDS: IPRATROPIUM/ALBUTEROL 0.5-2.5 MG/3 ML AMPUL NEB SCH ×2 (08:45→20:08)
[2019-11-15] MEDS: FLUTICASONE NASAL SPRAY 50 MCG/SPRY 120 SPRAY/16 GM NASL SCH ×2 (10:44→22:12)
[2019-11-15] MEDS: VANCOMYCIN HCL 750 MG in DEXTROSE 5%-WATER 250 ML IV SCH ×2 (10:45→18:44)
--- NOTE | 2019-11-15 12:21 | RADIOLOGY REPORT (SQ) ---
EXAM DESCRIPTION: CT CHEST WITHOUT IMAGES COMPLETED DATE/TIME: 11/15/2019 11:22 am REASON FOR STUDY: lung nodules COMPARISON: 2018. 2017. TECHNIQUE: CT scan performed of the chest without intravenous contrast. Images reviewed with lung, soft tissue and bone windows. Reconstructed coronal and sagittal MPR images reviewed. All images st ored on PACS. All CT scanners at this facility use dose modulation, iterative reconstruction, and/or weight based d osing when appropriate to reduce radiation dose to as low as reasonably achievable (ALARA). [facility]: Dose Right [facility]: CareDose [facility]: Dose Right [facility]: Teradose 4D [facility]: [employer] RADIATION DOSE: CT Rad equipment meets quality standard of care and radiation dose reduction techniq ues were employed. CTDIvol: 11.2 mGy. DLP: 347 mGy-cm. mGy. LIMITATIONS: No technical limitations. FINDINGS: LUNGS AND PLEURA: Progressive areas of patchy consolidation and volume loss in the lungs, most notable in the right middle lobe and in the lingula and left lower lobe with associated bronchie ctasis. This looks worse compared the last year. Superimposed on chronic fibrosis and scarring. Th ere also is progressive multifocal opacity predominantly in the upper lobes and right middle lobe whi ch includes ill-defined ground-glass densities and interstitial changes with more focal nodular densi ties. Includes a new 8 mm nodule left upper lobe posteriorly image /. HILAR AND MEDIASTINAL STRUCTURES: No identified masses or abnormal nodes. No obvious aneurysm. HEART AND VASCULAR STRUCTURES: Cardiomegaly. No large pericardial effusion or aortic aneurysm. UPPER ABDOMEN: No significant findings. Limited exam. THYROID AND OTHER SOFT TISSUES: No masses. No adenopathy. BONES: No significant finding. HARDWARE: Right port. OTHER: No other significant findings. IMPRESSION: 1. Progressive lung disease. Includes worsening airspace disease, multifocal. Worsening interstitia l changes and scattered nodules have also developed. Most likely infectious/inflammatory or related aspiration. Neoplasm is in the differential given the history of head and neck cancer. TECHNICAL DOCUMENTATION: JOB ID: [id number] Quality ID # [id number]: Final reports with documentation of one or more dose reduction techniques (e.g., Au tomated exposure control, adjustment of the mA and/or kV according to patient size, use of iterative reconstruction technique) 2010 [employer]- All Rights Reserved Reading location - IP/workstation name: [email or web address]
[2019-11-15] MEDS ORDERED: HYDROCODONE/ACETAMINOPHEN 5-325 MG TABLET PO PRN (15:01)
--- NOTE | 2019-11-15 15:57 | PDOC CONSULTATION ---
Consultation Consult Date: 11/15/19 Provider Consulted: CORNELIO ROD Consult reason:: Hematology/Oncology consultation was requested for patient who follows with Dr. Calle for head and neck cancer. History of Present Illness Admission Date/PCP: 11/15/19 05:44 KRISTYN CALLE MD History of Present Illness: ELIAZAR NEGRETE is a 59 year old female who was diagnosed several years ago with squamous cell carcinoma of the base of the tongue. She has been on several aggresive chemotherapy treatments over the past year, most recently, she was receiving Erbitux. Last dose was 10/13/2019. However, she was seen at [facility] and found on CT scans to have marked progression in the neck and lungs. Erbitus was stopped and she was started on Xeloda 1500 mg PO BID. However, she has only taken this for 2 days. She presented to the ED with Nausea, fever, and new draining abscess in her neck. She had received Rocephin 1G IV on 11/09 and then was started on oral Levaquin until now. Today, she states that the nausea has improved. Her pain is just a little. She is having pain along her left back/axilla. She denies any GI or urinary difficulties. She has a PEG tube which is functioning well. Past Medical History Cardiac Medical History: Reports: Hypertension Denies: Coronary Artery Disease, Myocardial Infarction Pulmonary Medical History: Reports: Asthma Denies: Bronchitis, Chronic Obstructive Pulmonary Disease (COPD), Pneumonia Neurological Medical History: Denies: Seizures Malignancy Medical History: Reports: Breast Cancer, Other - CA of tongue Musculoskeltal Medical History: Reports: Arthritis Psychiatric Medical History: Reports: Depression Hematology: Reports: Anemia, Bleeding Tendencies Past Surgical History Past Surgical History: Reports: Other - History of port placement oral surgery for neck cancer. Lymph node removal Social History Lives with: Family Smoking Status: Unknown if Ever Smoked Frequency of Alcohol Use: None Hx Recreational Drug Use: No Drugs: None Hx Prescription Drug Abuse: No - Advance Directive Resuscitation Status: Full Code Family History Family History: Hypertension Parental Family History Reviewed: No Children Family History Reviewed: No Sibling(s) Family History Reviewed.: No Medication/Allergy Home Medications: Fentanyl [Duragesic 25 mcg/hr Transdermal Patch] 25 mcg TD Q3D 07/19/18 Hydrocodone Bit/Acetaminophen [Hydrocodone-Acetaminophen Soln] 15 ml PO Q6HP PRN 07/19/18 Lorazepam [Ativan 0.5 mg Tablet] 0.5 mg PO DAILYP PRN 07/19/18 Ondansetron HCl [Zofran 4 mg/5 ml Oral Soln] 5 ml PO Q8HP PRN 07/19/18 Scopolamine 1 patch TD Q3D 07/19/18 Levofloxacin [Levaquin 500 mg Tablet] 500 mg PO DAILY #10 tablet 09/16/18 Diphenhydramine HCl [Children's Allergy] 25 mg PEG Q8H #150 ml 10/13/18 Prednisolone [Prelone 15mg/5ml] 45 mg PEG DAILY #45 ml 10/13/18 Allergies/Adverse Reactions: aspirin Allergy (Verified 09/14/18 13:13) Review of Systems Constitutional: PRESENT: fever(s). ABSENT: headache(s) Eyes: ABSENT: visual disturbances Ears: ABSENT: hearing changes Nose, Mouth, and Throat: PRESENT: mouth pain Cardiovascular: PRESENT: as per HPI Respiratory: ABSENT: dyspnea Gastrointestinal: PRESENT: nausea, vomiting. ABSENT: diarrhea Genitourinary: ABSENT: dysuria Musculoskeletal: PRESENT: back pain. ABSENT: muscle weakness Integumentary: ABSENT: rash Hematologic/Lymphatic: ABSENT: easy bleeding Physical Exam Vital Signs: Temp Pulse Resp BP Pulse Ox 97.2 F 118 H 18 107/65 99 11/15/19 07:53 11/15/19 14:00 11/15/19 08:48 11/15/19 07:53 11/15/19 08:48 Intake & Output 11/14/19 11/15/19 11/16/19 06:59 06:59 06:59 Intake Total 2550 1310 Balance 2550 1310 Weight 54.6 kg 54 kg General appearance: PRESENT: well-developed, well-nourished Exam: 59 Year old female who is unable to open her mouth and has a large, fungating mass on the right neck/jaw. Eye exam: PRESENT: EOMI Mouth exam: PRESENT: other - Unable to assess. Teeth exam: PRESENT: other - Unable to assess. Neck exam: PRESENT: other Respiratory exam: PRESENT: other - Right sided upper airway noise. No wheezes. Cardiovascular exam: PRESENT: RRR. ABSENT: systolic murmur GI/Abdominal exam: PRESENT: soft. ABSENT: tenderness Extremities exam: ABSENT: pedal edema Neurological exam: PRESENT: alert, awake Psychiatric exam: PRESENT: appropriate affect, other - Able to ask apprpriate questions in writing. Skin exam: PRESENT: normal color Results Laboratory Results: 11/15/19 06:00 11/15/19 06:00 11/14/19 11/14/19 11/14/19 19:26 19:26 19:26 WBC 10.9 H RBC 3.16 L Hgb 9.2 L Hct 28.4 L MCV 90 MCH 29.1 MCHC 32.4 RDW 20.9 H Plt Count 220 Seg Neutrophils % Not Reportable VBG pH VBG pCO2 VBG HCO3 VBG Base Excess Sodium 132.2 L Potassium 4.2 Chloride 93 L Carbon Dioxide 31 H Anion Gap 8 BUN 11 Creatinine 0.49 L Est GFR ( Amer) > 60 Glucose 122 H Lactic Acid Calcium 9.2 Total Bilirubin 0.6 AST 23 Alkaline Phosphatase 99 Total Protein 7.7 Albumin 3.3 L Lipase 58.7 Urine Color Urine Appearance Urine pH Ur Specific [place] Urine Protein Urine Glucose (UA) Urine Ketones Urine Blood Urine RBC (Auto) 11/14/19 11/14/19 11/15/19 21:19 23:58 00:00 WBC RBC Hgb Hct MCV MCH MCHC RDW Plt Count Seg Neutrophils % VBG pH 7.46 H VBG pCO2 47.1 VBG HCO3 32.4 H VBG Base Excess 7.7 Sodium Potassium Chloride Carbon Dioxide Anion Gap BUN Creatinine Est GFR ( Amer) Glucose Lactic Acid 1.5 Calcium Total Bilirubin AST Alkaline Phosphatase Total Protein Albumin Lipase Urine Color YELLOW Urine Appearance CLEAR Urine pH 7.0 Ur Specific [place] 1.008 Urine Protein 30 H Urine Glucose (UA) NEGATIVE Urine Ketones NEGATIVE Urine Blood NEGATIVE Urine RBC (Auto) 1 11/15/19 11/15/19 11/15/19 04:20 06:00 06:00 WBC 8.4 RBC 2.60 L Hgb 7.6 L Hct 23.5 L MCV 90 MCH 29.2 MCHC 32.3 RDW 21.1 H Plt Count 160 Seg Neutrophils % 86.2 H VBG pH VBG pCO2 VBG HCO3 VBG Base Excess Sodium Potassium Chloride Carbon Dioxide Anion Gap BUN Creatinine Est GFR ( Amer) Glucose Lactic Acid 1.5 0.8 Calcium Total Bilirubin AST Alkaline Phosphatase Total Protein Albumin Lipase Urine Color Urine Appearance Urine pH Ur Specific [place] Urine Protein Urine Glucose (UA) Urine Ketones Urine Blood Urine RBC (Auto) 11/15/19 06:00 WBC RBC Hgb Hct MCV MCH MCHC RDW Plt Count Seg Neutrophils % VBG pH VBG pCO2 VBG HCO3 VBG Base Excess Sodium 136.3 L Potassium 3.9 Chloride 101 Carbon Dioxide 32 H Anion Gap 3 L BUN 8 Creatinine 0.41 L Est GFR ( Amer) > 60 Glucose 104 Lactic Acid Calcium 8.6 Total Bilirubin AST Alkaline Phosphatase Total Protein Albumin Lipase Urine Color Urine Appearance Urine pH Ur Specific [place] Urine Protein Urine Glucose (UA) Urine Ketones Urine Blood Urine RBC (Auto) 11/14/19 21:15 Blood Blood Culture (PCR) - Final Staphylococcus Species 11/14/19 11/15/19 19:26 00:37 Troponin I < 0.012 < 0.012 Impressions: Chest X-Ray 11/14/19 00:00 IMPRESSION: Bibasilar airspace disease, no adverse change when compared to prior. Chest CT 11/15/19 00:00 IMPRESSION: 1. Progressive lung disease. Includes worsening airspace disease, multifocal. Worsening interstitial changes and scattered nodules have also developed. Most likely infectious/inflammatory or related aspiration. Neoplasm is in the differential given the history of head and neck cancer. Soft Tissue Neck CT 11/15/19 02:10 IMPRESSION: Progression of the floor the mouth malignancy with increased erosions involving the mandible and now contacts the soft palate without definite invasion. Development of nodular opacities with consolidations involving the upper lobes concerning for metastasis. A superimposed pneumonia may be present. Further evaluation with a dedicated CT chest may be useful. TECHNICAL DOCUMENTATION: Quality ID # 436: Final reports with documentation of one or more dose reduction techniques (e.g., Automated exposure control, adjustment of the mA and/or kV according to patient size, use of iterative reconstruction technique) copyright 2011 [employer]- All Rights Reserved Assessment & Plan - Diagnosis (1) Head and neck cancer Is this a current diagnosis for this admission?: Yes Plan: Patient has declined Hospice and requests to continue aggressive therapy. However, will Hold Xeloda and consider restarting as outpatient. (2) Gram-positive cocci bacteremia Is this a current diagnosis for this admission?: Yes Plan: On appropriate antibiotics. Port in place, but if blood cultures do not clear, consider removing the port. - Plan Summary Plan Summary: Patient was discussed with the ED physician on admission. We will continue to follow. Dr. Calle will return on Sunday. Please call with any concerns.
[2019-11-15] MEDS ORDERED: FENTANYL 50 MCG/HR PATCH.TD72 TD SCH (16:30)
[2019-11-15] MEDS ORDERED: FENTANYL 25 MCG/HR PATCH.TD72 TD SCH (16:30)
--- NOTE | 2019-11-15 17:19 | PDOC PROGRESS REPORT ---
Subjective Progress Note for:: 11/15/19 Subjective:: ELIAZAR NEGRETE is a 59 year old female with a past medical history of cancer to the base of the tongue 2016 with ongoing chemotherapy with oncologist Dr. Don who was admitted 11/15/19 with pneumonia. She is seen on afternoon rounds. She was found resting in bed, comfortable, on supplemental oxygen via [place]. She answers 'yes and no' questions by nodding her head. She denies fever, chest pain, dyspnea, abdominal pain, nausea/vomiting. She has no questions or concerns at this time. No concerns per nursing. Reason For Visit: HEAD AND NECK CANCER,PNEUMONIA Physical Exam Vital Signs: Temp Pulse Resp BP Pulse Ox 97.2 F 118 H 18 107/65 99 11/15/19 07:53 11/15/19 14:00 11/15/19 08:48 11/15/19 07:53 11/15/19 08:48 Intake & Output 11/14/19 11/15/19 11/16/19 06:59 06:59 06:59 Intake Total 2550 1310 Balance 2550 1310 Weight 54.6 kg 54 kg General appearance: PRESENT: no acute distress, cooperative, well-developed, well-nourished Head exam: PRESENT: atraumatic, normocephalic Eye exam: PRESENT: conjunctiva pink, EOMI, PERRLA. ABSENT: scleral icterus Mouth exam: PRESENT: moist, tongue midline, other - submandibular w/ large ulcerated mass Cardiovascular exam: PRESENT: RRR, tachycardia. ABSENT: diastolic murmur, rubs, systolic murmur Vascular exam: PRESENT: normal capillary refill GI/Abdominal exam: PRESENT: normal bowel sounds, soft, other - PEG. ABSENT: distended, guarding, mass, organolmegaly, rebound, tenderness Rectal exam: PRESENT: deferred Extremities exam: PRESENT: full ROM. ABSENT: calf tenderness, clubbing, pedal edema Neurological exam: PRESENT: alert, awake, oriented to person, oriented to place, oriented to time, oriented to situation, CN II-XII grossly intact. ABSENT: motor sensory deficit Psychiatric exam: PRESENT: appropriate affect, normal mood. ABSENT: homicidal ideation, suicidal ideation Skin exam: PRESENT: dry, intact, warm. ABSENT: cyanosis, rash Results Laboratory Results: 11/15/19 06:00 11/15/19 06:00 11/14/19 11/14/19 11/14/19 19:26 19:26 19:26 WBC 10.9 H RBC 3.16 L Hgb 9.2 L Hct 28.4 L MCV 90 MCH 29.1 MCHC 32.4 RDW 20.9 H Plt Count 220 Seg Neutrophils % Not Reportable VBG pH VBG pCO2 VBG HCO3 VBG Base Excess Sodium 132.2 L Potassium 4.2 Chloride 93 L Carbon Dioxide 31 H Anion Gap 8 BUN 11 Creatinine 0.49 L Est GFR ( Amer) > 60 Glucose 122 H Lactic Acid Calcium 9.2 Total Bilirubin 0.6 AST 23 Alkaline Phosphatase 99 Total Protein 7.7 Albumin 3.3 L Lipase 58.7 Urine Color Urine Appearance Urine pH Ur Specific [place] Urine Protein Urine Glucose (UA) Urine Ketones Urine Blood Urine RBC (Auto) 11/14/19 11/14/19 11/15/19 21:19 23:58 00:00 WBC RBC Hgb Hct MCV MCH MCHC RDW Plt Count Seg Neutrophils % VBG pH 7.46 H VBG pCO2 47.1 VBG HCO3 32.4 H VBG Base Excess 7.7 Sodium Potassium Chloride Carbon Dioxide Anion Gap BUN Creatinine Est GFR ( Amer) Glucose Lactic Acid 1.5 Calcium Total Bilirubin AST Alkaline Phosphatase Total Protein Albumin Lipase Urine Color YELLOW Urine Appearance CLEAR Urine pH 7.0 Ur Specific [place] 1.008 Urine Protein 30 H Urine Glucose (UA) NEGATIVE Urine Ketones NEGATIVE Urine Blood NEGATIVE Urine RBC (Auto) 1 11/15/19 11/15/19 11/15/19 04:20 06:00 06:00 WBC 8.4 RBC 2.60 L Hgb 7.6 L Hct 23.5 L MCV 90 MCH 29.2 MCHC 32.3 RDW 21.1 H Plt Count 160 Seg Neutrophils % 86.2 H VBG pH VBG pCO2 VBG HCO3 VBG Base Excess Sodium Potassium Chloride Carbon Dioxide Anion Gap BUN Creatinine Est GFR ( Amer) Glucose Lactic Acid 1.5 0.8 Calcium Total Bilirubin AST Alkaline Phosphatase Total Protein Albumin Lipase Urine Color Urine Appearance Urine pH Ur Specific [place] Urine Protein Urine Glucose (UA) Urine Ketones Urine Blood Urine RBC (Auto) 11/15/19 06:00 WBC RBC Hgb Hct MCV MCH MCHC RDW Plt Count Seg Neutrophils % VBG pH VBG pCO2 VBG HCO3 VBG Base Excess Sodium 136.3 L Potassium 3.9 Chloride 101 Carbon Dioxide 32 H Anion Gap 3 L BUN 8 Creatinine 0.41 L Est GFR ( Amer) > 60 Glucose 104 Lactic Acid Calcium 8.6 Total Bilirubin AST Alkaline Phosphatase Total Protein Albumin Lipase Urine Color Urine Appearance Urine pH Ur Specific [place] Urine Protein Urine Glucose (UA) Urine Ketones Urine Blood Urine RBC (Auto) 11/14/19 21:15 Blood Blood Culture (PCR) - Final Staphylococcus Species 11/14/19 11/15/19 19:26 00:37 Troponin I < 0.012 < 0.012 Impressions: Chest X-Ray 11/14/19 00:00 IMPRESSION: Bibasilar airspace disease, no adverse change when compared to prior. Chest CT 11/15/19 00:00 IMPRESSION: 1. Progressive lung disease. Includes worsening airspace disease, multifocal. Worsening interstitial changes and scattered nodules have also developed. Most likely infectious/inflammatory or related aspiration. Neoplasm is in the differential given the history of head and neck cancer. Soft Tissue Neck CT 11/15/19 02:10 IMPRESSION: Progression of the floor the mouth malignancy with increased erosions involving the mandible and now contacts the soft palate without definite invasion. Development of nodular opacities with consolidations involving the upper lobes concerning for metastasis. A superimposed pneumonia may be present. Further evaluation with a dedicated CT chest may be useful. TECHNICAL DOCUMENTATION: Quality ID # 436: Final reports with documentation of one or more dose reduction techniques (e.g., Automated exposure control, adjustment of the mA and/or kV according to patient size, use of iterative reconstruction technique) copyright 2011 [employer]- All Rights Reserved Assessment and Plan - Diagnosis (1) Carcinoma of tongue Is this a current diagnosis for this admission?: Yes Plan: Heme/Onc is consulted; patient is followed by Dr. Calle as outpatient. Primary management per their expertise. Continue adequate pain management. (2) Pneumonia Qualifiers: Pneumonia type: due to unspecified organism Laterality: unspecified laterality Lung location: unspecified part of lung Qualified Code(s): J18.9 - Pneumonia, unspecified organism Is this a current diagnosis for this admission?: Yes Plan: Aspiration pneumonia versus metastasis CT Chest revealed progressive lung disease and multifocal airspace disease; infectious or inflammatory related to aspiration. Malignancy not ruled out. Blood cultures pending. Supplemental oxygen as needed Scheduled and as needed nebs Continue scopolamine patch Continue PPI Aspiration precautions Empiric Unasyn and Vancomycin pneumonic process. Consider steroids for pneumonitis. Follow-up CBC (3) Chronic pain syndrome Is this a current diagnosis for this admission?: Yes Plan: Continue home dose Fentanyl patches. Todd as needed Nonpharmacological interventions.
[2019-11-15] MEDS ORDERED: CAPECITABINE 1000 MG PO SCH (18:00)
--- NOTE | 2019-11-15 20:51 | EKG REPORT ---
SEVERITY:- BORDERLINE ECG - SINUS TACHYCARDIA BORDERLINE INFERIOR Q WAVES BORDERLINE R WAVE PROGRESSION, ANTERIOR LEADS : Confirmed by: Juan Ramon Ocampo 15-Nov-2019 20:51:20
--- NOTE | 2019-11-15 20:51 | EKG REPORT ---
SEVERITY:- BORDERLINE ECG - SINUS TACHYCARDIA CONSIDER INFERIOR INFARCT CONSIDER ANTERIOR INFARCT : Confirmed by: Juan Ramon Ocampo 15-Nov-2019 20:51:03
[2019-11-15] MEDS ORDERED: OLANZAPINE 2.5 MG TABLET PO SCH (22:00)
[2019-11-16] MEDS: VANCOMYCIN HCL 750 MG in DEXTROSE 5%-WATER 250 ML IV SCH (01:27)
[2019-11-16] MEDS ORDERED: SODIUM BICARBONATE 8.4% INJ 50 MEQ/50 ML DISP.SYRIN ONE ×2 (04:41→09:51)
[2019-11-16 04:59] LABS: MEAN CORPUSCULAR HEMOGLOBIN 28.3 pg (27.0-33.4); MEAN CORPUSCULAR HGB CONC 30.3 g/dL (32.0-36.0); PLATELET COUNT 115 10^3/uL (150-450); RED BLOOD COUNT 2.35 10^6/uL (3.72-5.28); WHITE BLOOD COUNT 11.5 10^3/uL (4.0-10.5)
[2019-11-16 05:02] LABS: HEMOGLOBIN 6.7 g/dL (12.0-15.5)
--- NOTE | 2019-11-16 05:08 | Progress Note ---
Provider Note Provider Note: MD responded to CODE BLUE, patient found unresponsive with PEA rapidly developing asystole. CPR was initiated, epinephrine every 3 minutes, trial of bicarb. Bovie bag ventilation was met with resistance and lack of chest rise. Several attempts to intubate from diesel tractor engine mechanic and anesthesiology were unsuccessful. High-quality CPR continued greater than 30 minutes in asystole, without shockable rhythm and CPR was discontinued.
[2019-11-16 05:14] LABS: ANION GAP 5 (5-19); BLOOD UREA NITROGEN 6 mg/dL (7-20); CALCIUM 8.6 mg/dL (8.4-10.2); CARBON DIOXIDE 31 mmol/L (22-30); CHLORIDE 101 mmol/L (98-107); GLUCOSE 167 mg/dL (75-110); POTASSIUM 4.6 mmol/L (3.6-5.0)
[2019-11-16 05:24] LABS: ABSOLUTE LYMPHOCYTES# (MANUAL) 3.6 10^3/uL (0.5-4.7); BAND NEUTROPHILS % (MANUAL) 4 % (3-5); BASOPHILS % (MANUAL) 0 % (0-2); EOSINOPHILS % (MANUAL) 0 % (0-6); LYMPHOCYTES % (MANUAL) 31 % (13-45); MONOCYTES % (MANUAL) 9 % (3-13); SEGMENTED NEUTROPHILS % (MAN) 56 % (42-78); TOTAL CELLS COUNTED 100
[2019-11-16 05:25] LABS: ANISOCYTOSIS 2+; PLATELET COMMENT ADEQUATE; POLYCHROMASIA 2+
--- NOTE | 2019-11-16 06:59 | Death Summary ---
Summary Date : 11/16/19 Time of :: 04:57 Autopsy: No Resuscitation Status: Full Code - Final Diagnosis (1) Carcinoma of tongue Is this a current diagnosis for this admission?: Yes (2) Pneumonia Is this a current diagnosis for this admission?: Yes (3) Chronic pain syndrome Is this a current diagnosis for this admission?: Yes Hospital Course:: Patient discovered by nursing unresponsive with PEA, CODE BLUE, initiating CPR and announced overhead. Patient's was contacted who verified full code, patient developed asystole receiving high-quality CPR, Bovie bag ventilations were unsuccessful with chest rise, multiple intubations were unsuccessful from major case detective and anesthesiology. Patient remained in asystole throughout 30- minute of CPR at which time attempt was announced at 4:57 AM.
[2019-11-16 08:32] VITALS: BP 130/67
[2019-11-16] MEDS ORDERED: EPINEPHRINE INJ 1 MG/10 ML DISP.SYRIN ONE (09:51)
[2019-11-16] MEDS ORDERED: PANTOPRAZOLE SODIUM 40 MG VIAL IV SCH (10:00)
[2019-11-16] MEDS ORDERED: SCOPOLAMINE HYDROBROMIDE 1.5 MG PATCH.TD72 TD SCH (10:00)
[2019-11-17 08:05] LABS: MEAN CORPUSCULAR VOLUME 94 fl (80-97)
[2019-11-17] MEDS ORDERED: FENTANYL 75 MCG/HR PATCH.TD72 TD SCH (10:00)
== END 2019-11-16 09:30 | DRG 194 ==
LOC: ER 18:35 → EH 11-15 05:44 → 3S 11-15 08:30
PROVIDERS: ADMIT Internal Medicine; ATTEND Internal Medicine
DX: J18.9 Pneumonia, unspecified organism (principal); C78.00 Secondary malignant neoplasm of unspecified lung; C79.81 Secondary malignant neoplasm of breast; R78.81 Bacteremia; C76.0 Malignant neoplasm of head, face and neck; G89.4 Chronic pain syndrome; I10 Essential (primary) hypertension; F32.9 Major depressive disorder, single episode, unspecified; D64.9 Anemia, unspecified; C01 Malignant neoplasm of base of tongue; B96.89 Other specified bacterial agents as the cause of diseases classified elsewhere; R40.2412 Glasgow coma scale score 13-15, at arrival to emergency department; E86.0 Dehydration; Z79.899 Other long term (current) drug therapy; Z88.6 Allergy status to analgesic agent; Z92.21 Personal history of antineoplastic chemotherapy; Z79.891 Long term (current) use of opiate analgesic; Z93.1 Gastrostomy status
CPT/HCPCS: 36415; 36591; 70491; 71045; 71250; 80048; 80053; 81001; 82803; 83605; 83690; 84484; 85025; 85610; 87040; 87077; 87150; 87186; 92950; 93005; 93010; 94640; 96361; 96365; 96367; 96374; 96375; 99285; C9113; J0171; J0295; J1644; J2405; J2543; J3370; J3490; J7030; J7050; J7060; J7120; J7620